=== PATIENT | male | born 1955 | race Hispanic/Latino ===

== ENCOUNTER 2017-04-04 06:49 | Inpatient (IN) | payer OTHER ==
[~2017-04-04] VITALS: Ht 175.3 cm; Wt 101.7 kg
--- NOTE | 2017-04-04 07:27 | ED GENERAL ADULT ---
History of Present Illness General Chief Complaint: Abdominal Pain/Flank Pain Stated Complaint: ABD PAIN, DIARRHEA SINCE LAST SATURDAY Source: patient Exam Limitations: no limitations Vital Signs & Intake/Output Vital Signs & Intake/Output Vital Signs Date Time Temp Pulse Resp B/P B/P Pulse O2 O2 Flow FiO2 Mean Ox Delivery Rate 04/04 1848 92 104/58 04/04 1600 98.1 92 18 104/58 97 Room Air 04/04 1555 98.0 82 20 108/51 99 Room Air 04/04 1440 98.4 88 20 98/50 99 Room Air 04/04 1253 100 108/60 04/04 1253 88 18 96/58 04/04 1210 84 20 82/50 04/04 1044 94/42 04/04 0915 94 18 96/56 04/04 0852 96/50 04/04 0847 66/38 04/04 0825 76/46 04/04 0813 102 18 68/46 04/04 0728 100 18 82/45 99 Room Air 04/04 0707 97.0 107 20 62/41 Allergies Coded Allergies: cimetidine (From TAGAMET) (UNKNOWN 04/04/17) Reconcile Medications Fenofibric Acid (Choline) (Fenofibric Acid) 135 MG CAPSULE.DR 1 CAP PO DAILY CHOLESTEROL (Reported) Lisinopril 20 MG TABLET 1 TAB PO DAILY HEART (Reported) Omeprazole 40 MG CAPSULE.DR 1 CAP PO DAILY GI (Reported) Simvastatin (Simvastatin*) 40 MG TABLET 1 TAB PO QPM CHOLESTEROL (Reported) Tamsulosin HCl 0.4 MG CAP.ER.24H 1 CAP PO DAILY PROSTATE (Reported) Triage Note: PT C/O ABDOMINAL PAIN, DIARRHEA AND SHAKINESS SINCE SATURDAY. WENT TO WALK IN ON SATURDAY AND TOLD HE HAD GASTROENTERITIS, TOLD NPO X 24 HRS. YESTERDAY ATE [employer] BROTH AND THINGS HAVE GOTTEN WORSE. PT STATES HIS NIPPLES ARE SORE.PT DENIES CP PT C/O DIZZINESS. HYPOTENSIVE IN TRIAGE Triage Nurses Notes Reviewed? yes Onset: Abrupt Duration: day(s): Timing: recent history HPI: 04/04/17 7:51 am 61-year-old male presents to the emergency department complaining of multiple episodes of diarrhea and nausea. He was seen in urgent care center several days ago and diagnosed with viral syndrome. He has a past medical history of hypertension and hyperlipidemia. He is complaining of severe weakness. He also has right lower quadrant abdominal pain. He denies any blood in the stool. He had a blood pressure of 80 in the waiting room, and so he was brought immediately into the ED. Past History Travel History Traveled to [place] past 21 day No Medical History Any Pertinent Medical History? see below for history Cardiovascular: hypertension, hyperlipidemia Gastrointestinal: GERD Surgical History Surgical History: none Psychosocial History What is your primary language Ch[place] Tobacco Use: Quit >30 days ago ETOH Use: occasional use Illicit Drug Use: denies illicit drug use Family History Hx Contributory? No Review of Systems Review of Systems Constitutional: Reports: fever. EENTM: Denies: visual changes. Respiratory: Denies: short of breath. Cardiovascular: Denies: chest pain. GI: Reports: abdominal pain, diarrhea, nausea. Genitourinary: Reports: no symptoms. Musculoskeletal: Reports: no symptoms. Skin: Reports: no symptoms. Neurological/Psychological: Reports: no symptoms. Hematologic/Endocrine: Reports: no symptoms. Immunologic/Allergic: Reports: no symptoms. Physical Exam Physical Exam General Appearance: well developed/nourished, alert, awake, anxious, mild distress Head: atraumatic, normal appearance Eyes: Bilateral: normal appearance, PERRL, EOMI. Ears, Nose, Throat: normal pharynx, normal ENT inspection Neck: normal inspection, supple, full range of motion Respiratory: normal breath sounds, chest non-tender, no respiratory distress Cardiovascular: regular rate/rhythm Peripheral Pulses: 4+ radial (R), 4+ radial (L) Gastrointestinal: tenderness Rectal: heme positive stool Extremities: normal inspection, normal range of motion Neurologic/Psych: no motor/sensory deficits, awake, alert, oriented x 3 Skin: intact, normal color, warm/dry Core Measures ACS in differential dx? No CVA/TIA Diagnosis: No Sepsis Present: No Sepsis Focused Exam Completed? No Progress Differential Diagnoses I considered the following diagnoses in my evaluation of the patient: [GI bleed, diverticulosis, diverticulitis, viral syndrome, influenza, appendicitis, dehydration and renal failure] Plan of Care: Orders Procedure Date/time Status CBC WITHOUT DIFFERENTIAL 04/05 599 Active BASIC ELECTROLYTES PLUS BUN&CR 04/05 599 Active Heart Healthy Diet 04/04 D Active Code Status 04/04 2058 Active Vital Signs 04/04 1615 Active Teach/Educate 02/15 1616 Active Pain Treatment and Response 04/04 1616 Active Nutritional Intake, Monitor 04/04 1616 Active Isolation 04/04 1616 Active Intake & Output 04/04 1616 Active Patient Care Conference 04/04 1616 Active Activity/Ambulation 04/04 1616 Active Pathway - chart 04/04 1432 Active House Staff 04/04 1432 Active US-RENAL/KIDNEY 04/04 1429 Active URINE DRUGS OF ABUSE 04/04 1429 Active URINE OSMOLALITY 04/04 1429 Active URINE LYTES, SPOT 04/04 1429 Active URINALYSIS 04/04 1429 Complete ACETOMINOPHEN 04/04 1429 Complete SERUM OSMOLALITY 04/04 1429 Complete ETHANOL 04/04 1429 Complete BASIC ELECTROLYTES PLUS BUN&CR 04/04 1429 Complete Patient Data 04/04 1402 Active ED Holding Orders 04/04 1359 Active Admit to inpatient 04/04 1359 Active Vital Signs 04/04 1359 Active CULTURE,STOOL 04/04 1246 Active C.DIFFICILE 04/04 1246 Active LACTIC ACID 04/04 1224 Active LACTIC ACID 04/04 1057 Complete TROPONIN LEVEL 04/04 0757 Complete LACTIC ACID 04/04 0757 Complete COMPREHENSIVE METABOLIC PANEL 04/04 0757 Complete CBC WITHOUT DIFFERENTIAL 04/04 0757 Complete EKG 04/04 0757 Active TYPE & SCREEN (NOT X-MATCH) 04/04 0757 Complete Intake & Output 04/04 0729 Active TRC EVALUATION (GEN) 04/04 UNK Active VTE Mechanical Prophylaxis 04/04 UNK Active Intake & Output 04/04 UNK Complete Osorio, Insertion/Removal/Asses 04/04 UNK Active Current Medications Sig/Stevie Start time Last Medication Dose Stop Time Status Admin Fenofibrate 145 MG DAILY 04/05 1000 AC (Tricor) Heparin Sodium 5,000 UNIT Q8 04/04 2200 AC 04/04 (Porcine) 2047 Atorvastatin Calcium 40 MG 1700 04/04 1700 AC (Lipitor) Tamsulosin HCl 0.4 MG DAILY 04/04 1607 AC (Flomax) Sodium Chloride 1,000 ML Q10H 04/04 1545 AC 04/04 (Normal Saline 0.9%) 04/05 1144 1715 Acetaminophen 650 MG Q6P PRN 04/04 1445 AC 04/04 (Tylenol) 1849 Acetaminophen 1,000 MG Q6P PRN 04/04 1445 AC (Ofirmev) Laboratory Tests 04/04/17 1830: Anion Gap 24 H, Estimated GFR 3 L, BUN/Creatinine Ratio 6.3 L, Serum Osmolality 317 H, Acetaminophen < 10.0 L, Serum Alcohol < 10.0 04/04/17 1745: Urinalysis HEAVY H, Urine Color BROWN H, Urine Clarity HAZY H, Urine pH 5.5, Ur Specific [place] >= 1.030, Urine Protein >=300 H, Urine Ketones NEG, Urine Nitrite NEG, Urine Bilirubin SMALL H, Urine Urobilinogen 0.2, Ur Leukocyte Esterase NEG, Ur Microscopic SEDIMENT EXAMINED, Urine RBC 5-10 H, Urine WBC 5- 10 H, Ur Epithelial Cells FEW, Urine Bacteria FEW H, Urine Hemoglobin MOD H, Urine Glucose NEG 04/04/17 1745: Methadone Screen Pending, Barbiturate Screen Pending, Ur Phencyclidine Scrn Pending, Amphetamines Screen Pending, U Benzodiazepines Scrn Pending, Urine Cocaine Screen Pending, Urine Cannabis Screen Pending, Urine Osmolality 321, Ur Random Creatinine Pending, Ur Random Sodium Pending, Ur Random Potassium Pending , Fraction Sodium Excret Pending 04/04/17 1524: Lactic Acid Cancelled 04/04/17 1230: Lactic Acid 1.1 04/04/17 1037: Anion Gap 31 H, Estimated GFR 3 L, BUN/Creatinine Ratio 6.2 L, Glucose 100 H , Lactic Acid 2.8 H, Calcium 8.8, Total Bilirubin 0.4, AST 18, ALT 31, Alkaline Phosphatase 41, Troponin I 0.02, Total Protein 6.9, Albumin 4.0, Globulin 2.9, Albumin/Globulin Ratio 1.4, CBC w Diff NO MAN DIFF REQ, RBC 4.74, MCV 81.9, MCH 28.2, MCHC 34.4, RDW 13.6, MPV 8.6, Gran % 64.2, Lymphocytes % 22.8, Monocytes % 12.5 H, Eosinophils % 0.2, Basophils % 0.3, Absolute Granulocytes 4.2, Absolute Lymphocytes 1.5, Absolute Monocytes 0.8 H, Absolute Eosinophils 0, Absolute Basophils 0 Microbiology 04/04 1246 STOOL: Clostridium difficile Toxin A & B - ORD 04/04 1246 STOOL: Stool Culture - ORD The patient was treated with IV fluids. Labs were sent Initial ED EKG: pending Departure Departure Disposition: STILL A PATIENT Condition: Stable Clinical Impression Primary Impression: Abdominal pain Secondary Impressions: Enteritis, GI bleed, Renal failure Referrals: Ivan TORRES,Roberto Luna (PCP/Family) Departure Forms: Customer Survey General Discharge Information Comments 04/04/17 7:30 am 61-year-old man presents to the emergency department complaining of nausea and multiple episodes of diarrhea. He was seen in urgent care center and diagnosed with a viral syndrome. He has past medical history of hypertension and hyperlipidemia. No recent travel outside the country. Now he presents with ongoing severe diarrhea, he denies any blood in the diarrhea. He also complains of weakness. He had a blood pressure of 80 in the waiting room. The patient was treated with IV fluids 5 L, the case was discussed with nephrology, the patient was admitted to the hospital for further care. Admission Note Spoke With: Katelynn Herbert MD Documentation of Exam: Documentation of any treatments & extenuating circumstances including Concerns Regarding Discharge (functional status, medication knowledge or non-compliance, living conditions, etc.) that warrant an admission rather than observation: [The patient needs admission for IV fluids, monitoring of hemodynamic status, renal consultation. I did speak briefly with Dr. Daniel who is on vacation. He agrees with the plan of care] Critical Care Note Critical Care Note Critical Care Time: 30-74 min
[2017-04-04] MEDS ORDERED: SIMVASTATIN40 M1 PO (09:01)
[2017-04-04] MEDS ORDERED: FENOFIBRIC ACI135 M1 PO (09:01)
[2017-04-04] MEDS ORDERED: TAMSULOSIN HCL0.4 M1 PO (09:01)
[2017-04-04] MEDS ORDERED: LISINOPRIL20 M1 PO (09:02)
[2017-04-04] MEDS ORDERED: OMEPRAZOLE40 M1 PO (09:02)
[2017-04-04 10:47] LABS: ABSOLUTE BASOPHIL COUNT 0 /CUMM (0.0-0.2); ABSOLUTE EOSINOPHIL COUNT 0 /CUMM (0.0-0.7); ABSOLUTE GRANULOCYTE CT 4.2 /CUMM (1.4-6.5); ABSOLUTE LYMPH COUNT 1.5 /CUMM (1.2-3.4); ABSOLUTE MONOCYTE COUNT 0.8 /CUMM (0.10-0.60); BASOPHIL % 0.3 % (0.0-2.0); EOSINOPHIL % 0.2 % (0-5); GRANULOCYTE % 64.2 % (42.2-75.2); HEMATOCRIT 38.8 % (42-52); MEAN CORPUSCULAR HGB 28.2 PG (27.0-31.0); MEAN CORPUSCULAR HGB CONC 34.4 G/DL (33.0-37.0); MEAN CORPUSCULAR VOLUME 81.9 FL (80.0-94.0); MEAN PLATELET VOLUME 8.6 FL (7.4-10.4); PLATELET COUNT 222 /CUMM (130-400); RBC DISTRIBUTION WIDTH 13.6 % (11.5-14.5); RED BLOOD CELL CT 4.74 /CUMM (4.70-6.10); WHITE BLOOD CELL COUNT 6.5 /CUMM (4.8-10.8)
--- NOTE | 2017-04-04 12:57 | RADIOLOGY REPORT ---
EXAMINATION: XR PORTABLE CHEST CLINICAL INFORMATION: CHF COMPARISON: None TECHNIQUE: Portable frontal view of the chest was obtained. FINDINGS: Minimal bibasilar opacities likely atelectasis. Lungs otherwise clear. Cardiac silhouette mediastinum pulmonary vascularity normal IMPRESSION: Minimal bibasilar opacities likely atelectasis No x-ray evidence for CHF
--- NOTE | 2017-04-04 13:37 | CT SCAN REPORT ---
EXAMINATION: CT ABDOMEN AND PELVIS WITHOUT CONTRAST CLINICAL INFORMATION: Left lower quadrant pain COMPARISON: To 3 to TECHNIQUE: Multidetector volumetric imaging was performed from the lung bases through the pubic symphysis. Sagittal and coronal reformatted images were obtained on the technologist workstation. Total exam dose-length product 843 mGy-cm FINDINGS: The lack of intravenous contrast limits evaluation of the solid visceral organs including the liver, spleen, pancreas, and kidneys. LUNG BASES: The visualized lung bases are unremarkable. LIVER, GALLBLADDER, AND BILIARY TREE: Liver is diffusely hypoattenuating consistent with diffuse hepatic steatosis. There is focal fatty sparing adjacent the fundus of the gallbladder. The gallbladder is unremarkable with no evidence of radiopaque gallstones, gallbladder wall thickening, or obvious pericholecystic inflammatory changes. PANCREAS: Limited non-contrast evaluation is normal. No zoran-pancreatic fluid. SPLEEN: Limited non-contrast evaluation is normal. ADRENAL GLANDS: Normal; no adrenal mass. KIDNEYS AND URETERS: Limited non-contrast evaluation is normal. No hydronephrosis, hydroureter, or calculi seen. No perinephric stranding. GASTROINTESTINAL TRACT: Small bowel and colon are non-dilated. No bowel wall thickening. No pericolonic inflammatory changes to suggest colitis or diverticulitis. Normal appendix. ABDOMINAL WALL: There is a fat-containing left umbilical hernia. LYMPH NODES: No pathologically enlarged lymph nodes in the abdomen or pelvis. VASCULAR: Normal caliber abdominal aorta. BLADDER: Unremarkable. PELVIC VISCERA: Normal noncontrast appearance of the prostate and seminal vesicles. OSSEOUS STRUCTURES: No acute or suspicious osseous abnormalities. IMPRESSION: No CT findings to explain left lower quadrant pain. No evidence of colitis or diverticulitis. No obstructive uropathy. Diffuse hepatic steatosis.
--- NOTE | 2017-04-04 14:45 | History & Physical ---
FlemingRamila 04/04/17 1445: General Information and HPI MD Statement: I have seen and personally examined TONNY MORALES SR and documented this H&P. The patient is a 61 year old M who presented with a patient stated chief complaint of [Diarrhea]. Source of Information: patient Exam Limitations: no limitations History of Present Illness: Mr. Morales is a 61-year-old male w/ PMH of HTN, HLD, GERD, presented to the emergency department with CC of multiple episodes of diarrhea and abdominal pain starting Thursday 03/30 after a eating out with family members. Patient started to have watery diarrhea the night after dinner on 03/30, and had been ongoing since then. Patient went to walkin clinic and was told to maintain hydration with Gatorade as he was diagnosed with viral syndrome. However, he felt the symptoms did not improve at all. He tried to eat a toast and scrambled egg on and could only finish part of the meal, and have to go to restroom repeatedly with watery diarrhea. Patient felt lightheaded and exertional dyspnea and presented to ER. In the ER, patient was complaining of severe weakness, and right lower quadrant abdominal pain. Patient denied any blood in the stool ever. Patient had a blood pressure of 80s in the waiting room, and so he was brought immediately into the ED to start IV fluid hydration, and had 5L of NS infused by the time we saw him. Patient felt improved after IV fluid however still have 2 more episodes of diarrhea in the ER.. Allergies/Medications Allergies: Coded Allergies: cimetidine (From TAGAMET) (UNKNOWN 04/04/17) Home Med list Fenofibric Acid (Choline) (Fenofibric Acid) 135 MG CAPSULE.DR 1 CAP PO DAILY CHOLESTEROL (Reported) Lisinopril 20 MG TABLET 1 TAB PO DAILY HEART (Reported) Omeprazole 40 MG CAPSULE.DR 1 CAP PO DAILY GI (Reported) Simvastatin (Simvastatin*) 40 MG TABLET 1 TAB PO QPM CHOLESTEROL (Reported) Tamsulosin HCl 0.4 MG CAP.ER.24H 1 CAP PO DAILY PROSTATE (Reported) Past History Travel History Traveled to [place] past 21 day No Medical History Cardiovascular: hypertension, hyperlipidemia Respiratory: SLLEP APNEA Gastrointestinal: GERD Renal: ? CYST ON KIDNEY Surgical History Surgical History: none Past Family/Social History Psychosocial History Smoking Status: Former Smoker ETOH Use: occasional use Illicit Drug Use: marijuana, Last use of Marijuana 1 month ago Review of Systems Review of Systems Constitutional: Reports: see HPI. Exam & Diagnostic Data Last 24 Hrs of Vital Signs/I&O Vital Signs Date Time Temp Pulse Resp B/P B/P Pulse O2 O2 Flow FiO2 Mean Ox Delivery Rate 04/04 1555 98.0 82 20 108/51 99 Room Air 04/04 1440 98.4 88 20 98/50 99 Room Air 04/04 1253 100 108/60 04/04 1253 88 18 96/58 04/04 1210 84 20 82/50 04/04 1044 94/42 04/04 0915 94 18 96/56 04/04 0852 96/50 04/04 0847 66/38 04/04 0825 76/46 04/04 0813 102 18 68/46 04/04 0728 100 18 82/45 99 Room Air 04/04 0707 97.0 107 20 62/41 Intake & Output 04/04 1600 04/04 0800 04/04 0000 Intake Total 5000 Output Total Balance 5000 Intake, IV 5000 Patient 106.594 kg Weight Weight Reported by Patient Measurement Method Physical Exam General Appearance Alert, Oriented X3, Cooperative, No Acute Distress Skin No Significant Lesion Skin Temp/Moisture Exam: Cool/Dry Sepsis Skin Exam (color): Normal for Ethnicity HEENT Atraumatic, PERRLA Neck Supple, No JVD Cardiovascular Regular Rate, Normal S1, Normal S2 Lungs Clear to Auscultation, Normal Air Movement Abdomen Normal Bowel Sounds, Soft, diffuse pain /10 Neurological Normal Speech, Strength at 5/5 X4 Ext Extremities No Edema, Normal Pulses, No Tenderness/Swelling Diagnostic Data EKG Results NSR w/o significant ST-T abnormalities Assessment/Plan Assessment: Mr. Morales is a 61-year-old male w/ PMH of HTN, HLD, GERD, BPH, Osteoarthritis, presented to the emergency department with CC of multiple episodes of diarrhea and abdominal pain starting Thursday 03/30 after a eating out with family members. Patient started to have watery diarrhea the night after dinner on 03/30, and had been ongoing since then. Patient went to walkin clinic and was told to maintain hydration with Gatorade as he was diagnosed with viral syndrome. However, he felt the symptoms did not improve at all. He tried to eat a toast and scrambled egg on 04/03 and could only finish part of the meal, and have to go to restroom repeatedly with watery diarrhea. Patient felt lightheaded and exertional dyspnea and presented to ER. In the ER, patient was complaining of severe weakness, and right lower quadrant abdominal pain. Patient denied any blood in the stool ever. Patient had a blood pressure of 80s in the waiting room , and so he was brought immediately into the ED to start IV fluid hydration, and had 5L of NS infused by the time we saw him. Patient felt improved after IV fluid however still have 2 more episodes of diarrhea in the ER. Of note, none of the family member had similar symptoms after dinner from Saturday. On admission Vitals:Tmax 98.4, HR 80s-100s, RR 18-20, BP 62/41 - 108/51 Physical exam as above -CBC: Unremarkable -BMP: Na 141, K 5.5, Cl 103, CO2 7, Anion Gap 31, BUN 93, Cr 14.9, Glucose 100, Lactic Acid 2.8 -> 1.1 -CXR: Minimal bibasilar opacities likely atelectasis, No evidence of CHF -AB CT: No CT findings to explain left lower quadrant pain. No evidence of colitis or diverticulitis. No obstructive uropathy. Diffuse hepatic Steatosis. -EKG: Normal sinus rhythm without significant ST-T abnormalities. -Interventions in ER: IV NS x 5 bags Assessment: Mr. Morales is a 61-year-old male w/ PMH of HTN, HLD, GERD, presented to the emergency department with CC of multiple episodes of diarrhea and abdominal pain starting Thursday 03/30 after a eating out with family members. Patient started to have watery diarrhea the night after dinner on 03/30, and had been ongoing since then. Patient went to walkin clinic and was told to maintain hydration with Gatorade as he was diagnosed with viral syndrome. However, he felt the symptoms did not improve at all. He tried to eat a toast and scrambled egg on and could only finish part of the meal, and have to go to restroom repeatedly with watery diarrhea. Patient felt lightheaded and exertional dyspnea and presented to ER. Patient's lab on admission represented High AG Metabolic Acidosis with calculated serum OSM 285. Patient's persistent diarrhea would mostly cause a Non -AG metabolic acidosis, however patient's lactic acidosis/Starvational ketoacidosis (no [place] lab yet), likely from dehydration, may still contribute to a clinical picture of HAGMA. Patient had no hx of using ASA, Tylenol for osteoarthritis, diabetes, and denied heavy use of alcohol as a social drinker. Patient would need further evaluation to confirm rule out above cause, and stablization of volume status. Patient denied much urine output after 5L of fluid and had no sensation of urgency on pressing of suprapubic area. Patient's Cr elevation to 14 could be a combined picture of CÉSAR from dehydration and ATN from hypotensive episodes. Problem list #HAGMA #Diarrhea #Acute renal failure/ATN #Chronic hx of HTN, HLD, BPH, osteoarthritis, GERD Plan - Admit to Gen Med - Continue IVF NS @ 100cc/hr - Continued home meds including Fenofibrate, Lipitor, Flomax - Hold PPI, lisinopril 2/2 patient's CÉSAR/ATN - Recheck BEP tonight and in the AM. - Pending final stool/blood culture. - Pending Renal U/S to rule out any acute issues. DVT prophylaxis Heparin + ALPS Heart Healthy Diet Full Code As Ranked By This Provider Problem List: 1. Enteritis 2. Abdominal pain 3. Renal failure Core Measures/Misc (11/04) Acute Coronary Syndrome ACS Diagnosis: No Congestive Heart Failure Congestive Heart Failure Diagnosis No Cerebrovascular Accident CVA/TIA Diagnosis: No VTE (View Protocol) VTE Risk Factors Age>40 No Mechanical VTE Prophylaxis d/t N/A MechProphylax Ordered No VTE Pharm Prophylaxis d/t NA PharmProphylax ordered Sepsis (View protocol) Sepsis Present: No Arian Henao 04/04/17 1456: Attending MD Review Statement Attending Statement Attending MD Statement: examined this patient, discuss w/resident/PA/STUDENT FINANCIAL SERVICES COUNSELOR, agreed w/resident/PA/STUDENT FINANCIAL SERVICES COUNSELOR, discussed with family, reviewed EMR data (avail), discussed with nursing, discussed with case mgmt, reviewed images, amended to note Attending Assessment/Plan: 61 o/m with unknown pmh comes with vomiting and diarrhea. Patient found to have acute renal failure with high anion gap metabolic acidosis. Patient received 5l of NS fluids in ER. Patient was hypotensive on arrival to ER but responded to fluid challenge. Patient is being admitted to inpatient medical services for ARF possible IVVD possible ATN. Patient continue fluids, frequent bmp and nephrology consult. Send for urine lytes, serum osmolality, urine osmolality, Renal USG, salicylate level, blood alcohol level. gi/dvt prophylaxis full code. Milind Cartwright MD 04/04/17 1539: Resident Review Statement Resident Statement: examined this patient, discussed with administrative intern, agreed with administrative intern, reviewed EMR data (avail), discussed with nursing, discussed with case mgmt, reviewed images, amended to note Other Findings: 61 yo M with pmh of hypertension, hyperlipidemia, GERD, BPH, presented to the emergency department with complaints of diarrhea and abdominal cramps, that started after eating out with family members since past 4 days. Rest of his family members did not have any similar symptoms. He started having profuse watery diarrhea for which he visited a walk in clinic and was suggested to maintain hydration with Gatorade with possible viral diarrhea. His symptoms did not improve, and had very poor oral intake, felt lightheaded with exertional dyspnea which made him present to the emergency department. He also had mild right lower quadrant abdominal pain. He described his bowel movement as profuse and watery, nonbloody, [id number] and denied any antibiotic use in the past week. Vitals, physical examination, and labs as mentioned above, remarkable for anion gap 31, lactic acidosis, and high creatinine. Of note, we do not have his baseline lab values including his renal function. Of note, in the emergency department his systolic blood pressure was initially in the 80s, he received IV fluids a total of 5 L of normal saline during which time his systolic blood pressure at 1. had dropped to 60s. Patient however felt significant improvement after the 5 L of normal saline, and had 2 more episodes of bowel movement while in the ED. Patient is being admitted in the general medical floor for the management of following issues: #Acute and severe dehydration, secondary to diarrhea, hypovolemic shock Patient received 5 L of fluid in the emergency department, and is still having loose bowel movement thus we will continue to hydrate him with normal saline at 100 mL per hour and check lactic acid, and repeat his BEP to make sure that he is adequately hydrated. We are sending stool examination for C. difficile, and also for ova and parasite for common causes of diarrhea. We are also sending stool culture. We plan to start antibiotics if he spikes fever or has leukocytosis. CT abd did not show any acute colitis. #High anion gap metabolic acidosis Patient has high anion gap metabolic acidosis, and diarrhea alone might not be the only explanation for his condition thus we are sending, and lab tests to check alcohol level, acetaminophen level, etc. #Acute renal failure, likely due to hypovolemic shock/ATN Patient's clinical picture correlates with acute renal failure, baseline unknown , likely due to hypovolemic shock that he presented with an given his low blood pressure, he might have acute tubular necrosis as well. Emergency department contacted nephrology and proceeded with fluid resuscitation, and we'll continue to monitor his BEP and in case it is worrisome, we will contact nephrology stat. We will have a low threshold to transfer for the patient to ICU if his condition deteriorates. Night team signed out accordingly. We are also holding his lisinopril, and PPI. UA, U tox, Urine lytes, serum and urine osmolarity sent to further evaluate acute renal failure sent. Osorio cath placed for strict I/O monitoring as he did NOT have urine output in the ED. CAT scan of abdomen did not reveal any obstructive or renal features but scan of kidneys and ureter was limited. No obstruction or calculi or perinephric stranding noted. #Will continue rest of his home medications. Heart healthy diet, encouraging fluids orally DVT prophylaxis with subcutaneous heparin and ALPS Full code.
--- NOTE | 2017-04-04 15:53 | PN- Student ---
Subjective Subjective: Chief Complaint: Diarrhea and weakness HPI:Mr.Louis Morales is a 61 year old, male with a past medical history hypertension, hyperlipidemia,GERD who presented to the ED complaining of multiple episodes of diarrhea and nausea starting on Saturday.Patient reported on Saturday that he had symptoms of a viral infection ?,shakes and diarrhea which was watery and loose .These episodes occured every hour.Patient reported that he did eat out and his meal consisted of creamy carrot soup +rice+cooked octopus+expresso.The diarrhea was persitent and he began feeling fatigued ,so he decided to go to [facility] walk in clinic on Saturday where he was advised to not eat solids and continue on a diet of water and gatorade and that he may have a possible parasite ? infection.Yesterday the patient attempted to eat solids at breakfast (eggs +toast) but as soon as he ate ,diarrhea ensued.Patient decided to come in today because the of diarrhea persisting for 6 days,dizziness and light headedness when getting up from bed and shortness of breath on exertion.Patient reports lower abdominal pain, 2/10 on pain scale. Patient had 2 bowel movements since coming into the ED. Past History Medical History Cardiovascular: hypertension, hyperlipidemia Respiratory: obstructive sleep apnea Gastrointestinal: GERD Renal: NONE (kidney cyst) Surgical History Surgical History: non-contributory Psychosocial History Where Do You Live? Home Who Do You Live With? spouse Smoking Status: Former Smoker (quit in 1994) ETOH Use: occasional use Illicit Drug Use: marijuana (last use was 1 month ago) Functional Ability ADLs Independent: dressing, eating, toileting, bathing. 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 EENTM: Denies: blurred vision, double vision, visual changes. Cardiovascular: Denies: chest pain, palpitations. Respiratory: Reports: orthopnea, short of breath. GI: Reports: abdominal pain, bloating, diarrhea, distention, nausea. Genitourinary: Reports: no symptoms. Musculoskeletal: Reports: no symptoms. Neurological/Psychological: Reports: headache. Denies: numbness, paresthesia, tingling. Objective Objective: Vital Signs Date Time Temp Pulse Resp B/P B/P Pulse O2 O2 Flow FiO2 Mean Ox Delivery Rate 02/15 1440 98.4 88 20 98/50 99 Room Air 04/04 1253 100 108/60 04/04 1253 88 18 96/58 04/04 1210 84 20 82/50 04/04 1044 94/42 04/04 0915 94 18 96/56 04/04 0852 96/50 04/04 0847 66/38 04/04 0825 76/46 04/04 0813 102 18 68/46 04/04 0728 100 18 82/45 99 Room Air 04/04 0707 97.0 107 20 62/41 Intake & Output 04/04 1600 04/04 0800 04/04 0000 Intake Total 5000 Output Total Balance 5000 Intake, IV 5000 Patient 235 lb Weight Weight Reported by Patient Measurement Method Results Results: Laboratory Tests 04/04/17 1524: Lactic Acid Cancelled 04/04/17 1230: Lactic Acid 1.1 04/04/17 1037: Anion Gap 31 H, Estimated GFR 3 L, BUN/Creatinine Ratio 6.2 L, Glucose 100 H , Lactic Acid 2.8 H, Calcium 8.8, Total Bilirubin 0.4, AST 18, ALT 31, Alkaline Phosphatase 41, Troponin I 0.02, Total Protein 6.9, Albumin 4.0, Globulin 2.9, Albumin/Globulin Ratio 1.4, CBC w Diff NO MAN DIFF REQ, RBC 4.74, MCV 81.9, MCH 28.2, MCHC 34.4, RDW 13.6, MPV 8.6, Gran % 64.2, Lymphocytes % 22.8, Monocytes % 12.5 H, Eosinophils % 0.2, Basophils % 0.3, Absolute Granulocytes 4.2, Absolute Lymphocytes 1.5, Absolute Monocytes 0.8 H, Absolute Eosinophils 0, Absolute Basophils 0 Microbiology 04/04 1246 STOOL: Clostridium difficile Toxin A & B - ORD 04/04 1246 STOOL: Stool Culture - ORD Physical Exam Physical Exam General Appearance: no apparent distress, alert, awake, comfortable, obese Head: atraumatic, normal appearance Eyes: Bilateral: PERRL. Respiratory: normal breath sounds, lungs clear Cardiovascular: regular rate/rhythm Core Measures ACS in differential dx? No CVA/TIA Diagnosis: No Sepsis Present: No Sepsis Focused Exam Completed? No Assessment/Plan Assessment: Mr. Morales is a 61-year-old male w/ PMH of HTN, HLD, GERD, presented to the emergency department with a CC of multiple episodes of watery diarrhea and abdominal pain starting Thursday 03/30 after a eating out and it has been ongoing since then.Patient went to [facility] clinic on 04[facility]02 and was told to drink water and Gatorade and avoid solid foods.They thought his presentation was most likely viral in etiology.On 04/03 patient attempted to eat toast and eggs for breakfast but could not complete his meal due to diarrhea. He described his bowel movement as profuse and watery, nonbloody, [id number] and denied any antibiotic use in the past week.His diarrhea did not improve and patient felt lightheaded and had exertional dyspnea therefore decided to present to ER. On Admission patient presented with a high anion gap metabolic acidosis with calculated serum OSM 285.This is most likey due to dehydration / starvation ( possible ketoacidosis) other possible cause have not been ruled out and samples have been sent to the lab to test for salicylic acid (ASA)level,acetaminophen levels,ethanol,uric acid.Patient recieved 5L of fluid in the ED with mimal urine output therefore stabalization of volume status is needed.Creatinine was found to be 14 which can be attributable to CÉSAR and ATN due to the patients severre dehydrated state and hypotention (BP on admission was 62/41) Problem List: Acute severe dehydration secondary to diarrhea Hypovolemic shock due to diarrhea and dehydration High anion gap metabolic acidosis Acute renal failure due to hypotention + dehydration Plan: * Acute severe dehydration secondary to diarrhea,hypovolemic cuauhtemoc Patient recieved 5L of fluid in the ED and is still having loose bowel movements.Will continue to rehydrate with Normal Saline at 100cc/hr -Repeat BMP,lactic acid -culture stool * High anion gap metabolic acidosis Patient was found to have High anion gap metabolic acidosis on admission.Dehydration maybe be the cause but to rule out any other causes send for urine electrolytes, serum osmolality, urine osmolality, Renal USG, salicylate level, blood alcohol level,Utox. * Acute renal failure due to hypotention + dehydration Patients clinical picture and current labs point towards acute renal failure likely dut to persistent diarrhea,dehydration and hypotention.Given the patients Low BP acute tubular necrosis can also be a likely cause.CT scan of abdomen did not reveal any obstructive or renal features but scan of kidneys and ureter was limited. No obstruction or calculi or perinephric stranding noted. -monitor BEP -hold nephrotoxic drugs -continue fluids -solano cath to monitor I/O's -nephrology consult DVT prophylaxis:Subcutaneous heparin + ALPS CODE:FULL Diet:Heart healthy
[2017-04-04 16:00] VITALS: BP 104/58
[2017-04-04 22:05] VITALS: BP 108/62; BP 118/80
[2017-04-05 07:18] VITALS: BP 116/58
[2017-04-05 07:54] LABS: ABSOLUTE BASOPHIL COUNT 0 /CUMM (0.0-0.2); ABSOLUTE EOSINOPHIL COUNT 0.1 /CUMM (0.0-0.7); ABSOLUTE LYMPH COUNT 1.7 /CUMM (1.2-3.4); ABSOLUTE MONOCYTE COUNT 0.7 /CUMM (0.10-0.60); BASOPHIL % 0.5 % (0.0-2.0); EOSINOPHIL % 1.1 % (0-5); HEMATOCRIT 35.3 % (42-52); MEAN CORPUSCULAR HGB 28.4 PG (27.0-31.0); MEAN CORPUSCULAR HGB CONC 34.2 G/DL (33.0-37.0); MEAN CORPUSCULAR VOLUME 82.8 FL (80.0-94.0); MEAN PLATELET VOLUME 8.3 FL (7.4-10.4); PLATELET COUNT 209 /CUMM (130-400); RBC DISTRIBUTION WIDTH 14.1 % (11.5-14.5); RED BLOOD CELL CT 4.26 /CUMM (4.70-6.10); WHITE BLOOD CELL COUNT 5.6 /CUMM (4.8-10.8)
--- NOTE | 2017-04-05 07:55 | Cons- Nephrology ---
General Information and HPI Consulting Request Date of Consult: 04/05/17 Requested By: Eralene TORRES,Arian Reason for Consult: Renal failure Source of Information: patient, family, old records Exam Limitations: no limitations History of Present Illness: 61 yr old WM w mult med problems including SUSI, HTN, hyperlipidemia, & CKD admit yesterday w several days of severe watery diarrhea. Found hypotensive to 60s systolic requiring volume resuscitation w IV NS. Known mild-mod, stage 2-3, CKD w last available baseline from 2007 Cr 1.3 in setting of dip proteinuria, hematuria, & R sided duplicated collecting system by imaging. BUN/Cr found elevated 93/14.9 w associated metabolic acidosis on admit. Outpt meds included ACEI & admits taking ~ 400 mg ibuprofen bid prior to hospitalizatin but no record IV contrast. No gross uremic or denies SOB & making urine over night. No hx stones or UTIs. No collagen vasc/vasculitis sx. Allergies/Medications Allergies: Coded Allergies: cimetidine (From TAGAMET) (UNKNOWN 04/04/17) Home Med List: Fenofibric Acid (Choline) (Fenofibric Acid) 135 MG CAPSULE.DR 1 CAP PO DAILY CHOLESTEROL (Reported) Lisinopril 20 MG TABLET 1 TAB PO DAILY HEART (Reported) Omeprazole 40 MG CAPSULE.DR 1 CAP PO DAILY GI (Reported) Simvastatin (Simvastatin*) 40 MG TABLET 1 TAB PO QPM CHOLESTEROL (Reported) Tamsulosin HCl 0.4 MG CAP.ER.24H 1 CAP PO DAILY PROSTATE (Reported) Current Medications: Current Medications Sig/Stevie Start time Last Medication Dose Route Stop Time Status Admin Acetaminophen 650 MG Q6P PRN 04/04 1445 AC 04/04 PO 1849 Acetaminophen 1,000 MG Q6P PRN 04/04 1445 AC IV Atorvastatin Calcium 40 MG 1700 04/04 1700 AC PO Fenofibrate 145 MG DAILY 04/05 1000 AC PO Heparin Sodium 5,000 UNIT Q8 04/04 2200 AC 04/05 (Porcine) SC 0543 Oxycodone/ 2 TAB ONCE ONE 04/04 2030 DC 04/04 Acetaminophen PO 04/04 2030 2047 Sodium Chloride 1,000 ML Q10H 04/04 1545 AC 04/05 IV 04/05 1144 0327 Sodium Chloride 1,000 ML BOLUS ONE 04/04 1245 DC IV 04/04 1344 Sodium Chloride 1,000 ML BOLUS ONE 04/04 1245 DC 02/15 IV / 1344 1507 Sodium Chloride 1,000 ML BOLUS ONE 04/04 1245 DC /15 IV / 1344 1100 Sodium Chloride 1,000 ML BOLUS ONE 04/04 1245 DC 02/15 IV / 1344 1250 Sodium Chloride 1,000 ML BOLUS ONE 04/04 1245 DC / IV 04/04 1344 0915 Sodium Chloride 1,000 ML BOLUS ONE 04/04 0800 DC / IV 04/04 0859 0816 Sodium Chloride 1,000 ML BOLUS ONE 04/04 0800 DC / IV 04/04 0859 0816 Tamsulosin HCl 0.4 MG DAILY 04/04 1607 AC PO Review of Systems Review of Systems Constitutional: Reports: no symptoms. EENTM: Reports: no symptoms. Cardiovascular: Reports: no symptoms. Respiratory: Reports: no symptoms. GI: Reports: see HPI, abdominal pain, diarrhea. Genitourinary: Reports: no symptoms. Musculoskeletal: Reports: no symptoms. Skin: Reports: no symptoms. Neurological/Psychological: Reports: other (dizziness & lightheadedness). Hematologic/Endocrine: Reports: no symptoms. Immunologic/Allergic: Reports: no symptoms. 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 Home Who Do You Live With? spouse Smoking Status: Former Smoker ETOH Use: occasional use Illicit Drug Use: marijuana, Last use of Marijuana 1 month ago Functional Ability ADLs Independent: dressing, eating, toileting, bathing. Employment History Employment: Employed Profession/Employer: [employer] Exam & Diagnostic Data Vital Signs and I&O Vital Signs Date Time Temp Pulse Resp B/P B/P Pulse O2 O2 Flow FiO2 Mean Ox Delivery Rate 04/05 0718 97.3 82 20 116/58 96 04/04 2205 98.7 92 22 108/62 97 Room Air 04/04 1848 92 104/58 04/04 1600 98.1 92 18 104/58 97 Room Air 04/04 1555 98.0 82 20 108/51 99 Room Air 04/04 1440 98.4 88 20 98/50 99 Room Air 04/04 1253 100 108/60 04/04 1253 88 18 96/58 04/04 1210 84 20 82/50 04/04 1044 94/42 04/04 0915 94 18 96/56 04/04 0852 96/50 04/04 0847 66/38 Intake & Output 04/05 1600 04/05 0400 04/04 1600 04/04 0400 04/03 1600 04/03 0400 Intake Total 3624 311 4247 Output Total 200 Balance 898 725 9573 Intake, IV 553 375 3417 Intake, Oral 240 240 Number 1 1 Bowel Movements Output, Urine 200 Patient 244 lb 235 lb Weight Weight Bed scale Reported by Patient Measurement Method Physical Exam General Appearance: well developed/nourished, no apparent distress, alert Head: atraumatic, normal appearance Eyes: Bilateral: normal appearance. 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, no asterixis Skin: intact, normal color, warm/dry Lymphatic: no anterior cervical poncho, no axillary adenopathy Results Pertinent Lab Results: Laboratory Tests 04/05 04/05 04/04 0643 0105 1830 Chemistry Sodium (137 - 145 mmol/L) Pending 140 137 Potassium (3.5 - 5.1 mmol/L) Pending 4.5 4.6 Chloride (98 - 107 mmol/L) Pending 107 103 Carbon Dioxide (22 - 30 mmol/L) Pending 10 L 10 L Anion Gap (5 - 16) Pending 23 H 24 H BUN (9 - 20 mg/dL) Pending 97 H 97 H Creatinine (0.7 - 1.2 mg/dL) Pending 15.6 *H 15.3 *H Estimated GFR (>60 ml/min) 3 L 3 L BUN/Creatinine Ratio (7 - 25 %) Pending 6.2 L 6.3 L Hemoglobin A1c Pending Serum Osmolality (285 - 295 MOSM/KG) 317 H Hematology CBC w Diff NO MAN DIFF REQ WBC (4.8 - 10.8 /CUMM) 5.6 RBC (4.70 - 6.10 /CUMM) 4.26 L Hgb (14.0 - 18.0 G/DL) 12.1 L Hct (42 - 52 %) 35.3 L MCV (80.0 - 94.0 FL) 82.8 MCH (27.0 - 31.0 PG) 28.4 MCHC (33.0 - 37.0 G/DL) 34.2 RDW (11.5 - 14.5 %) 14.1 Plt Count (130 - 400 /CUMM) 209 MPV (7.4 - 10.4 FL) 8.3 Gran % (42.2 - 75.2 %) 54.0 Lymphocytes % (20.5 - 51.1 %) 31.2 Monocytes % (1.7 - 9.3 %) 13.2 H Eosinophils % (0 - 5 %) 1.1 Basophils % (0.0 - 2.0 %) 0.5 Absolute Granulocytes (1.4 - 6.5 /CUMM) 3.0 Absolute Lymphocytes (1.2 - 3.4 /CUMM) 1.7 Absolute Monocytes (0.10 - 0.60 /CUMM) 0.7 H Absolute Eosinophils (0.0 - 0.7 /CUMM) 0.1 Absolute Basophils (0.0 - 0.2 /CUMM) 0 Toxicology Acetaminophen (10.0 - 30.0 ug/mL) < 10.0 L Serum Alcohol (<10 MG/DL) < 10.0 04/04 04/04 04/04 1745 1745 1524 Chemistry Lactic Acid Cancelled Toxicology Urine Opiates Screen (>2000 NG/ML) < 100.00 Methadone Screen (>300 NG/ML) < 40 Barbiturate Screen (>200 NG/ML) < 60 Ur Phencyclidine Scrn (>25 NG/ML) < 6.00 Amphetamines Screen (>1000 NG/ML) < 100 U Benzodiazepines Scrn (>200 NG/ML) < 85 Urine Cocaine Screen (>300 NG/ML) < 50 Urine Cannabis Screen (>50 NG/ML) < 5.00 Urines Urinalysis HEAVY H Urine Color (YEL,AMB,STR) BROWN H Urine Clarity (CLEAR) HAZY H Urine pH (5.0 - 8.0) 5.5 Ur Specific [place] (1.001 - 1.035) >= 1.030 Urine Protein (NEG,<30 MG/DL) >=300 H Urine Ketones (NEG) NEG Urine Nitrite (NEG) NEG Urine Bilirubin (NEG) SMALL H Urine Urobilinogen (0.1 - 1.0 EU/dl) 0.2 Ur Leukocyte Esterase (NEG) NEG Ur Microscopic SEDIMENT EXAMINED Urine RBC (0 - 5 /HPF) 5-10 H Urine WBC (0 - 2 /HPF) 5-10 H Ur Epithelial Cells (NONE,FEW) FEW Urine Bacteria (NEG/NONE) FEW H Urine Hemoglobin (NEG) MOD H Urine Osmolality (300 - 1000 MOSM/KG) 321 Ur Random Creatinine (mg/dL) 333.2 U Random Total Protein (0 - 12 mg/dL) Pending Ur Random Sodium (30 - 90 mmol/L) 56 Ur Random Potassium (mmol/L) 25.7 Fraction Sodium Excret (<1% %) 1.8 H Urine Glucose (N MG/DL) NEG 04/04 04/04 04/04 1230 1224 1037 Chemistry Sodium (137 - 145 mmol/L) 141 Potassium (3.5 - 5.1 mmol/L) 5.5 H Chloride (98 - 107 mmol/L) 103 Carbon Dioxide (22 - 30 mmol/L) 7 *L Anion Gap (5 - 16) 31 H BUN (9 - 20 mg/dL) 93 H Creatinine (0.7 - 1.2 mg/dL) 14.9 *H Estimated GFR (>60 ml/min) 3 L BUN/Creatinine Ratio (7 - 25 %) 6.2 L Glucose (65 - 99 mg/dL) 100 H Lactic Acid (0.7 - 2.1 mmol/L) 1.1 Cancelled 2.8 H Calcium (8.4 - 10.2 mg/dL) 8.8 Total Bilirubin (0.2 - 1.3 mg/dL) 0.4 AST (17 - 59 U/L) 18 ALT (21 - 72 U/L) 31 Alkaline Phosphatase (< 127 U/L) 41 Troponin I (<0.11 ng/ml) 0.02 Total Protein (6.3 - 8.2 g/dL) 6.9 Albumin (3.5 - 5.0 g/dL) 4.0 Globulin (1.9 - 4.2 gm/dL) 2.9 Albumin/Globulin Ratio (1.1 - 2.2 %) 1.4 Hematology CBC w Diff NO MAN DIFF REQ WBC (4.8 - 10.8 /CUMM) 6.5 RBC (4.70 - 6.10 /CUMM) 4.74 Hgb (14.0 - 18.0 G/DL) 13.3 L Hct (42 - 52 %) 38.8 L MCV (80.0 - 94.0 FL) 81.9 MCH (27.0 - 31.0 PG) 28.2 MCHC (33.0 - 37.0 G/DL) 34.4 RDW (11.5 - 14.5 %) 13.6 Plt Count (130 - 400 /CUMM) 222 MPV (7.4 - 10.4 FL) 8.6 Gran % (42.2 - 75.2 %) 64.2 Lymphocytes % (20.5 - 51.1 %) 22.8 Monocytes % (1.7 - 9.3 %) 12.5 H Eosinophils % (0 - 5 %) 0.2 Basophils % (0.0 - 2.0 %) 0.3 Absolute Granulocytes (1.4 - 6.5 /CUMM) 4.2 Absolute Lymphocytes (1.2 - 3.4 /CUMM) 1.5 Absolute Monocytes (0.10 - 0.60 /CUMM) 0.8 H Absolute Eosinophils (0.0 - 0.7 /CUMM) 0 Absolute Basophils (0.0 - 0.2 /CUMM) 0 Imaging/Other Studies: BLE CHES EXAM TYPE: RAD - XRY-PORTABLE CHEST XRAY EXAMINATION: XR PORTABLE CHEST TECHNIQUE: Portable frontal view of the chest was obtained. FINDINGS: Minimal bibasilar opacities likely atelectasis. Lungs otherwise clear. Cardiac silhouette mediastinum pulmonary vascularity normal IMPRESSION: Minimal bibasilar opacities likely atelectasis CT: KIDNEYS AND URETERS: Limited non-contrast evaluation is normal. No hydronephrosis, hydroureter, or calculi seen. No perinephric stranding. Assessment/Plan Assessment/Recommendations Assessment: 1. CÉSAR: recent baseline renal unknown; major differential between prerenal due to volume contraction due to severe diarrhea in face of ACEI & NSAIDs vs ATN due to same as well as hypotension. Can't exclude acute GN w abnormal u/a but abnl u /a appears chronic. No obstruction by CT but will screen for paraprotein. Needs rhabdo excluded as on combination statin & fibrate as outpt. No hematologic findings to suggest TTP/HUS. Clinically not overloaded & no immediate HD imperative this morning. 2. Met Acid: due to combination stool loss & CÉSAR; need bicarb supplement 3. CKD: mild-mod, stage 2-3, w baseline Cr 1.3 in 2007. Etiology: ? HTN ? chronic GN w dip blood & protein in past. Recommendations: 1. change IV isotonic Na bicarb 125 ml/hr 2. Na bicarb 1300 mg bid po 3. check CK 4. d/c fenofibrate & statin 5. Uprot/Cr ratio 6. SIEP 7. ANCA, ELIANE, C3, C4, Hep B & C seroligies 8. check Mg & phos 9. serial renal function 10. obtain old labs from PCP IMPRESSION: Minimal bibasilar opacities likely atele COMPARISON: None TECHNIQUE: Portable frontal view of the chest was obtained. FINDINGS: Minimal bibasilar opacities likely atelectasis. Lungs otherwise clear. Cardiac silhouette mediastinum pulmonary vascularity normal IMPRESSION: COMPARISON: None TECHNIQUE: Portable frontal view of the chest was obtained. FINDINGS: Minimal bibasilar opacities likely atelectasis. Lungs otherwise clear. Cardiac silhouette mediastinum pulmonary vascularity normal IMPRESSION: Assessment/Plan Assessment/Recommendations Assessment: 1. CÉSAR: recent baseline renal unknown; major differential between prerenal due to volume contraction due to severe diarrhea in face of ACEI & NSAIDs vs ATN due to same as well as hypotension. Can't exclude acute GN w abnormal u/a but abnl u /a appears chronic. No obstruction by CT but will screen for paraprotein. Needs rhabdo excluded as on combination statin & fibrate as outpt. No hematologic findings to suggest TTP/HUS. Clinically not overloaded & no immediate HD imperative this morning. 2. Met Acid: due to combination stool loss & CÉSAR; need bicarb supplement 3. CKD: mild-mod, stage 2-3, w baseline Cr 1.3 in 2008. Etiology: ? HTN ? chronic GN w dip blood & protein in past. Recommendations: 1. change IV isotonic Na bicarb 125 ml/hr 2. Na bicarb 1300 mg bid po 3. check CK 4. d/c fenofibrate & statin 5. Uprot/Cr ratio 6. SIEP 7. ANCA, ELIANE, C3, C4, Hep B & C seroligies 8. check Mg & phos 9. serial renal function
--- NOTE | 2017-04-05 09:20 | PN- Housestaff ---
FlemingRamila 04/05/17 0909: Subjective Follow-up For: #HAGMA #Diarrhea #Acute renal failure/ATN #Chronic hx of HTN, HLD, BPH, osteoarthritis, GERD Subjective: No overnight event. PAtient was eating breakfast when I entered. No specific complaint besides mildly decreased appetite. Had no more diarrhea since admitted upstairs. Urine output bag appeared to be more clear from last night. Review of Systems Constitutional: Reports: see HPI. Objective Last 24 Hrs of Vital Signs/I&O Vital Signs Date Time Temp Pulse Resp B/P B/P Pulse O2 O2 Flow FiO2 Mean Ox Delivery Rate 04/05 0718 97.3 82 20 116/58 96 04/04 2205 98.7 92 22 108/62 97 Room Air 04/04 1848 92 104/58 04/04 1600 98.1 92 18 104/58 97 Room Air 04/04 1555 98.0 82 20 108/51 99 Room Air 04/04 1440 98.4 88 20 98/50 99 Room Air 04/04 1253 100 108/60 04/04 1253 88 18 96/58 04/04 1210 84 20 82/50 15 1044 94/42 04/04 0915 94 18 96/56 Intake & Output 04/05 1600 04/05 0800 04/05 0000 Intake Total 1040 440 Output Total 200 Balance 840 440 Intake, IV 800 200 Intake, Oral 240 240 Number 1 1 Bowel Movements Output, Urine 200 Patient 110.677 kg Weight Weight Bed scale Measurement Method Physical Exam General Appearance: Alert, Oriented X3, Cooperative, No Acute Distress Cardiovascular: Regular Rate Lungs: Clear to Auscultation, Normal Air Movement Abdomen: Normal Bowel Sounds, Soft, No Tenderness Neurological: Normal Speech Extremities: No Edema, Normal Pulses Other Physical Findings: In [place], urine bag dark yellow without signs of hematuria Current Medications: Current Medications Sig/Stevie Start time Last Medication Dose Route Stop Time Status Admin Acetaminophen 650 MG Q6P PRN 04/04 1445 AC 04/04 PO 1849 Acetaminophen 1,000 MG Q6P PRN 04/04 1445 AC IV Atorvastatin Calcium 40 MG 1700 04/04 1700 DC PO Dextrose/Water 1,000 ML Q10H 04/05 0845 AC IV Fenofibrate 145 MG DAILY 04/05 1000 CAN PO Heparin Sodium 5,000 UNIT Q8 04/04 2200 AC 04/05 (Porcine) SC 0543 Oxycodone/ 2 TAB ONCE ONE 04/04 2030 DC 04/04 Acetaminophen PO 04/047 Sodium Chloride 1,000 ML Q10H 04/04 1545 DC 04/05 IV 04/05 1144 0327 Sodium Chloride 1,000 ML BOLUS ONE 04/04 1245 DC IV 04/04 1344 Sodium Chloride 1,000 ML BOLUS ONE 04/04 1245 DC 04/04 IV 04/04 1344 1507 Sodium Chloride 1,000 ML BOLUS ONE 04/04 1245 DC 04/04 IV 04/04 1344 1100 Sodium Chloride 1,000 ML BOLUS ONE 04/04 1245 DC 04/04 IV 04/04 1344 1250 Sodium Chloride 1,000 ML BOLUS ONE 04/04 1245 DC 04/04 IV 04/04 1344 0915 Tamsulosin HCl 0.4 MG DAILY 04/04 1607 AC PO Last 24 Hrs of Lab/Jian Results Last 24 Hrs of Labs/Mics: Laboratory Tests 04/05/17 0643: Anion Gap 23 H, Estimated GFR 3 L, BUN/Creatinine Ratio 6.5 L, Hemoglobin A1c Pending, CBC w Diff NO MAN DIFF REQ, RBC 4.26 L, MCV 82.8, MCH 28.4, MCHC 34.2, RDW 14.1, MPV 8.3, Gran % 54.0, Lymphocytes % 31.2, Monocytes % 13.2 H, Eosinophils % 1.1, Basophils % 0.5, Absolute Granulocytes 3.0, Absolute Lymphocytes 1.7, Absolute Monocytes 0.7 H, Absolute Eosinophils 0.1, Absolute Basophils 0 04/05/17 0105: Anion Gap 23 H, Estimated GFR 3 L, BUN/Creatinine Ratio 6.2 L, Phosphorus 8.2 H, Magnesium 2.1, Creatine Kinase 215 H 04/04/17 1830: Anion Gap 24 H, Estimated GFR 3 L, BUN/Creatinine Ratio 6.3 L, Serum Osmolality 317 H, Acetaminophen < 10.0 L, Serum Alcohol < 10.0 04/04/17 1745: Urinalysis HEAVY H, Urine Color BROWN H, Urine Clarity HAZY H, Urine pH 5.5, Ur Specific [place] >= 1.030, Urine Protein >=300 H, Urine Ketones NEG, Urine Nitrite NEG, Urine Bilirubin SMALL H, Urine Urobilinogen 0.2, Ur Leukocyte Esterase NEG, Ur Microscopic SEDIMENT EXAMINED, Urine RBC 5-10 H, Urine WBC 5- 10 H, Ur Epithelial Cells FEW, Urine Bacteria FEW H, Urine Hemoglobin MOD H, Urine Glucose NEG 04/04/17 1745: Urine Opiates Screen < 100.00, Methadone Screen < 40, Barbiturate Screen < 60, Ur Phencyclidine Scrn < 6.00, Amphetamines Screen < 100, U Benzodiazepines Scrn < 85, Urine Cocaine Screen < 50, Urine Cannabis Screen < 5.00, Urine Osmolality 321, Ur Random Creatinine 333.2, U Random Total Protein 419 H, Ur Random Sodium 56, Ur Random Potassium 25.7, Protein/Creatinin Ratio 1.2 H, Fraction Sodium Excret 1.8 H 04/04/17 1524: Lactic Acid Cancelled 04/04/17 1230: Lactic Acid 1.1 04/04/17 1224: Lactic Acid Cancelled 04/04/17 1037: Anion Gap 31 H, Estimated GFR 3 L, BUN/Creatinine Ratio 6.2 L, Glucose 100 H , Lactic Acid 2.8 H, Calcium 8.8, Total Bilirubin 0.4, AST 18, ALT 31, Alkaline Phosphatase 41, Troponin I 0.02, Total Protein 6.9, Albumin 4.0, Globulin 2.9, Albumin/Globulin Ratio 1.4, CBC w Diff NO MAN DIFF REQ, RBC 4.74, MCV 81.9, MCH 28.2, MCHC 34.4, RDW 13.6, MPV 8.6, Gran % 64.2, Lymphocytes % 22.8, Monocytes % 12.5 H, Eosinophils % 0.2, Basophils % 0.3, Absolute Granulocytes 4.2, Absolute Lymphocytes 1.5, Absolute Monocytes 0.8 H, Absolute Eosinophils 0, Absolute Basophils 0 Microbiology 04/05 347 STOOL: Cryptosporidium Antigen - RECD 04/05 347 STOOL: Giardia Antigen (JIAN) - RECD 04/05 347 STOOL: Clostridium difficile Toxin A & B - RECD 04/05 347 STOOL: Stool Culture - RECD Assessment/Plan Assessment: Mr. Morales is a 61-year-old male w/ PMH of HTN, HLD, GERD, presented to the emergency department with CC of multiple episodes of diarrhea and abdominal pain starting Thursday 03/30 after a eating out with family members. Patient started to have watery diarrhea the night after dinner on 03/30, and had been ongoing since then. Patient went to walkin clinic and was told to maintain hydration with Gatorade as he was diagnosed with viral syndrome. However, he felt the symptoms did not improve at all. He tried to eat a toast and scrambled egg on and could only finish part of the meal, and have to go to restroom repeatedly with watery diarrhea. Patient felt lightheaded and exertional dyspnea and presented to ER. Patient's lab on admission represented High AG Metabolic Acidosis with calculated serum OSM 285. Patient's persistent diarrhea would mostly cause a Non -AG metabolic acidosis, however patient's lactic acidosis/Starvational ketoacidosis (no keton lab yet), likely from dehydration, may still contribute to a clinical picture of HAGMA. Patient had no hx of using ASA, Tylenol for osteoarthritis, diabetes, and denied heavy use of alcohol as a social drinker. Patient would need further evaluation to confirm rule out above cause, and stablization of volume status. Patient denied much urine output after 5L of fluid and had no sensation of urgency on pressing of suprapubic area. Patient's Cr elevation to 14 could be a combined picture of CÉSAR from dehydration and ATN from hypotensive episodes. Problem list #HAGMA: due to combination of volume loss & CÉSAR - Will change to IV Isotonic Na/HCO3 125cc/hr per nephro - NaHCO3 1300mg BID - AG on admission 31 -> closed down to 23 on latest lab. - Continue BEP monitoring #Diarrhea - Patient denied more episodes of diarrhea since admission - Continue monitor. - Replete electrolytes as needed. #Acute renal failure/ATN - Cr on admission 14.9 -> 15.5 on latest lab. - Urine output improved to 200cc overnight with dark yellow - Ab CT showed no evidence of colitis/diverticulitis/obstructive uropathy. #Chronic hx of HTN, HLD, BPH, osteoarthritis, GERD - Hold PPI, lisinopril 2/2 patient's CÉSAR/ATN, will hold Fenofibrate & lipitor as well per Nephro 2/2 possible Rhabdomyolysis. - Continue Flomax DVT prophylaxis Heparin + ALPS Heart Healthy Diet Full Code Problem List: 1. Enteritis 2. Renal failure Pain Ratin Pain Location: NA Pain Goal: Remain pain free Pain Plan: see AP Tomorrow's Labs & Rationales: CBC/BEP Arian Henao 04/05/17 1244: Attending MD Review Statement Attending Statement Attending MD Statement: examined this patient, discuss w/resident/PA/ELECTRONICS MAINTENANCE TECHNICIAN, agreed w/resident/PA/ELECTRONICS MAINTENANCE TECHNICIAN, discussed with family, reviewed EMR data (avail), discussed with nursing, discussed with case mgmt, reviewed images, amended to note Attending Assessment/Plan: 61 o/m with pmh of htn comes with vomiting and profuse diarrhea. Patient found to have acute renal failure with high anion gap metabolic acidosis. Patient received 5l of NS fluids in ER. Patient was hypotensive on arrival to ER but responded to fluid challenge. labs and imaging results noted. Patient seen/examined bedside. C/o diarrhea x 3 overnight. Abd distended. Cr 15. Patient is being admitted to inpatient medical services for ARF possible IVVD possible ATN. Patient continue fluids, frequent bmp and Nephrology consulted. Add bicarb as per nephro. Avoid nephrotoxic agents. F/u labs as requested by nephrology. Check for c diff. Consider GI consult if no improvement with diarrhea. gi/dvt prophylaxis full code.
--- NOTE | 2017-04-05 10:14 | ULTRASOUND REPORT ---
EXAMINATION: US RETROPERITONEAL COMPLETE (RENAL) CLINICAL INFORMATION: Low urine output. Acute kidney injury. COMPARISON: None TECHNIQUE: Real-time imaging of the kidneys and bladder. FINDINGS: RIGHT KIDNEY: 12.2 x 5.6 cm (SAG x AP x TRV). The kidney is normal in size, contour, and echogenicity. Renal cortical thickness is normal. There is a 3.5 cm upper pole simple cyst. No calculi or solid parenchymal lesions. No hydronephrosis. LEFT KIDNEY: 8.7 x 4.9 x 5.3 cm (SAG x AP x TRV). The kidney is normal in size, contour, and echogenicity. Renal cortical thickness is normal. No calculi or focal parenchymal lesions. No hydronephrosis. BLADDER: Urinary bladder is empty. Neither ureteral jet demonstrated. Prevoid bladder volume is 11 mL. Postvoid the bladder is empty. The prostate is mildly enlarged, 4 cm in diameter. IMPRESSION: No hydronephrosis. No calculi seen. Mild prostatomegaly.
--- NOTE | 2017-04-05 13:54 | Discharge Summary ---
Visit Information Visit Dates Admission Date: 04/04/17 Hospital Course Course Attending Physician: Arian Henao MD Primary Care Physician: Ivan TORRES,Roberto Luna Hospital Course: Mr. Morales is a 61-year-old male w/ PMH of HTN, HLD, GERD, presented to the emergency department with CC of multiple episodes of diarrhea and abdominal pain starting Thursday 03/30 after a eating out with family members. Patient started to have watery diarrhea the night after dinner on 03/30, and had been ongoing since then. Patient went to walkin clinic and was told to maintain hydration with Gatorade as he was diagnosed with viral syndrome. However, he felt the symptoms did not improve at all. He tried to eat a toast and scrambled egg on and could only finish part of the meal, and have to go to restroom repeatedly with watery diarrhea. Patient felt lightheaded and exertional dyspnea and presented to ER. Patient's lab on admission represented High AG Metabolic Acidosis with calculated serum OSM 285. Patient's persistent diarrhea would mostly cause a Non -AG metabolic acidosis, however patient's lactic acidosis/Starvational ketoacidosis (no keton lab yet), likely from dehydration, may still contribute to a clinical picture of Hign Anion-gap metabolic acidosis (HAGMA). Patient had no hx of using ASA, Tylenol for osteoarthritis, diabetes, and denied heavy use of alcohol as a social drinker. Patient would need further evaluation to confirm rule out above cause, and stablization of volume status. Patient denied much urine output after 5L of fluid and had no sensation of urgency on pressing of suprapubic area. Patient's Cr elevation to 14 could be a combined picture of CÉSAR from dehydration and ATN from hypotensive episodes. Patient was admitted to the general medicine floor for the management of the following. #Hign Anion-gap metabolic acidosis: this was likely due to combination of volume loss & Acute kidney injuery. Patient was started on IV fluid hydration to replenish the volume status as well NaHCO3 tablets to compensate the acidosis. Patient's Anion gap on admission was 31, closed to 16 on 04/07 and had clinical improved in overall symptoms and lab as below #Gastroenteritis by Campylobacter. Patient had >5 bowel movements daily ever since admission however each time with less watery and more formed. Patient's stool grew Campylobacter, however as patient's hemodynamically stable, no bloody stool, and continuous clincial improvement, he was discharged once his creatinie leve returned to hari. Patient's diet was advanced to normal diet later #Acute renal failure/ATN - Cr on admission 14.9 -> 9.3 on latest lab. - repeat UA reviewed, on considerable cast - Ab CT showed no evidence of colitis/diverticulitis/obstructive uropathy. #Chronic hx of HTN, HLD, BPH, osteoarthritis, GERD - Hold PPI, lisinopril 2/2 patient's CÉSAR/ATN, will hold Fenofibrate & lipitor as well per Nephro 2/2 possible Rhabdomyolysis. - Continue Flomax DVT prophylaxis Heparin + ALPS Heart Healthy Diet Full Code Allergies: Coded Allergies: cimetidine (From [employer]) (UNKNOWN 04/04/17) Pertinent Lab Results: SERVICE DATE: 04/04/17-1218 EXAM TYPE: RAD - XRY-PORTABLE CHEST XRAY IMPRESSION: Minimal bibasilar opacities likely atelectasis No x-ray evidence for CHF SERVICE DATE: 04/04/17-1245 EXAM TYPE: CAT - CT ABD & PELVIS W/O IV CONTRAS IMPRESSION: No CT findings to explain left lower quadrant pain. No evidence of colitis or diverticulitis. No obstructive uropathy. Diffuse hepatic steatosis. SERVICE DATE: 04/04/17 EXAM TYPE: US - US-RENAL/KIDNEY IMPRESSION: No hydronephrosis. No calculi seen. Mild prostatomegaly. Disposition Summary Disposition Principal Diagnosis: #Acute renal failure/ATN #Gastroenteritis by Campylobacter #Chronic hx of HTN, HLD, BPH, osteoarthritis, GERD Additional Diagnosis: As above Discharge Disposition: home or self care Discharge Instructions General Discharge Information Code Status: Full Code Patient's Diet: Heart Healthy Patient's Activity: As tolerated Medications at Discharge Discharge Medications: Continue taking these medications: Tamsulosin HCl (Tamsulosin HCl) 0.4 MG CAP.ER.24H 1 Capsule ORAL DAILY Simvastatin (Simvastatin*) 40 MG TABLET 1 Tablet ORAL Every night Fenofibric Acid (Choline) (Fenofibric Acid) 135 MG CAPSULE.DR 1 Capsule ORAL DAILY Lisinopril (Lisinopril) 20 MG TABLET 1 Tablet ORAL DAILY Omeprazole (Omeprazole) 40 MG CAPSULE.DR 1 Capsule ORAL DAILY Copies To: Ivan TORRES,Roberto Luna
[2017-04-05 13:58] VITALS: BP 160/78
[2017-04-05 14:50] VITALS: BP 168/76
[2017-04-05 17:30] VITALS: BP 144/48
[2017-04-05 17:46] VITALS: BP 180/88
[2017-04-05 21:42] VITALS: BP 144/70
[2017-04-06 06:23] VITALS: BP 168/78
--- NOTE | 2017-04-06 09:19 | PN- Housestaff ---
Sammy Crow MD,[facility] 04/06/17 0919: Subjective Follow-up For: #HAGMA #Diarrhea #Acute renal failure/ATN #Chronic hx of HTN, HLD, BPH, osteoarthritis, GERD Subjective: Patient visited today, was lying in bed comfortably in no acute distress, was alert and oriented. Had one BM this morning, not loose. Complained of minimal abdominal discomfort. No fever or chills, no shortness of breathing, no chest pain, no other events. Will follow with nephrology regarding plan of care. Review of Systems Constitutional: Reports: see HPI. Objective Last 24 Hrs of Vital Signs/I&O Vital Signs Date Time Temp Pulse Resp B/P B/P Pulse O2 O2 Flow FiO2 Mean Ox Delivery Rate 04/06 1508 98.2 85 20 170/68 97 Room Air 04/06 0623 97.6 85 20 168/78 97 04/05 2142 98.4 88 20 144/70 99 Room Air 04/05 1823 88 180/88 04/05 1746 88 180/88 Intake & Output 04/06 1600 04/06 0800 04/06 0000 Intake Total 1325 1000 620 Output Total 1100 1500 1400 Balance 225 -500 -780 Intake, IV 1000 1000 500 Intake, Oral 325 120 Number 2 2 2 Bowel Movements Output, Urine 1100 1500 1400 Physical Exam General Appearance: Alert, Oriented X3, Cooperative, No Acute Distress Skin Temp/Moisture Exam: Warm/Dry HEENT: Atraumatic, EOMI, Mucous Membr. moist/pink Cardiovascular: Normal S1, Normal S2 Lungs: Clear to Auscultation Abdomen: No Tenderness Current Medications: Current Medications Sig/Stevie Start time Last Medication Dose Route Stop Time Status Admin Acetaminophen 650 MG .STK-MED ONE 04/05 214 DC PO 04/05 214 Acetaminophen 650 MG Q6P PRN 04/04 1445 AC 04/05 PO 2142 Acetaminophen 1,000 MG Q6P PRN 04/04 1445 AC IV Amlodipine Besylate 2.5 MG ONCE ONE 04/05 1815 DC 04/05 PO 04/05 181 1823 Calcium 600 MG ONCE ONE 04/05 2230 DC PO 04/05 2231 Calcium Carbonate 500 MG .STK-MED ONE 04/06 0542 DC PO 04/06 0543 Calcium/Vitamin D 1 TAB ONCE ONE 04/06 1000 DC 04/06 PO 04/06 1001 1143 Heparin Sodium 5,000 UNIT Q8 04/04 2200 AC 04/06 (Porcine) SC 1455 Sodium Bicarbonate 150 MEQ Q8H 04/06 0530 AC 04/06 Dextrose/Water 850 ML IV 1456 Sodium Bicarbonate 150 MEQ Q8H 04/05 0915 DC 04/05 Dextrose/Water 850 ML IV 2134 Tamsulosin HCl 0.4 MG DAILY 04/04 1607 AC 04/06 PO 1143 Last 24 Hrs of Lab/Jian Results Last 24 Hrs of Labs/Mics: Laboratory Tests 04/06/17 1500: Ur Random Creatinine 118.1, U Random Total Protein 52 H, Protein/Creatinin Ratio 0.4 H 04/06/17 1500: Urine Color YEL, Urine Clarity CLEAR, Urine pH 6.0, Ur Specific [place] 1.015, Urine Protein 30 H, Urine Ketones NEG, Urine Nitrite NEG, Urine Bilirubin NEG, Urine Urobilinogen 0.2, Ur Leukocyte Esterase TRACE H, Ur Microscopic SEDIMENT EXAMINED, Urine RBC 25-50 H, Urine WBC 1-3 H, Ur Epithelial Cells FEW, Urine Bacteria RARE H, Hyaline Casts RARE H, Urine Hemoglobin LARGE H, Urine Glucose NEG 04/06/17 0633: ELIANE Titer Pending, Anti-Nuclear Antibody Pending 04/06/17 0633: Anion Gap 21 H, Estimated GFR 4 L, BUN/Creatinine Ratio 7.9, ANCA Pending, Complement C3 Pending, Complement C4 Pending, Hep Bs Antigen NONREACTIVE, Hepatitis C Antibody NONREACTIVE 04/06/17 0500: Complement C3 Cancelled 04/06/17 0500: ELIANE Titer Cancelled, Anti-Nuclear Antibody Cancelled, Hepatitis C Antibody Cancelled Assessment/Plan Assessment: Mr. Morales is a 61-year-old male w/ PMH of HTN, HLD, GERD, presented to the emergency department with CC of multiple episodes of diarrhea and abdominal pain starting Thursday 03/30 after a eating out with family members. Patient started to have watery diarrhea the night after dinner on 03/30, and had been ongoing since then. Patient went to walkin clinic and was told to maintain hydration with Gatorade as he was diagnosed with viral syndrome. However, he felt the symptoms did not improve at all. He tried to eat a toast and scrambled egg on and could only finish part of the meal, and have to go to restroom repeatedly with watery diarrhea. Patient felt lightheaded and exertional dyspnea and presented to ER. Patient's lab on admission represented High AG Metabolic Acidosis with calculated serum OSM 285. Patient's persistent diarrhea would mostly cause a Non -AG metabolic acidosis, however patient's lactic acidosis/Starvational ketoacidosis (no keton lab yet), likely from dehydration, may still contribute to a clinical picture of HAGMA. Patient had no hx of using ASA, Tylenol for osteoarthritis, diabetes, and denied heavy use of alcohol as a social drinker. Patient would need further evaluation to confirm rule out above cause, and stablization of volume status. Patient denied much urine output after 5L of fluid and had no sensation of urgency on pressing of suprapubic area. Patient's Cr elevation to 14 could be a combined picture of CÉSAR from dehydration and ATN from hypotensive episodes. Problem list #HAGMA: due to combination of volume loss & CÉSAR RPGN also in DD. - Will change to IV Isotonic Na/HCO3 125cc/hr per nephro - NaHCO3 1300mg BID - AG on admission 31 -> closed down to 23 on latest lab. - Continue BEP monitoring #Diarrhea - Patient denied more episodes of diarrhea since admission - Continue monitor. - Replete electrolytes as needed. #Acute renal failure/ATN - Cr on admission 14.9 -> 13.3 on latest lab. - Urine output improved to 200cc overnight with dark yellow - repeat UA was sent - Ab CT showed no evidence of colitis/diverticulitis/obstructive uropathy. #Chronic hx of HTN, HLD, BPH, osteoarthritis, GERD - Hold PPI, lisinopril 2/2 patient's CÉSAR/ATN, will hold Fenofibrate & lipitor as well per Nephro 2/2 possible Rhabdomyolysis. - Continue Flomax DVT prophylaxis Heparin + ALPS Heart Healthy Diet Full Code Problem List: 1. Renal failure Pain Ratin Pain Location: None, minor abdominal discomfort Pain Goal: Pain 4 or less Pain Plan: NA Tomorrow's Labs & Rationales: CBC BEP EarleneArian matute 04/06/17 1118: Attending Review Statement Attending Statement Attending MD Statement: examined this patient, discuss w/resident/PA/ANIMAL HERDER, agreed w/resident/PA/ANIMAL HERDER, discussed with family, reviewed EMR data (avail), discussed with nursing, discussed with case mgmt, reviewed images, amended to note Attending Assessment/Plan: 61 o/m with pmh of htn comes with vomiting and profuse diarrhea. Patient found to have acute renal failure with high anion gap metabolic acidosis. Patient received 5l of NS fluids in ER. Patient was hypotensive on arrival to ER but responded to fluid challenge. labs and imaging results noted. Patient seen/examined bedside. C/o diarrhea x 2 overnight. Abd distended. Cr 13. Patient is being admitted to inpatient medical services for ARF possible IVVD possible ATN. Patient continue fluids, frequent bmp and Nephrology consulted. Added bicarb as per nephro. Avoid nephrotoxic agents. F/u labs as requested by nephrology. Check for c diff negative. Diarrhea with improvement. gi/dvt prophylaxis full code.
--- NOTE | 2017-04-06 14:25 | PN- Nephrology ---
Assessment/Plan Nephrology Assessment: CÉSAR - Almost certainly 2/2 ATN in the setting of volume depletion, hypotension while on RAAS inhibition + NSAID use. No gross uremic symptoms to warrant initiation of dialysis. Serologic work-up sent to be complete although suspicion low - all is still pending. Normal Hg on presentation suggests against progression of CKD. 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 Met acidosis - Lactate and ketones neg - likely 2/2 renal failure. Improving with bicarb supplementation. Suggestion: -Cont supportive treatment with sodium biarb containing IVF as you are -Switch to LR if bicarb >22 -Daily BMP -No indication for HD at this time -f/u serologies -Pt now knows to avoid NSAID's and to hold SHALOM-I if volume depleted Please call [phone] with ?'s Subjective Subjective: Pt reports eating/drinking OK No nausea, dysgeusia Energy level OK Still with some diarrhea Continues on IVF Cr in 13's Serologies pending US with L kidney 8.7cm and R kidney 12.2cm Objective Vital Signs and I&Os Vital Signs Date Time Temp Pulse Resp B/P B/P Pulse O2 O2 Flow FiO2 Mean Ox Delivery Rate 04/06 0623 97.6 85 20 168/78 97 04/05 2142 98.4 88 20 144/70 99 Room Air 04/05 1823 88 180/88 04/05 1746 88 180/88 04/05 1730 94 144/48 04/05 1450 88 168/76 Intake & Output 04/06 1600 04/06 0400 04/05 1600 04/05 0400 04/04 1600 04/04 0400 Intake Total 2325 620 2765 440 5000 Output Total 2600 1400 450 Balance -275 -780 2315 440 5000 Intake, IV 2000 500 5871 352 4575 Intake, Oral 425 871 2577 240 Number 3 3 4 1 Bowel Movements Output, Urine 2600 1400 450 Patient 244 lb 235 lb Weight Weight Bed scale Reported by Patient Measurement Method Physical Exam: Gen - Ok appearing HEENT - supple CV - RRR, no m/r/g Chest - clear, no w/r/r Abd - soft, NTND Ext - warm, no edema Neuro - AOX3, grossly nonfocal Current Medications: Current Medications Sig/Stevie Start time Last Medication Dose Route Stop Time Status Admin Acetaminophen 650 MG .STK-MED ONE 04/05 2141 DC PO 04/05 2142 Acetaminophen 650 MG Q6P PRN 04/04 1445 AC 04/05 PO 2142 Acetaminophen 1,000 MG Q6P PRN 04/04 1445 AC IV Amlodipine Besylate 2.5 MG ONCE ONE 04/05 1815 DC 04/05 PO 04/05 1816 1823 Calcium 600 MG ONCE ONE 04/05 2230 DC PO 04/05 2231 Calcium Carbonate 500 MG .STK-MED ONE 04/06 0542 DC PO 04/06 0543 Calcium/Vitamin D 1 TAB ONCE ONE 04/06 1000 DC 04/06 PO 04/06 1001 1143 Heparin Sodium 5,000 UNIT Q8 04/04 2200 AC 04/06 (Porcine) SC 0552 Sodium Bicarbonate 150 MEQ Q8H 04/06 0530 AC 04/06 Dextrose/Water 850 ML IV 0552 Sodium Bicarbonate 150 MEQ Q8H 04/05 0915 DC 04/05 Dextrose/Water 850 ML IV 2134 Tamsulosin HCl 0.4 MG DAILY 04/04 1607 AC 04/06 PO 1143 Results Pertinent Lab Results: Laboratory Tests 04/06 04/06 04/06 04/06 0633 0633 0500 0500 Chemistry Sodium (137 - 145 mmol/L) 140 Potassium (3.5 - 5.1 mmol/L) 3.9 Chloride (98 - 107 mmol/L) 102 Carbon Dioxide (22 - 30 mmol/L) 17 L Anion Gap (5 - 16) 21 H BUN (9 - 20 mg/dL) 105 *H Creatinine (0.7 - 1.2 mg/dL) 13.3 *H Estimated GFR (>60 ml/min) 4 L BUN/Creatinine Ratio (7 - 25 %) 7.9 Immunology ELIANE Titer Pending Cancelled Anti-Nuclear Antibody Pending Cancelled ANCA Pending Complement C3 Pending Cancelled Complement C4 Pending Serology Hep Bs Antigen (NONREACTIVE) NONREACTIVE Hepatitis C Antibody (NONREACTIVE) NONREACTIVE Cancelled 04/05 04/05 04/04 0643 0105 1830 Chemistry Sodium (137 - 145 mmol/L) 139 140 137 Potassium (3.5 - 5.1 mmol/L) 4.5 4.5 4.6 Chloride (98 - 107 mmol/L) 107 107 103 Carbon Dioxide (22 - 30 mmol/L) 9 *L 10 L 10 L Anion Gap (5 - 16) 23 H 23 H 24 H BUN (9 - 20 mg/dL) 100 H 97 H 97 H Creatinine (0.7 - 1.2 mg/dL) 15.5 *H 15.6 *H 15.3 *H Estimated GFR (>60 ml/min) 3 L 3 L 3 L BUN/Creatinine Ratio (7 - 25 %) 6.5 L 6.2 L 6.3 L Hemoglobin A1c (4.2 - 5.8 %) 6.3 H Serum Osmolality (285 - 295 MOSM/KG) 317 H Phosphorus (2.5 - 4.5 mg/dL) 8.2 H Magnesium (1.6 - 2.3 mg/dL) 2.1 Creatine Kinase (55 - 170 U/L) 215 H Hematology CBC w Diff NO MAN DIFF REQ WBC (4.8 - 10.8 /CUMM) 5.6 RBC (4.70 - 6.10 /CUMM) 4.26 L Hgb (14.0 - 18.0 G/DL) 12.1 L Hct (42 - 52 %) 35.3 L MCV (80.0 - 94.0 FL) 82.8 MCH (27.0 - 31.0 PG) 28.4 MCHC (33.0 - 37.0 G/DL) 34.2 RDW (11.5 - 14.5 %) 14.1 Plt Count (130 - 400 /CUMM) 209 MPV (7.4 - 10.4 FL) 8.3 Gran % (42.2 - 75.2 %) 54.0 Lymphocytes % (20.5 - 51.1 %) 31.2 Monocytes % (1.7 - 9.3 %) 13.2 H Eosinophils % (0 - 5 %) 1.1 Basophils % (0.0 - 2.0 %) 0.5 Absolute Granulocytes (1.4 - 6.5 /CUMM) 3.0 Absolute Lymphocytes (1.2 - 3.4 /CUMM) 1.7 Absolute Monocytes (0.10 - 0.60 /CUMM) 0.7 H Absolute Eosinophils (0.0 - 0.7 /CUMM) 0.1 Absolute Basophils (0.0 - 0.2 /CUMM) 0 Toxicology Acetaminophen (10.0 - 30.0 ug/mL) < 10.0 L Serum Alcohol (<10 MG/DL) < 10.0 04/04 04/04 04/04 1745 1745 1524 Chemistry Lactic Acid Cancelled Toxicology Urine Opiates Screen (>2000 NG/ML) < 100.00 Methadone Screen (>300 NG/ML) < 40 Barbiturate Screen (>200 NG/ML) < 60 Ur Phencyclidine Scrn (>25 NG/ML) < 6.00 Amphetamines Screen (>1000 NG/ML) < 100 U Benzodiazepines Scrn (>200 NG/ML) < 85 Urine Cocaine Screen (>300 NG/ML) < 50 Urine Cannabis Screen (>50 NG/ML) < 5.00 Urines Urinalysis HEAVY H Urine Color (YEL,AMB,STR) BROWN H Urine Clarity (CLEAR) HAZY H Urine pH (5.0 - 8.0) 5.5 Ur Specific [place] (1.001 - 1.035) >= 1.030 Urine Protein (NEG,<30 MG/DL) >=300 H Urine Ketones (NEG) NEG Urine Nitrite (NEG) NEG Urine Bilirubin (NEG) SMALL H Urine Urobilinogen (0.1 - 1.0 EU/dl) 0.2 Ur Leukocyte Esterase (NEG) NEG Ur Microscopic SEDIMENT EXAMINED Urine RBC (0 - 5 /HPF) 5-10 H Urine WBC (0 - 2 /HPF) 5-10 H Ur Epithelial Cells (NONE,FEW) FEW Urine Bacteria (NEG/NONE) FEW H Urine Hemoglobin (NEG) MOD H Urine Osmolality (300 - 1000 MOSM/KG) 321 Ur Random Creatinine (mg/dL) 333.2 U Random Total Protein (0 - 12 mg/dL) 419 H Ur Random Sodium (30 - 90 mmol/L) 56 Ur Random Potassium (mmol/L) 25.7 Protein/Creatinin Ratio (< 0.2) 1.2 H Fraction Sodium Excret (<1% %) 1.8 H Urine Glucose (N MG/DL) NEG 04/04 04/04 04/04 1230 1224 1037 Chemistry Sodium (137 - 145 mmol/L) 141 Potassium (3.5 - 5.1 mmol/L) 5.5 H Chloride (98 - 107 mmol/L) 103 Carbon Dioxide (22 - 30 mmol/L) 7 *L Anion Gap (5 - 16) 31 H BUN (9 - 20 mg/dL) 93 H Creatinine (0.7 - 1.2 mg/dL) 14.9 *H Estimated GFR (>60 ml/min) 3 L BUN/Creatinine Ratio (7 - 25 %) 6.2 L Glucose (65 - 99 mg/dL) 100 H Lactic Acid (0.7 - 2.1 mmol/L) 1.1 Cancelled 2.8 H Calcium (8.4 - 10.2 mg/dL) 8.8 Total Bilirubin (0.2 - 1.3 mg/dL) 0.4 AST (17 - 59 U/L) 18 ALT (21 - 72 U/L) 31 Alkaline Phosphatase (< 127 U/L) 41 Troponin I (<0.11 ng/ml) 0.02 Total Protein (6.3 - 8.2 g/dL) 6.9 Albumin (3.5 - 5.0 g/dL) 4.0 Globulin (1.9 - 4.2 gm/dL) 2.9 Albumin/Globulin Ratio (1.1 - 2.2 %) 1.4 Hematology CBC w Diff NO MAN DIFF REQ WBC (4.8 - 10.8 /CUMM) 6.5 RBC (4.70 - 6.10 /CUMM) 4.74 Hgb (14.0 - 18.0 G/DL) 13.3 L Hct (42 - 52 %) 38.8 L MCV (80.0 - 94.0 FL) 81.9 MCH (27.0 - 31.0 PG) 28.2 MCHC (33.0 - 37.0 G/DL) 34.4 RDW (11.5 - 14.5 %) 13.6 Plt Count (130 - 400 /CUMM) 222 MPV (7.4 - 10.4 FL) 8.6 Gran % (42.2 - 75.2 %) 64.2 Lymphocytes % (20.5 - 51.1 %) 22.8 Monocytes % (1.7 - 9.3 %) 12.5 H Eosinophils % (0 - 5 %) 0.2 Basophils % (0.0 - 2.0 %) 0.3 Absolute Granulocytes (1.4 - 6.5 /CUMM) 4.2 Absolute Lymphocytes (1.2 - 3.4 /CUMM) 1.5 Absolute Monocytes (0.10 - 0.60 /CUMM) 0.8 H Absolute Eosinophils (0.0 - 0.7 /CUMM) 0 Absolute Basophils (0.0 - 0.2 /CUMM) 0 Imaging/Other Studies: EXAM TYPE: US - US-RENAL/KIDNEY EXAMINATION: US RETROPERITONEAL COMPLETE (RENAL) CLINICAL INFORMATION: Low urine output. Acute kidney injury. COMPARISON: None TECHNIQUE: Real-time imaging of the kidneys and bladder. FINDINGS: RIGHT KIDNEY: 12.2 x 5.6 cm (SAG x AP x TRV). The kidney is normal in size, contour, and echogenicity. Renal cortical thickness is normal. There is a 3.5 cm upper pole simple cyst. No calculi or solid parenchymal lesions. No hydronephrosis. LEFT KIDNEY: 8.7 x 4.9 x 5.3 cm (SAG x AP x TRV). The kidney is normal in size, contour, and echogenicity. Renal cortical thickness is normal. No calculi or focal parenchymal lesions. No hydronephrosis. BLADDER: Urinary bladder is empty. Neither ureteral jet demonstrated. Prevoid bladder volume is 11 mL. Postvoid the bladder is empty. The prostate is mildly enlarged, 4 cm in diameter. IMPRESSION: No hydronephrosis. No calculi seen. Mild prostatomegaly.
[2017-04-06 15:08] VITALS: BP 170/68
[2017-04-06 21:44] VITALS: BP 158/60
[2017-04-07 06:59] VITALS: BP 146/62
[2017-04-07 08:01] LABS: ABSOLUTE BASOPHIL COUNT 0 /CUMM (0.0-0.2); ABSOLUTE EOSINOPHIL COUNT 0.2 /CUMM (0.0-0.7); ABSOLUTE GRANULOCYTE CT 3.6 /CUMM (1.4-6.5); ABSOLUTE LYMPH COUNT 1.4 /CUMM (1.2-3.4); ABSOLUTE MONOCYTE COUNT 0.6 /CUMM (0.10-0.60); BASOPHIL % 0.5 % (0.0-2.0); GRANULOCYTE % 61.5 % (42.2-75.2); HEMATOCRIT 33.1 % (42-52); MEAN CORPUSCULAR HGB CONC 34.2 G/DL (33.0-37.0); MEAN PLATELET VOLUME 8.1 FL (7.4-10.4); PLATELET COUNT 241 /CUMM (130-400); RBC DISTRIBUTION WIDTH 14.1 % (11.5-14.5); RED BLOOD CELL CT 4.04 /CUMM (4.70-6.10); WHITE BLOOD CELL COUNT 5.8 /CUMM (4.8-10.8)
--- NOTE | 2017-04-07 09:27 | PN- Housestaff ---
Sammy Crow MD,[facility] 04/07/17 0927: Subjective Follow-up For: #HAGMA #Diarrhea #Acute renal failure/ATN #Chronic hx of HTN, HLD, BPH, osteoarthritis, GERD Subjective: Patient visited today, was lying in bed comfortably in no acute distress, was alert and oriented. Comaplined of miminal abdominal discomfort. No fever or chills, no shortness of breathing, no chest pain, no other events. Fluids were changed according to nephro recommendation. Review of Systems Constitutional: Reports: see HPI. Objective Last 24 Hrs of Vital Signs/I&O Vital Signs Date Time Temp Pulse Resp B/P B/P Pulse O2 O2 Flow FiO2 Mean Ox Delivery Rate 04/07 0659 98.3 78 20 146/62 94 04/06 2144 98.2 93 20 158/60 97 04/06 1508 98.2 85 20 170/68 97 Room Air Intake & Output 04/07 1600 04/07 0800 04/07 0000 Intake Total 1120 620 Output Total 300 700 600 Balance -300 420 20 Intake, IV 1000 500 Intake, Oral 120 120 Number 3 3 Bowel Movements Output, Urine 300 700 600 Physical Exam General Appearance: Alert, Oriented X3, Cooperative, No Acute Distress Skin: No Significant Lesion Skin Temp/Moisture Exam: Warm/Dry Sepsis Skin Exam (color): Normal for Ethnicity HEENT: Atraumatic, EOMI, Mucous Membr. moist/pink Cardiovascular: Normal S1, Normal S2 Lungs: Clear to Auscultation, Normal Air Movement Abdomen: No Tenderness, relatively distanded Neurological: grossly normal, no change compared to yesterday Extremities: No Edema Current Medications: Current Medications Sig/Stevie Start time Last Medication Dose Route Stop Time Status Admin Acetaminophen 650 MG .STK-MED ONE 04/06 1924 DC PO 04/06 192 Acetaminophen 650 MG Q6P PRN 04/04 1445 AC 04/06 PO 192 Acetaminophen 1,000 MG Q6P PRN 04/04 1445 AC IV Heparin Sodium 5,000 UNIT Q8 04/04 2200 AC 04/07 (Porcine) SC 0425 Lactated Ringer's 1,000 ML Q8H 04/07 1130 AC IV Sodium Bicarbonate 150 MEQ Q8H 04/06 0530 DC 04/07 Dextrose/Water 850 ML IV 0421 Tamsulosin HCl 0.4 MG DAILY 04/04 1607 AC 04/07 PO 1006 Last 24 Hrs of Lab/Jian Results Last 24 Hrs of Labs/Mics: Laboratory Tests 04/07/17 0656: Anion Gap 16, Estimated GFR 6 L, BUN/Creatinine Ratio 10.4, CBC w Diff NO MAN DIFF REQ, RBC 4.04 L, MCV 82.0, MCH 28.0, MCHC 34.2, RDW 14.1, MPV 8.1, Gran % 61.5, Lymphocytes % 24.7, Monocytes % 10.3 H, Eosinophils % 3.0, Basophils % 0.5, Absolute Granulocytes 3.6, Absolute Lymphocytes 1.4, Absolute Monocytes 0.6 , Absolute Eosinophils 0.2, Absolute Basophils 0 04/06/17 1500: Ur Random Creatinine 118.1, U Random Total Protein 52 H, Protein/Creatinin Ratio 0.4 H 04/06/17 1500: Urine Color YEL, Urine Clarity CLEAR, Urine pH 6.0, Ur Specific [place] 1.015, Urine Protein 30 H, Urine Ketones NEG, Urine Nitrite NEG, Urine Bilirubin NEG, Urine Urobilinogen 0.2, Ur Leukocyte Esterase TRACE H, Ur Microscopic SEDIMENT EXAMINED, Urine RBC 25-50 H, Urine WBC 1-3 H, Ur Epithelial Cells FEW, Urine Bacteria RARE H, Hyaline Casts RARE H, Urine Hemoglobin LARGE H, Urine Glucose NEG Assessment/Plan Assessment: Mr. Morales is a 61-year-old male w/ PMH of HTN, HLD, GERD, presented to the emergency department with CC of multiple episodes of diarrhea and abdominal pain starting Thursday 03/30 after a eating out with family members. Patient started to have watery diarrhea the night after dinner on 03/30, and had been ongoing since then. Patient went to walkin clinic and was told to maintain hydration with Gatorade as he was diagnosed with viral syndrome. However, he felt the symptoms did not improve at all. He tried to eat a toast and scrambled egg on and could only finish part of the meal, and have to go to restroom repeatedly with watery diarrhea. Patient felt lightheaded and exertional dyspnea and presented to ER. Patient's lab on admission represented High AG Metabolic Acidosis with calculated serum OSM 285. Patient's persistent diarrhea would mostly cause a Non -AG metabolic acidosis, however patient's lactic acidosis/Starvational ketoacidosis (no [place] lab yet), likely from dehydration, may still contribute to a clinical picture of HAGMA. Patient had no hx of using ASA, Tylenol for osteoarthritis, diabetes, and denied heavy use of alcohol as a social drinker. Patient would need further evaluation to confirm rule out above cause, and stablization of volume status. Patient denied much urine output after 5L of fluid and had no sensation of urgency on pressing of suprapubic area. Patient's Cr elevation to 14 could be a combined picture of CÉSAR from dehydration and ATN from hypotensive episodes. Problem list #HAGMA: due to combination of volume loss & CÉSAR RPGN also in DD. - Changed fluid to RL considering bicarb level - AG on admission 31 -> resolved - Continue BEP monitoring #Diarrhea - Patient denied more episodes of diarrhea since admission - Continue monitor. - Replete electrolytes as needed. #Acute renal failure/ATN - Cr on admission 14.9 -> 9.3 on latest lab. - repeat UA reviewed, on considerable cast - Ab CT showed no evidence of colitis/diverticulitis/obstructive uropathy. #Chronic hx of HTN, HLD, BPH, osteoarthritis, GERD - Hold PPI, lisinopril 2/2 patient's CÉSAR/ATN, will hold Fenofibrate & lipitor as well per Nephro 2/2 possible Rhabdomyolysis. - Continue Flomax DVT prophylaxis Heparin + ALPS Heart Healthy Diet Full Code Problem List: 1. 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 Patient found to have acute renal failure with high anion gap metabolic acidosis. Patient received 5l of NS fluids in ER. Patient was hypotensive on arrival to ER but responded to fluid challenge. labs and imaging results noted. Patient seen/examined bedside. C/o diarrhea x 2 epsiodes. Cr 9.5 Patient is being admitted to inpatient medical services for ARF possible IVVD possible ATN. Patient continue fluids, frequent bmp and Nephrology f/u. Avoid nephrotoxic agents. F/u labs as requested by nephrology. c diff negative. Diarrhea with improvement. gi/dvt prophylaxis full code.
[2017-04-07 14:16] VITALS: BP 164/70
[2017-04-07 22:01] VITALS: BP 140/76
[2017-04-08 06:55] VITALS: BP 148/68
--- NOTE | 2017-04-08 07:46 | PN- Housestaff ---
See Addendum Subjective Follow-up For: #Acute renal failure/ATN #Diarrhea #Chronic hx of HTN, HLD, BPH, osteoarthritis, GERD Subjective: No overnight event. Patient offered no complaint except gasy and would like better foods. Patient stated that his stool became more solid now and not watery any more. Review of Systems Constitutional: Reports: see HPI. Objective Last 24 Hrs of Vital Signs/I&O Vital Signs Date Time Temp Pulse Resp B/P B/P Pulse O2 O2 Flow FiO2 Mean Ox Delivery Rate 04/08 0655 97.7 77 20 148/68 91 04/07 2201 98.8 76 20 140/76 92 Room Air 04/07 1416 98.2 82 20 164/70 96 Room Air Intake & Output 04/08 0800 04/08 0000 04/07 1600 Intake Total 5556 330 5391 Output Total 550 750 301 Balance 650 -30 1299 Intake, IV 1000 1000 Intake, Oral 200 720 600 Number 2 2 3 Bowel Movements Output, Stool 1 Output, Urine 550 750 300 Physical Exam General Appearance: Alert, Oriented X3, Cooperative, No Acute Distress Cardiovascular: Regular Rate Lungs: Clear to Auscultation, Normal Air Movement Abdomen: Normal Bowel Sounds, Soft, No Tenderness Neurological: Normal Speech Extremities: No Edema, Normal Pulses Current Medications: Current Medications Sig/Stevie Start time Last Medication Dose Route Stop Time Status Admin Acetaminophen 650 MG .STK-MED ONE 04/07 2143 DC PO 04/07 2144 Acetaminophen 650 MG Q6P PRN 04/04 1445 AC 04/07 PO 2145 Acetaminophen 1,000 MG Q6P PRN 04/04 1445 AC IV Heparin Sodium 5,000 UNIT Q8 04/04 2200 AC 04/08 (Porcine) SC 0553 Lactated Ringer's 1,000 ML Q8H 04/07 1130 AC 04/08 IV 0554 Sodium Bicarbonate 150 MEQ Q8H 04/06 0530 DC 04/07 Dextrose/Water 850 ML IV 0421 Tamsulosin HCl 0.4 MG DAILY 04/04 1607 AC 04/07 PO 1006 Last 24 Hrs of Lab/Jian Results Last 24 Hrs of Labs/Mics: Laboratory Tests 04/08/17 0653: Sodium Pending, Potassium Pending, Chloride Pending, Carbon Dioxide Pending, Anion Gap Pending, BUN Pending, Creatinine Pending, BUN/Creatinine Ratio Pending , CBC w Diff Pending, WBC Pending, RBC Pending, Hgb Pending, Hct Pending, MCV Pending, MCH Pending, MCHC Pending, RDW Pending, Plt Count Pending, MPV Pending Assessment/Plan Assessment: Mr. Morales is a 61-year-old male w/ PMH of HTN, HLD, GERD, presented to the emergency department with CC of multiple episodes of diarrhea and abdominal pain starting Thursday 03/30 after a eating out with family members. Patient started to have watery diarrhea the night after dinner on 03/30, and had been ongoing since then. Patient went to walkin clinic and was told to maintain hydration with Gatorade as he was diagnosed with viral syndrome. However, he felt the symptoms did not improve at all. He tried to eat a toast and scrambled egg on and could only finish part of the meal, and have to go to restroom repeatedly with watery diarrhea. Patient felt lightheaded and exertional dyspnea and presented to ER. Patient's lab on admission represented High AG Metabolic Acidosis with calculated serum OSM 285. Patient's persistent diarrhea would mostly cause a Non -AG metabolic acidosis, however patient's lactic acidosis/Starvational ketoacidosis (no [place] lab yet), likely from dehydration, may still contribute to a clinical picture of HAGMA. Patient had no hx of using ASA, Tylenol for osteoarthritis, diabetes, and denied heavy use of alcohol as a social drinker. Patient would need further evaluation to confirm rule out above cause, and stablization of volume status. Patient denied much urine output after 5L of fluid and had no sensation of urgency on pressing of suprapubic area. Patient's Cr elevation to 14 could be a combined picture of CÉSAR from dehydration and ATN from hypotensive episodes. Problem list #HAGMA: due to combination of volume loss & CÉSAR, resolving - Changed fluid to Lactated Ringer 1L q8 - AG on admission 31 -> resolved - Continue BEP monitoring #Diarrhea - Patient still had >5 BMs daily over the weekend. However, he claimed that his stool became solid now. - Continue monitor. - Replete electrolytes as needed. - Advance diet as needed. #Acute renal failure/ATN - Cr on admission 14.9 -> 9.3 on latest lab. - repeat UA reviewed, on considerable cast - Ab CT showed no evidence of colitis/diverticulitis/obstructive uropathy. #Chronic hx of HTN, HLD, BPH, osteoarthritis, GERD - Hold PPI, lisinopril 2/2 patient's CÉSAR/ATN, will hold Fenofibrate & lipitor as well per Nephro 2/2 possible Rhabdomyolysis. - Continue Flomax DVT prophylaxis Heparin + ALPS Heart Healthy Diet Full Code Problem List: 1. Enteritis 2. Renal failure Pain Ratin Pain Location: NA Pain Goal: Remain pain free Pain Plan: see AP Tomorrow's Labs & Rationales: BEP
[2017-04-08 08:32] LABS: ABSOLUTE BASOPHIL COUNT 0 /CUMM (0.0-0.2); ABSOLUTE EOSINOPHIL COUNT 0.3 /CUMM (0.0-0.7); ABSOLUTE GRANULOCYTE CT 3.7 /CUMM (1.4-6.5); ABSOLUTE LYMPH COUNT 1.7 /CUMM (1.2-3.4); ABSOLUTE MONOCYTE COUNT 0.6 /CUMM (0.10-0.60); BASOPHIL % 0.3 % (0.0-2.0); EOSINOPHIL % 4.2 % (0-5); GRANULOCYTE % 58.8 % (42.2-75.2); HEMATOCRIT 31.5 % (42-52); MEAN CORPUSCULAR HGB 28.4 PG (27.0-31.0); MEAN CORPUSCULAR HGB CONC 34.3 G/DL (33.0-37.0); MEAN CORPUSCULAR VOLUME 82.7 FL (80.0-94.0); MEAN PLATELET VOLUME 8.5 FL (7.4-10.4); PLATELET COUNT 242 /CUMM (130-400); RBC DISTRIBUTION WIDTH 14.2 % (11.5-14.5); RED BLOOD CELL CT 3.82 /CUMM (4.70-6.10); WHITE BLOOD CELL COUNT 6.2 /CUMM (4.8-10.8)
--- NOTE | 2017-04-08 09:50 | PN- Nephrology ---
Assessment/Plan Nephrology Assessment: 1. CÉSAR: improving prob ATN post hypotenson in face of NSAIDs & RAAS interrution; no renal replacement need 2. 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 due to HTN ? due to chronic GN; serolgic w/u pending but doubt will be revealing 3. Met Acid: resolved Suggestion: 1. change IV D5 / NS 125 ml hr 2. rcheck Ca, phs, Mg 3. recheck renal function in AM Subjective Subjective: N uremic sx Diarrhea impoved No SOB Nonoligurric Objective Vital Signs and I&Os Vital Signs Date Time Temp Pulse Resp B/P B/P Pulse O2 O2 Flow FiO2 Mean Ox Delivery Rate 04/08 0655 97.7 77 20 148/68 91 04/07 220 98.8 76 20 140/76 92 Room Air 04/07 1416 98.2 82 20 164/70 96 Room Air Intake & Output 04/08 1600 04/08 0400 04/07 1600 04/07 0400 04/06 1600 04/06 0400 Intake Total 8198 088 0847 620 2325 620 Output Total 842 407 2103 600 2600 1400 Balance 650 -30 1719 20 -275 -780 Intake, IV 1000 2000 500 2000 500 Intake, Oral 200 720 720 120 325 120 Number 2 2 6 3 3 3 Bowel Movements Output, Stool 1 Output, Urine 828 966 0738 600 2600 1400 Physical Exam General Appearance: no apparent distress, alert, awake Head: atraumatic, normal appearance Neck: normal inspection Respiratory: normal breath sounds, no respiratory distress, quiet respiration, lungs clear Cardiovascular: regular rate/rhythm, friction rub (none) Abdomen: soft, non-tender, no organomegaly Extremities: no edema Neurologic/Psychiatric: no motor/sensory deficits, awake, alert, oriented x 3 Skin: intact, normal color, warm/dry Current Medications: Current Medications Sig/Stevie Start time Last Medication Dose Route Stop Time Status Admin Acetaminophen 650 MG .STK-MED ONE 04/07 2142 DC PO 04/07 2143 Acetaminophen 650 MG Q6P PRN 04/04 1445 AC 04/07 PO 2145 Acetaminophen 1,000 MG Q6P PRN 04/04 1445 AC IV Heparin Sodium 5,000 UNIT Q8 04/04 2200 AC 04/08 (Porcine) SC 0553 Lactated Ringer's 1,000 ML Q8H 04/07 1130 AC 04/08 IV 0554 Sodium Bicarbonate 150 MEQ Q8H 04/06 0530 DC 04/07 Dextrose/Water 850 ML IV 0421 Tamsulosin HCl 0.4 MG DAILY 04/04 1607 AC 04/07 PO 1006 Results Pertinent Lab Results: Laboratory Tests 04/08 04/07 0653 0656 Chemistry Sodium (137 - 145 mmol/L) 144 142 Potassium (3.5 - 5.1 mmol/L) 3.9 3.5 Chloride (98 - 107 mmol/L) 101 97 L Carbon Dioxide (22 - 30 mmol/L) 30 29 Anion Gap (5 - 16) 13 16 BUN (9 - 20 mg/dL) 79 H 97 H Creatinine (0.7 - 1.2 mg/dL) 6.3 *H 9.3 *H Estimated GFR (>60 ml/min) 9 L 6 L BUN/Creatinine Ratio (7 - 25 %) 12.5 10.4 Hematology CBC w Diff NO MAN DIFF REQ NO MAN DIFF REQ WBC (4.8 - 10.8 /CUMM) 6.2 5.8 RBC (4.70 - 6.10 /CUMM) 3.82 L 4.04 L Hgb (14.0 - 18.0 G/DL) 10.8 L 11.3 L Hct (42 - 52 %) 31.5 L 33.1 L MCV (80.0 - 94.0 FL) 82.7 82.0 MCH (27.0 - 31.0 PG) 28.4 28.0 MCHC (33.0 - 37.0 G/DL) 34.3 34.2 RDW (11.5 - 14.5 %) 14.2 14.1 Plt Count (130 - 400 /CUMM) 242 241 MPV (7.4 - 10.4 FL) 8.5 8.1 Gran % (42.2 - 75.2 %) 58.8 61.5 Lymphocytes % (20.5 - 51.1 %) 27.2 24.7 Monocytes % (1.7 - 9.3 %) 9.5 H 10.3 H Eosinophils % (0 - 5 %) 4.2 3.0 Basophils % (0.0 - 2.0 %) 0.3 0.5 Absolute Granulocytes (1.4 - 6.5 /CUMM) 3.7 3.6 Absolute Lymphocytes (1.2 - 3.4 /CUMM) 1.7 1.4 Absolute Monocytes (0.10 - 0.60 /CUMM) 0.6 0.6 Absolute Eosinophils (0.0 - 0.7 /CUMM) 0.3 0.2 Absolute Basophils (0.0 - 0.2 /CUMM) 0 0 04/06 04/06 04/06 1500 1500 0633 Immunology ELIANE Titer Pending Anti-Nuclear Antibody Pending Urines Urine Color (YEL,AMB,STR) YEL Urine Clarity (CLEAR) CLEAR Urine pH (5.0 - 8.0) 6.0 Ur Specific [place] (1.001 - 1.035) 1.015 Urine Protein (NEG,<30 MG/DL) 30 H Urine Ketones (NEG) NEG Urine Nitrite (NEG) NEG Urine Bilirubin (NEG) NEG Urine Urobilinogen (0.1 - 1.0 EU/dl) 0.2 Ur Leukocyte Esterase (NEG) TRACE H Ur Microscopic SEDIMENT EXAMINED Urine RBC (0 - 5 /HPF) 25-50 H Urine WBC (0 - 2 /HPF) 1-3 H Ur Epithelial Cells (NONE,FEW) FEW Urine Bacteria (NEG/NONE) RARE H Hyaline Casts (0/LPF) RARE H Urine Hemoglobin (NEG) LARGE H Ur Random Creatinine (mg/dL) 118.1 U Random Total Protein (0 - 12 mg/dL) 52 H Protein/Creatinin Ratio (< 0.2) 0.4 H Urine Glucose (N MG/DL) NEG 04/06 04/06 04/06 0633 0500 0500 Chemistry Sodium (137 - 145 mmol/L) 140 Potassium (3.5 - 5.1 mmol/L) 3.9 Chloride (98 - 107 mmol/L) 102 Carbon Dioxide (22 - 30 mmol/L) 17 L Anion Gap (5 - 16) 21 H BUN (9 - 20 mg/dL) 105 *H Creatinine (0.7 - 1.2 mg/dL) 13.3 *H Estimated GFR (>60 ml/min) 4 L BUN/Creatinine Ratio (7 - 25 %) 7.9 Immunology ELIANE Titer Cancelled Anti-Nuclear Antibody Cancelled ANCA Pending Complement C3 Pending Cancelled Complement C4 Pending Serology Hep Bs Antigen (NONREACTIVE) NONREACTIVE Hepatitis C Antibody (NONREACTIVE) NONREACTIVE Cancelled
--- NOTE | 2017-04-08 14:18 | Patient Discharge Instructions ---
Discharge Instructions General Discharge Information You were seen/treated for: Hypertension BPH Acute renal failure/ATN Diarrhea You had these procedures: Osorio placed Watch for these problems: Chest pain, shortness of breath, abdominal pain, pain or difficulty urinating, fever Special Instructions: 1. Please follow up with your primary care physician within 1-2 week of discharge. Inform your primary care physician of this admission to [facility]. 2. Please note the medication changes that have been made. 3. You will need to take an appointment with Dr. Tidwell for prostate surgery, as soon as possible. 4.We are giving you a prescription to check your kidney function within a week of discharge and talk to your PCP. Diet Continue normal diet: Yes Recommended Diet: Heart Healthy Activity Full Activity/No Limits: No Activity Self Limited: Yes Acute Coronary Syndrome Inclusion Criteria At DC or during hospital stay patient has or had the following: ACS DIAGNOSIS No Discharge Core Measures Meds if any: Prescribed or Continued at Discharge Meds if any: NOT Prescribed or Continued at Discharge Congestive Heart Failure Inclusion Criteria At DC or during hospital stay patient has or had the following: CHF DIAGNOSIS No Discharge Core Measures Meds if any: Prescribed or Continued at Discharge Meds if any: NOT Prescribed or Continued at Discharge Cerebrovascular accident Inclusion Criteria At DC or during hospital stay patient has or had the following: CVA/TIA Diagnosis No Discharge Core Measures Meds if any: Prescribed or Continued at Discharge Meds if any: NOT Prescribed or Continued at Discharge Venous thromboembolism Inclusion Criteria VTE Diagnosis No VTE Type NONE VTE Confirmed by (Test) NONE Discharge Core Measures - Per Current guidelines, there needs to be overlap - treatment for the first 5 days of Warfarin therapy. - If discharged on Warfarin prior to 5 days of - overlap therapy, the patient will need to be - assessed for post discharge needs including - *Post discharge parental anticoagulation - *Warfarin and/or parental anticoagulation education - *Follow up date to check INR post discharge At least 5 days overlap therapy as Inpatient No Meds if any: Prescribed or Continued at Discharge Note: Overlap Therapy is Warfarin and Anticoagulant Meds if any: NOT Prescribed or Continued at Discharge
[2017-04-08 15:09] VITALS: BP 130/66
[2017-04-08 17:17] VITALS: BP 198/88
--- NOTE | 2017-04-08 18:35 | RADIOLOGY REPORT ---
EXAMINATION: XR PORTABLE CHEST CLINICAL INFORMATION: 61-year-old male patient with sudden on the seventh of chest tightness and coughing. Possible fluid overload. COMPARISON: Portable chest x-ray done 04/04/2017. TECHNIQUE: Portable AP semierect view of the chest was obtained. FINDINGS: No significant abnormality is noted involving the heart, lungs, mediastinum, bony thorax or soft tissues. IMPRESSION: No evidence of fluid overload. No acute disease.
[2017-04-08 20:44] VITALS: BP 190/90
[2017-04-08 21:24] VITALS: BP 212/92
[2017-04-09] VITALS (11 sets, daily range): BP systolic 160–240; BP diastolic 64–104
--- NOTE | 2017-04-09 00:19 | Event Note ---
Event Note Event Note: I was paged by the nurse because the patient's blood pressure was 190/92 hours after he got 1 dose of amlodipine 5 mg, another dose of amlodipine 5 mg was ordered. After 2 hours blood pressure was still to 212/90, I examined the patient he reported feeling anxious and having mild headache, he denies any chest pain, shortness of breath localized weakness, or numbness, physical exam was normal. remeasure his blood pressure was 175/85, we'll avoid rapid and marked drop in his blood pressure to avoid worsening his kidney function We will follow up on blood pressure in 4 hours
--- NOTE | 2017-04-09 07:54 | PN- Housestaff ---
FlemingRamila 04/09/17 0749: Subjective Follow-up For: #Diarrhea #Acute renal failure/ATN #Chronic hx of HTN, HLD, BPH, osteoarthritis, GERD #Nocturnal CPAP Subjective: Patient was still being hypertensive in 170s overnight. This morning patient felt pressure in the head, and asked for CPAP use. Patient stated that he uses CPAP at home. Patient was eating breakfast when I entered. Patient tolerated the heart healthy diet. He stated he just had another episode of diarrhea before breakfast however had been tolerating all diet. Review of Systems Constitutional: Reports: see HPI. Objective Last 24 Hrs of Vital Signs/I&O Vital Signs Date Time Temp Pulse Resp B/P B/P Pulse O2 O2 Flow FiO2 Mean Ox Delivery Rate 04/09 0651 98.2 95 20 174/76 91 04/09 0028 98.7 90 20 175/85 92 04/08 2151 92 212/92 04/08 2124 97.8 90 24 212/92 92 Room Air 04/08 2044 190/90 04/08 1813 83 198/82 04/08 1717 85 198/88 95 Room Air 04/08 1509 98.4 82 18 130/66 98 Room Air 04/08 1333 164/62 Intake & Output 04/09 0800 04/09 0000 04/08 1600 Intake Total 1400 Output Total 750 1003 Balance -750 -1003 1400 Intake, IV 1000 Intake, Oral 400 Number 5 Bowel Movements Output, Stool 3 Output, Urine 750 1000 Physical Exam General Appearance: Alert, Oriented X3, Cooperative, Mild Distress Cardiovascular: Regular Rate Lungs: Clear to Auscultation, Normal Air Movement Abdomen: No Tenderness, distended Neurological: Normal Speech Extremities: No Edema, Normal Pulses Current Medications: Current Medications Sig/Stevie Start time Last Medication Dose Route Stop Time Status Admin Acetaminophen 650 MG Q6P PRN 04/04 1445 AC 04/07 PO 2145 Acetaminophen 1,000 MG Q6P PRN 04/04 1445 AC IV Amlodipine Besylate 10 MG DAILY 04/09 1000 AC PO Amlodipine Besylate 5 MG ONCE ONE 04/085 DC 04/08 PO 04/08 2145 215 Amlodipine Besylate 5 MG ONCE ONE 04/08 1745 DC 04/08 PO 04/08 174 1813 Dextrose/Sodium 1,000 ML Q8H 04/08 1000 AC 04/09 Chloride IV 0319 Heparin Sodium 5,000 UNIT Q8 04/04 2200 AC 04/09 (Porcine) SC 0600 Lactated Ringer's 1,000 ML Q8H 04/07 1130 DC 04/08 IV 0554 Lorazepam 0.5 MG ONE ONE 04/09 0015 DC 04/09 PO 04/09 0016 0026 Tamsulosin HCl 0.4 MG DAILY 04/04 1607 AC 04/08 PO 1333 Last 24 Hrs of Lab/Jian Results Last 24 Hrs of Labs/Mics: Laboratory Tests 04/09/17 0648: Sodium Pending, Potassium Pending, Chloride Pending, Carbon Dioxide Pending, Anion Gap Pending, BUN Pending, Creatinine Pending, BUN/Creatinine Ratio Pending , Phosphorus Pending, Magnesium Pending 04/08/17 1634: Calcium 9.0, Troponin I 0.03 04/08/17 1634: Calcium Cancelled Assessment/Plan Assessment: Mr. Morales is a 61-year-old male w/ PMH of HTN, HLD, GERD, presented to the emergency department with CC of multiple episodes of diarrhea and abdominal pain starting Thursday 03/30 after a eating out with family members. Patient started to have watery diarrhea the night after dinner on 03/30, and had been ongoing since then. Patient went to walkin clinic and was told to maintain hydration with Gatorade as he was diagnosed with viral syndrome. However, he felt the symptoms did not improve at all. He tried to eat a toast and scrambled egg on and could only finish part of the meal, and have to go to restroom repeatedly with watery diarrhea. Patient felt lightheaded and exertional dyspnea and presented to ER. Patient's lab on admission represented High AG Metabolic Acidosis with calculated serum OSM 285. Patient's persistent diarrhea would mostly cause a Non -AG metabolic acidosis, however patient's lactic acidosis/Starvational ketoacidosis (no keton lab yet), likely from dehydration, may still contribute to a clinical picture of HAGMA. Patient had no hx of using ASA, Tylenol for osteoarthritis, diabetes, and denied heavy use of alcohol as a social drinker. Patient would need further evaluation to confirm rule out above cause, and stablization of volume status. Patient denied much urine output after 5L of fluid and had no sensation of urgency on pressing of suprapubic area. Patient's Cr elevation to 14 could be a combined picture of CÉSAR from dehydration and ATN from hypotensive episodes. Problem list #HAGMA: due to combination of volume loss & CÉSAR, resolving - Changed fluid to Lactated Ringer 1L q8 - AG on admission 31 -> resolved - Continue BEP monitoring #Gastroenteritis 2/2 Campylobacter species - Start Ciprofloxacin 500mg q18 hrs per renal function. will titrate as Cr improved - Continue monitor. - Replete electrolytes as needed. #Acute renal failure/ATN - Cr on admission 14.9 -> 5.0 on latest lab. - repeat UA reviewed, on considerable cast - Ab CT showed no evidence of colitis/diverticulitis/obstructive uropathy. #Chronic hx of HTN, HLD, BPH, osteoarthritis, GERD - Hold PPI, lisinopril 2/2 patient's CÉSAR/ATN, will hold Fenofibrate & lipitor as well per Nephro 2/2 possible Rhabdomyolysis. - Continue Flomax - Patient's blood pressure was not adequately controlled as his lisinopril was on hold on admission. - Started Amlodipine 10mg daily - Hydralazine 25mg PO once and recheck BP to titrate dose as needed. #Use of CPAP - Patient this morning stated that he uses CPAP at home at night. [facility] was informed to start CPAP. DVT prophylaxis Heparin + ALPS Heart Healthy Diet Full Code Problem List: 1. Renal failure 2. Campylobacter gastroenteritis 3. Hypertension Pain Ratin Pain Location: NA Pain Goal: Remain pain free Pain Plan: see AP Tomorrow's Labs & Rationales: CBC/BEP EarleneSpikeadeola 04/09/17 1238: Attending MD Review Statement Attending Statement Attending MD Statement: examined this patient, discuss w/resident/PA/BOBBIN MARKER, agreed w/resident/PA/BOBBIN MARKER, discussed with family, reviewed EMR data (avail), discussed with nursing, discussed with case mgmt, reviewed images, amended to note Attending Assessment/Plan: 61 o/m with pmh of htn comes with vomiting and profuse diarrhea. Patient found to have acute renal failure with high anion gap metabolic acidosis. Patient was hypotensive on arrival to ER but responded to fluid challenge. Patient is admitted to inpatient medical services for ARF possible IVVD possible ATN. Patient seen/examined bedside. Patient c/o shortness of breath and found to have in pulmonary edema 2/2 fluid overload on chest xray. Denies chest pain, cardiac enzymes negative. Patient received lasix 40 iv one dose. Dc fluids for now. His creatinine is improving since admission with fluids. Check daily bmp and Nephrology f/u. Avoid nephrotoxic agents with cautios use of diuretics. Cardiology consult. Diarrhea: Campylobacter positive started on ciprofloxacin. Improvement in loose stools. c diff negative gi/dvt prophylaxis full code. Patient transfered to telemetry for bp control and iv meds.
--- NOTE | 2017-04-09 10:23 | PN- Nephrology ---
Assessment/Plan Nephrology Assessment: CÉSAR improving, although unclear what baseline renal funciton is. ELIANE/[place] pending. SOB today and could be volume overloaded from IVF. Suggestion: CXR pending. At this point could discontinue IV fluids and just observe response. If signficantly overloaded on CXR might need some diuresis. Subjective Subjective: Patient on CPAP but states he feels SOB. Has been in postive fluid balance with IV fluids. Objective Vital Signs and I&Os Vital Signs Date Time Temp Pulse Resp B/P B/P Pulse O2 O2 Flow FiO2 Mean Ox Delivery Rate 04/09 1002 220/90 04/09 0952 240/104 04/09 0911 Room Air Room Air 04/09 0905 99 220/90 93 CPAP 04/09 0816 98 04/09 0803 200/90 04/09 0800 CPAP 04/09 0651 98.2 95 20 174/76 91 04/09 0028 98.7 90 20 175/85 92 04/08 2151 92 212/92 04/08 2124 97.8 90 24 212/92 92 Room Air 04/08 2044 190/90 04/08 1813 83 198/82 04/08 1717 85 198/88 95 Room Air 04/08 1509 98.4 82 18 130/66 98 Room Air 04/08 1333 164/62 Intake & Output 04/09 1600 04/09 0400 04/08 1600 04/08 0400 04/07 1600 04/07 0400 Intake Total 1000 2600 720 2720 620 Output Total 750 1003 567 202 8111 600 Balance 250 -1003 0 -30 1719 20 Intake, IV 1000 2000 2000 500 Intake, Oral 600 720 720 120 Number 7 2 6 3 Bowel Movements Output, Stool 3 1 Output, Urine 750 1000 899 316 2617 600 Physical Exam: NAD VS as above Lungs: clear CV: no rub Abd: nontender Exts: no edema Neuro: A&O Current Medications: Current Medications Sig/Stevie Start time Last Medication Dose Route Stop Time Status Admin Acetaminophen 650 MG Q6P PRN 04/04 1445 AC 04/07 PO 2144 Acetaminophen 1,000 MG Q6P PRN 04/04 1445 AC IV Amlodipine Besylate 10 MG DAILY 04/09 1000 AC 04/09 PO 0803 Amlodipine Besylate 5 MG ONCE ONE 04/08 2144 DC 04/08 PO 02/19 2146 2151 Amlodipine Besylate 5 MG ONCE ONE 04/08 1745 DC 04/08 PO 04/08 1746 1813 Ciprofloxacin 500 MG Q18H 04/09 1000 AC PO 04/13 0959 Dextrose/Sodium 1,000 ML Q8H 04/08 1000 AC 04/09 Chloride IV 0319 Heparin Sodium 5,000 UNIT Q8 04/04 2200 AC 04/09 (Porcine) SC 0600 Hydralazine HCl 25 MG 30 04/09 0930 DC 04/09 PO 04/09 0931 1002 Lorazepam 0.5 MG ONE ONE 04/09 0015 DC 04/09 PO 04/09 0016 0026 Magnesium Chloride 64 MG 0945 04/09 0945 DC PO 04/09 0946 Tamsulosin HCl 0.4 MG DAILY 04/04 1607 AC 04/08 PO 1333 Results Pertinent Lab Results: Laboratory Tests 04/09 04/08 04/08 0648 1634 1634 Chemistry Sodium (137 - 145 mmol/L) 144 Potassium (3.5 - 5.1 mmol/L) 4.3 Chloride (98 - 107 mmol/L) 101 Carbon Dioxide (22 - 30 mmol/L) 30 Anion Gap (5 - 16) 13 BUN (9 - 20 mg/dL) 63 H Creatinine (0.7 - 1.2 mg/dL) 5.0 H Estimated GFR (>60 ml/min) 12 L BUN/Creatinine Ratio (7 - 25 %) 12.6 Calcium (8.4 - 10.2 mg/dL) 9.0 Cancelled Phosphorus (2.5 - 4.5 mg/dL) 4.4 Magnesium (1.6 - 2.3 mg/dL) 1.6 Troponin I (<0.11 ng/ml) Pending 0.03 04/08 04/07 0653 0656 Chemistry Sodium (137 - 145 mmol/L) 144 142 Potassium (3.5 - 5.1 mmol/L) 3.9 3.5 Chloride (98 - 107 mmol/L) 101 97 L Carbon Dioxide (22 - 30 mmol/L) 30 29 Anion Gap (5 - 16) 13 16 BUN (9 - 20 mg/dL) 79 H 97 H Creatinine (0.7 - 1.2 mg/dL) 6.3 *H 9.3 *H Estimated GFR (>60 ml/min) 9 L 6 L BUN/Creatinine Ratio (7 - 25 %) 12.5 10.4 Calcium (8.4 - 10.2 mg/dL) 8.9 Phosphorus (2.5 - 4.5 mg/dL) 5.4 H Magnesium (1.6 - 2.3 mg/dL) 1.6 Albumin (3.5 - 5.0 g/dL) 3.3 L Hematology CBC w Diff NO MAN DIFF REQ NO MAN DIFF REQ WBC (4.8 - 10.8 /CUMM) 6.2 5.8 RBC (4.70 - 6.10 /CUMM) 3.82 L 4.04 L Hgb (14.0 - 18.0 G/DL) 10.8 L 11.3 L Hct (42 - 52 %) 31.5 L 33.1 L MCV (80.0 - 94.0 FL) 82.7 82.0 MCH (27.0 - 31.0 PG) 28.4 28.0 MCHC (33.0 - 37.0 G/DL) 34.3 34.2 RDW (11.5 - 14.5 %) 14.2 14.1 Plt Count (130 - 400 /CUMM) 242 241 MPV (7.4 - 10.4 FL) 8.5 8.1 Gran % (42.2 - 75.2 %) 58.8 61.5 Lymphocytes % (20.5 - 51.1 %) 27.2 24.7 Monocytes % (1.7 - 9.3 %) 9.5 H 10.3 H Eosinophils % (0 - 5 %) 4.2 3.0 Basophils % (0.0 - 2.0 %) 0.3 0.5 Absolute Granulocytes (1.4 - 6.5 /CUMM) 3.7 3.6 Absolute Lymphocytes (1.2 - 3.4 /CUMM) 1.7 1.4 Absolute Monocytes (0.10 - 0.60 /CUMM) 0.6 0.6 Absolute Eosinophils (0.0 - 0.7 /CUMM) 0.3 0.2 Absolute Basophils (0.0 - 0.2 /CUMM) 0 0 04/06 04/06 1500 1500 Urines Urine Color (YEL,AMB,STR) YEL Urine Clarity (CLEAR) CLEAR Urine pH (5.0 - 8.0) 6.0 Ur Specific [place] (1.001 - 1.035) 1.015 Urine Protein (NEG,<30 MG/DL) 30 H Urine Ketones (NEG) NEG Urine Nitrite (NEG) NEG Urine Bilirubin (NEG) NEG Urine Urobilinogen (0.1 - 1.0 EU/dl) 0.2 Ur Leukocyte Esterase (NEG) TRACE H Ur Microscopic SEDIMENT EXAMINED Urine RBC (0 - 5 /HPF) 25-50 H Urine WBC (0 - 2 /HPF) 1-3 H Ur Epithelial Cells (NONE,FEW) FEW Urine Bacteria (NEG/NONE) RARE H Hyaline Casts (0/LPF) RARE H Urine Hemoglobin (NEG) LARGE H Ur Random Creatinine (mg/dL) 118.1 U Random Total Protein (0 - 12 mg/dL) 52 H Protein/Creatinin Ratio (< 0.2) 0.4 H Urine Glucose (N MG/DL) NEG
--- NOTE | 2017-04-09 10:36 | RADIOLOGY REPORT ---
EXAMINATION: XR PORTABLE CHEST CLINICAL INFORMATION: Hypertension with wheezing. Rule out fluid overload. COMPARISON: Portable chest x-ray dated 04/08/2017. TECHNIQUE: Portable frontal view of the chest was obtained. FINDINGS: There is increased density in the left retrocardiac region which could be due to imaging technique however an infiltrate is not excluded. There is interval development of increased prominence of the pulmonary interstitial markings, particularly left sided, consistent with pulmonary vascular congestion. No definite blunting the costophrenic angles is present, however small pleural effusions are not excluded. The cardiac silhouette is not enlarged. IMPRESSION: 1. Prominence of the pulmonary interstitial markings is increased compared to the prior study particularly in the left hemithorax. Findings are concerning for pulmonary vascular congestion. No definite pleural effusions are visualized. 2. Increased density left retrocardiac region may be due to imaging technique however clinical correlation is requested.
--- NOTE | 2017-04-09 10:57 | Event Note ---
Event Note Event Note: SITUATION: Pt complaining of shortness of breath. Tachypneic, high BP, no CP or pressure. Had been receiving IV fluids until last evening at 125 ml/hr, eating and drinking well. Just informed us this AM that he had CPAP at night at home. Appears in mod-severe resp distress. ASSESSMENT: BP 210/90, repeat 200/85. HTN Urgency, no focal neuro or cardio complication Acute Pul Edema clinically with b/l crackles over lung david. Pt in resp distress. PLAN: O2 to maintain SpO2>90% RT, TRC CXR STAT EKG, trop If fluid overloaded, will give IV Lasix, even though his creatinine is high. ( CÉSAR has been improving) HTN urgency management in telemetry. Discussed with attending. Cardiology consult to be placed. For now, PE is a differential but low probability given his clinical picture. Attending notified. Tx to tele. Resident, manager international and MOD notified. Attending will sign out to attending.
--- NOTE | 2017-04-09 11:58 | Cons- Cardiology ---
General Information and HPI Consulting Request Date of Consult: 04/09/17 Requested By: Arian Henao MD Reason for Consult: Acute shortness of breath and hypertension Source of Information: patient Exam Limitations: no limitations History of Present Illness: The patient is 61-year-old male with a history of hypertension, hyperlipidemia, gastroesophageal reflux disease, chronic kidney disease stage II to III who presented with multiple episodes of diarrhea abdominal pain beginning March 30. His symptoms are persistent and therefore he went to the walk-in clinic where he is diagnosed with a viral syndrome and recommended hydration. He continued to have watery diarrhea and therefore presented to the emergency room approximately 5 days ago. He was found to be hypotensive and dehydrated in acute renal failure and was given IV fluids. He states also due to his illness he was taking Advil. Today the patient developed acute shortness of breath with chest heaviness and significant hypertension to a systolic blood pressure of 220. He was administered Lasix due to probable fluid overload along with by mouth hydralazine. He was given his usual dose of amlodipine. Patient states that he urinated and does feel better. He denies any further chest pressure. His renal function has gradually improved He has noted that his abdomen has been distended more so than usual. Ex line he denies any prior cardiac history Allergies/Medications Allergies: Coded Allergies: cimetidine (From TAGAMET) (UNKNOWN 04/04/17) Home Med List: Fenofibric Acid (Choline) (Fenofibric Acid) 135 MG CAPSULE.DR 1 CAP PO DAILY CHOLESTEROL (Reported) Lisinopril 20 MG TABLET 1 TAB PO DAILY HEART (Reported) Omeprazole 40 MG CAPSULE.DR 1 CAP PO DAILY GI (Reported) Simvastatin (Simvastatin*) 40 MG TABLET 1 TAB PO QPM CHOLESTEROL (Reported) Tamsulosin HCl 0.4 MG CAP.ER.24H 1 CAP PO DAILY PROSTATE (Reported) Review of Systems Review of Systems: Eyes no blurred or double vision Ears no deafness or ringing Nose and throat no recurrent sinusitis Lungs per history of present illness Heart per history of present illness Abdomen diarrhea as noted above Musculoskeletal occasional muscle and joint pains Psych no anxiety or depression Neuro without recurrent headache or seizures Endocrine no heat or cold intolerance Past History Travel History Traveled to [place] past 21 day No Medical History Blood Transfusion Hx: No Neurological: migraine EENT: NONE Cardiovascular: hypertension, hyperlipidemia Respiratory: obstructive sleep apnea Gastrointestinal: GERD Hepatic: NONE Renal: NONE (kidney cyst) Musculoskeletal: osteoarthritis Psychiatric: NONE Endocrine: NONE Blood Disorders: NONE Cancer(s): NONE OFFICE CLEANER/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 Home Who Do You Live With? spouse Smoking Status: Former Smoker ETOH Use: occasional use Illicit Drug Use: marijuana, Last use of Marijuana 1 month ago Functional Ability ADLs Independent: dressing, eating, toileting, bathing. Employment History Employment: Employed Profession/Employer Permanent [employer] Exam & Diagnostic Data Vital Signs and I&O Vital Signs Date Time Temp Pulse Resp B/P B/P Pulse O2 O2 Flow FiO2 Mean Ox Delivery Rate 04/09 1142 198/80 04/09 1118 99.1 98 22 198/80 92 Room Air 04/09 1002 220/90 04/09 0952 240/104 04/09 0911 Room Air Room Air 04/09 0905 99 220/90 93 CPAP 04/09 0816 98 04/09 0803 200/90 04/09 0800 CPAP 04/09 0651 98.2 95 20 174/76 91 04/09 0028 98.7 90 20 175/85 92 04/08 2151 92 212/92 04/08 2124 97.8 90 24 212/92 92 Room Air 04/08 2044 190/90 04/08 1813 83 198/82 04/08 1717 85 198/88 95 Room Air 04/08 1509 98.4 82 18 130/66 98 Room Air 04/08 1333 164/62 Intake & Output 04/09 1600 04/09 0800 04/09 0000 04/08 1600 04/08 0800 04/08 0000 Intake Total 1000 1400 1200 720 Output Total 750 1003 550 750 Balance 250 -1003 1400 650 -30 Intake, IV 1000 1000 1000 Intake, Oral 400 200 720 Number 5 2 2 Bowel Movements Output, Stool 3 Output, Urine 750 1000 550 750 Physical Exam: Patient is a well-developed well-nourished male appearing in no acute distress HEENT is unremarkable Neck is supple there is no JVD Lungs bibasilar Rales Heart regular rhythm S1 and S2 are normal no murmurs gallops or rubs Abdomen distended bowel sounds positive Extremities without edema Labs/Jian Results: Laboratory Tests 04/09 04/09 04/08 04/08 1015 0648 1634 1634 Chemistry Sodium (137 - 145 mmol/L) 144 Potassium (3.5 - 5.1 mmol/L) 4.3 Chloride (98 - 107 mmol/L) 101 Carbon Dioxide (22 - 30 mmol/L) 30 Anion Gap (5 - 16) 13 BUN (9 - 20 mg/dL) 63 H Creatinine (0.7 - 1.2 mg/dL) 5.0 H Estimated GFR (>60 ml/min) 12 L BUN/Creatinine Ratio (7 - 25 %) 12.6 Calcium (8.4 - 10.2 mg/dL) 9.0 Cancelled Phosphorus (2.5 - 4.5 mg/dL) 4.4 Magnesium (1.6 - 2.3 mg/dL) 1.6 Troponin I (<0.11 ng/ml) 0.03 0.03 Coagulation D-Dimer High Sensitivty Cancelled 04/08 0653 Chemistry Sodium (137 - 145 mmol/L) 144 Potassium (3.5 - 5.1 mmol/L) 3.9 Chloride (98 - 107 mmol/L) 101 Carbon Dioxide (22 - 30 mmol/L) 30 Anion Gap (5 - 16) 13 BUN (9 - 20 mg/dL) 79 H Creatinine (0.7 - 1.2 mg/dL) 6.3 *H Estimated GFR (>60 ml/min) 9 L BUN/Creatinine Ratio (7 - 25 %) 12.5 Calcium (8.4 - 10.2 mg/dL) 8.9 Phosphorus (2.5 - 4.5 mg/dL) 5.4 H Magnesium (1.6 - 2.3 mg/dL) 1.6 Albumin (3.5 - 5.0 g/dL) 3.3 L Hematology CBC w Diff NO MAN DIFF REQ WBC (4.8 - 10.8 /CUMM) 6.2 RBC (4.70 - 6.10 /CUMM) 3.82 L Hgb (14.0 - 18.0 G/DL) 10.8 L Hct (42 - 52 %) 31.5 L MCV (80.0 - 94.0 FL) 82.7 MCH (27.0 - 31.0 PG) 28.4 MCHC (33.0 - 37.0 G/DL) 34.3 RDW (11.5 - 14.5 %) 14.2 Plt Count (130 - 400 /CUMM) 242 MPV (7.4 - 10.4 FL) 8.5 Gran % (42.2 - 75.2 %) 58.8 Lymphocytes % (20.5 - 51.1 %) 27.2 Monocytes % (1.7 - 9.3 %) 9.5 H Eosinophils % (0 - 5 %) 4.2 Basophils % (0.0 - 2.0 %) 0.3 Absolute Granulocytes (1.4 - 6.5 /CUMM) 3.7 Absolute Lymphocytes (1.2 - 3.4 /CUMM) 1.7 Absolute Monocytes (0.10 - 0.60 /CUMM) 0.6 Absolute Eosinophils (0.0 - 0.7 /CUMM) 0.3 Absolute Basophils (0.0 - 0.2 /CUMM) 0 Diagnostic Data EKG Results Sinus rhythm CXR Results IMPRESSION: 1. Prominence of the pulmonary interstitial markings is increased compared to the prior study particularly in the left hemithorax. Findings are concerning for pulmonary vascular congestion. No definite pleural effusions are visualized. 2. Increased density left retrocardiac region may be due to imaging technique however clinical correlation is requested. Assessment/Plan Assessment/Plan 1. Acute shortness of breath with pulmonary vascular congestion noted on chest x-ray most likely secondary to fluid overload and renal failure 2. Acute on chronic renal failure secondary to nonsteroidals and dehydration 3. Hypertensive urgency 4. Hyperlipidemia 5. Gastroenteritis secondary to Campylobacter 6. Obstructive sleep apnea on CPAP Recommendations 1. I agree with IV hydralazine 2. Lasix as per renal 3. Would obtain an echocardiogram to assess his LV function 4. Troponins 5. Would refrain from further hydration Thank you for allowing [facility] to participate in the care of your patient. Consult Acknowledgment - Thank you for your consult request.
--- NOTE | 2017-04-09 23:08 | RADIOLOGY REPORT ---
EXAMINATION: XR CHEST CLINICAL INFORMATION: Hypertensive urgency COMPARISON: 04/09/2017 TECHNIQUE: 2 views of the chest were obtained. FINDINGS: The lungs are well expanded. Increased left perihilar hazy opacity when compared to the prior from the same day. No pleural effusion or pneumothorax. Persistent minimal retrocardiac opacity. The cardiomediastinal silhouette is within normal limits. No acute osseous abnormality. IMPRESSION: Increasing hazy opacity in the left perihilar region which could represent asymmetric pulmonary edema. Developing infectious/inflammatory process also possible.
[2017-04-10 02:15] VITALS: BP 200/96
[2017-04-10 05:42] VITALS: BP 200/80
--- NOTE | 2017-04-10 07:39 | ECHOCARDIOGRAM REPORT ---
TONNY ALBRIGHT Age: 61 : 1955 Gender: M Exam Date: 04/09/2017 20:48 Exam Location: [address] Ht (in): 69 Wt (lb): 244 BSA: 2.36 BP: 198 / 80 Ordering Physician: Stefanie Dalal MD Referring Physician: Pranav Dinero MD Technologist: Eliazar Krause [facility] Room Number: 189-02 Indications: HYPERTENSION Rhythm: Sinus Technical Quality: fair FINDINGS Left Ventricle Normal size left ventricle. Left ventricular wall thickness mildly increased. Normal left ventricular ejection fraction estimated at 60-65%. Right Ventricle Normal right ventricular size and function. Right Atrium Normal right atrial size. Left Atrium Mild left atrial dilatation. Mitral Valve Mild mitral annular calcification. Trace to mild mitral regurgitation. Aortic Valve Aortic valve not well visualized, grossly normal. Tricuspid Valve Tricuspid valve not well visualized, grossly normal. Mild tricuspid regurgitation. Pulmonic Valve Pulmonic valve not well visualized, grossly normal. Pericardium No pericardial effusion. Great Vessels Normal size aortic root. CONCLUSIONS Normal left and right ventricular systolic function. Mild left ventricular hypertrophy. Mild left atrial enlargement. No significant valvular abnormalities noted. Pranav Dinero M.D. (Electronically Signed) Final Date: 10 April 2017 07:38 MEASUREMENTS (Male / Female) Normal Values 2D ECHO LV Diastolic Diameter PLAX 5.0 cm 4.2 - 5.9 / 3.9 - 5.3 cm LV Systolic Diameter PLAX 3.0 cm 2.1 - 4.0 cm LV Fractional Shortening PLAX 40.0 % 25 - 46 % LV Ejection Fraction 2D Teich 70.4 % IVS Diastolic Thickness 1.2 cm LVPW Diastolic Thickness 1.1 cm LV Relative Wall Thickness 0.5 RV Internal Dim ED PLAX 3.4 cm 1.9 - 3.8 cm LVOT Diameter 2.3 cm Aortic Root Diameter 3.4 cm LA Systolic Diameter LX 4.0 cm 3.0 - 4.0 / 2.7 - 3.8 cm LA Volume 65.0 cm 18 - 58 / 22 - 52 cm Ascending Aorta Diameter 3.2 cm DOPPLER AV Peak Velocity 162.0 cm/s AV Peak Gradient 10.5 mmHg AV Mean Velocity 110.0 cm/s AV Mean Gradient 6.0 mmHg AV Velocity Time Integral 30.4 cm LVOT Peak Velocity 154.0 cm/s LVOT Peak Gradient 9.5 mmHg LVOT Mean Velocity 95.7 cm/s LVOT Mean Gradient 4.0 mmHg LVOT Velocity Time Integral 28.2 cm LVOT Stroke Volume 117.2 cm AV Area Cont Eq vti 3.9 cm AV Area Cont Eq pk 3.9 cm MV Peak Velocity 105.0 cm/s MV Peak Gradient 4.4 mmHg MV Mean Velocity 70.7 cm/s MV Mean Gradient 2.0 mmHg Mitral E Point Velocity 88.2 cm/s Mitral A Point Velocity 96.7 cm/s Mitral E to A Ratio 0.9 MV Deceleration King 346.0 cm/s MV Deceleration Time 232.0 ms TV Peak Velocity 244.0 cm/s Right Atrial Pressure 5.0 mmHg PV Peak Velocity 134.5 cm/s PV Peak Gradient 7.2 mmHg PV Mean Velocity 97.3 cm/s PV Mean Gradient 4.0 mmHg PV Velocity Time Integral 23.9 cm LV E' Lateral Velocity 10.0 cm/s Mitral E to LV E' Lateral Ratio 8.8 LV E' Septal Velocity 7.4 cm/s Mitral E to LV E' Septal Ratio 11.9
[2017-04-10 08:07] VITALS: BP 174/74
--- NOTE | 2017-04-10 08:29 | PN- Housestaff ---
See Addendum Subjective Follow-up For: Hypertensive urgency and pulmonary edema Campylobacter gastroenteritis Possible pneumonia CÉSAR Obstructive Uropathy Tele-Events Since Last Visit: Normal sinus rhythm with heart rate between 84-117 Subjective: Patient was seen and examined today. Patient states that he did not sleep well overnight. States that he has had to use the restroom frequently. Patient notes that he initially has difficulty initiating stream. Patient notes lower abdominal discomfort. Denies any dysuria/hematuria. Patient also states that he has been having headaches. Patient denies any pain at this time. Patient denies any visual disturbances. Denies any lightheadedness, dizziness, chest pain, shortness of breath. Patient's blood pressure overnight was 200 over Review of Systems Constitutional: Reports: see HPI. Objective Last 24 Hrs of Vital Signs/I&O Vital Signs Date Time Temp Pulse Resp B/P B/P Pulse O2 O2 Flow FiO2 Mean Ox Delivery Rate 04/10 1452 98.6 97 20 150/74 97 Nasal 2.0L Cannula 04/10 1439 154/78 04/10 0858 174/74 04/10 0857 174/74 04/10 0857 174/74 04/10 0809 94 Nasal 2.0L Cannula 04/10 0807 174/74 04/10 0631 98 200/80 04/10 0542 98.6 98 20 200/80 96 Nasal 2.5L Cannula 04/10 0310 105 97 04/10 0308 93 200/96 04/10 0215 93 200/96 04/10 0004 92 200/90 04/09 2335 92 200/90 04/09 2231 92 180/90 04/09 2214 98.5 90 22 180/90 95 Nasal Cannula 04/09 2211 90 93 04/09 2108 Nasal 2.0L Cannula 04/09 2045 90 178/96 04/09 1810 160/74 Intake & Output 04/10 1600 04/10 0800 04/10 0000 Intake Total 420 240 Output Total 700 350 200 Balance -280 -110 -200 Intake, IV 20 Intake, Oral 400 240 Number 1 Bowel Movements Output, Urine 700 350 200 Patient 228 lb Weight Weight Bed scale Measurement Method Physical Exam General Appearance: Alert, Oriented X3, Cooperative, No Acute Distress HEENT: Atraumatic, Mucous Membr. moist/pink Cardiovascular: Regular Rate, Normal S1, Normal S2 Lungs: decreased breath sounds bilaterally at lung bases, scattered crackles greater on the left Abdomen: Normal Bowel Sounds, Soft, distended, mild tenderness in the suprapubic region Neurological: Normal Speech Extremities: No Clubbing, No Cyanosis, No Edema, Normal Pulses, No Tenderness/ Swelling Current Medications: Current Medications Sig/Stevie Start time Last Medication Dose Route Stop Time Status Admin Acetaminophen 650 MG .STK-MED ONE 04/10 0901 DC PO 04/10 0902 Acetaminophen 650 MG Q6P PRN 04/04 1445 AC 04/10 PO 1440 Acetaminophen 1,000 MG Q6P PRN 04/04 1445 AC IV Amlodipine Besylate 10 MG DAILY 04/09 1000 AC 04/10 PO 0857 Carvedilol 12.5 MG BID 04/10 1330 AC 04/10 PO 1439 Ciprofloxacin 500 MG Q18H 04/09 1000 DC 04/10 PO 04/13 0959 0308 Doxazosin Mesylate 4 MG DAILY 04/10 1715 AC PO Furosemide 20 MG ONCE ONE 04/10 1330 DC 04/10 IV 04/10 1331 1439 Furosemide 40 MG ONCE ONE 04/10 0130 DC 04/10 IV 04/10 0131 0223 Heparin Sodium 5,000 UNIT Q8 04/04 2200 AC 04/10 (Porcine) SC 1441 Hydralazine HCl 10 MG ONCE ONE 04/10 0545 DC 04/10 IV 04/10 0546 0631 Hydralazine HCl 5 MG ONCE ONE 04/10 0245 DC 04/10 IV 04/10 0246 0308 Hydralazine HCl 5 MG ONCE ONE 04/09 2345 DC 04/10 IV 04/09 2346 0004 Hydralazine HCl 25 MG ONCE ONE 04/09 2230 DC 04/09 PO 04/09 2231 2231 Hydralazine HCl 25 MG TID 04/09 2200 AC 04/10 PO 1636 Magnesium Oxide 400 MG ONE ONE 04/10 0130 DC 04/10 PO 04/10 0131 0223 Moxifloxacin HCl 400 MG DAILY 04/11 1000 CAN PO Patient Medication 1 ED ONE ONE 04/10 1200 DC Teaching ED 04/10 1201 Tamsulosin HCl 0.8 MG DAILY 04/11 1600 AC PO Tamsulosin HCl 0.4 MG ONCE ONE 04/10 1730 DC PO 04/10 1731 Tamsulosin HCl 0.4 MG DAILY 04/04 1607 DC 04/10 PO 0857 Last 24 Hrs of Lab/Jian Results Last 24 Hrs of Labs/Mics: Laboratory Tests 04/10/17 0900: Prot Electrophoresis Pending, Total Protein (PEP) Pending, Albumin % (PEP) Pending, Ibczu-6-Digofnizn Pending, Khedh-1-Tbvyfffjs Pending, Tomo-1-Xuwbqewh Pending, Cvpo-7-Ostrzcsu Pending, Gamma Globulins Pending, Abnorm Protein Band 1 Pending, Abnorm Protein Band 2 Pending, Abnorm Protein Band 3 Pending 04/10/17 0644: Anion Gap 17 H, Estimated GFR 13 L, BUN/Creatinine Ratio 12.0, Magnesium 1.5 L 04/09/17 1803: Anion Gap 16, Estimated GFR 13 L, BUN/Creatinine Ratio 12.3, Phosphorus 4.2, Magnesium 1.5 L 04/09/17 1730: Urine Color STRAW, Urine Clarity CLEAR, Urine pH 7.5, Ur Specific [place] 1.015, Urine Protein NEG, Urine Ketones NEG, Urine Nitrite NEG, Urine Bilirubin NEG, Urine Urobilinogen 0.2, Ur Leukocyte Esterase TRACE H, Ur Microscopic SEDIMENT EXAMINED, Urine RBC 1-3, Urine WBC 1-3 H, Ur Epithelial Cells RARE, Urine Bacteria RARE H, Urine Mucus RARE, Urine Hemoglobin TRACE-INTACT H, Urine Glucose NEG Assessment/Plan Assessment: Mr. Morales is a 61-year-old male w/ PMH of HTN, HLD, GERD, presented to the emergency department with CC of multiple episodes of diarrhea and abdominal pain starting Thursday 03/30 after a eating out with family members. Patient started to have watery diarrhea the night after dinner on 03/30, and had been ongoing since then. Patient went to walkin clinic and was told to maintain hydration with Gatorade as he was diagnosed with viral syndrome. However, he felt the symptoms did not improve at all. He tried to eat a toast and scrambled egg on and could only finish part of the meal, and have to go to restroom repeatedly with watery diarrhea. Patient felt lightheaded and exertional dyspnea and presented to ER. Assessment: Patient initially presented this admission with hypotension, CÉSAR with creatinine of 15, and acute diarrhea. Patient was subsequently given IV fluid hydration and seen by nephrology. Patient was found to have campylobacter in his stool culture and was started on ciprofloxacin (renally dosed). Patient the day prior, had elevated blood pressure with systolics in the 200s and diastolic in the 100s. Patient was subsequently transferred to telemetry for hypertensive urgency and pulmonary edema seen on CXR. Patient received multiple doses of IV lasix after clearing with nephrology and cardiology was consulted. Patient had an ECHO which was normal and serial ECG and trops were negative. Patient received multiple pushes of IV hydralazine and PO hydralazine while continue PO amlodipine. Patient's blood pressure downtrended yesterday afternoon however overnight continued to rise. Patient had a repeat CXR yesterday evening which showed an increased opacity on the left indicative of asymmetric pulmonary edema vs an infectious/inflammatory process. Patient is currently on ciprofloxacin. Patient was given more IV lasix today and started on carvedilol 12.5mg. Patient's blood pressure has decreased to the 150s systolic. Patient has been experiencing abdominal discomfort and had a bladder scan this afternoon showing a PVR of > 700cc. Patient is refusing solano catheter as he had a traumatic experience earlier in the admission and has had difficulty urinating since placement of previous solano. Urology was consulted. Spoke to Dr. Tidwell who will see the patient tonight. Patient's Tamsulosin was increased from 0.4mg daily to 0.4mg BID. Problems: 1. Hypertensive Urgency 2. Obstructive Uropathy 3. CÉSAR 4. Campylobacter gastroenteritis 5. Questionable Pneumonia Plan: Admitted to telemetry Continue to monitor on tele Continue antihypertensives: carvedilol, amlodipine, hydralazine Continue to diurese as necessary Continue to monitor BEP - for renal function Continue antibiotic therapy Cardiology and nephrology consulted. Appreciate recommendations. Urology consulted today. Will come in today to place a solano Continue tamsulosin at increased dose of 0.4mg BID DVT PPX: heparin SC Diet: Heart healthy diet Code: full code Problem List: 1. Hypertensive urgency 2. Obstructive uropathy 3. CÉSAR (acute kidney injury) 4. Campylobacter gastroenteritis Pain Ratin Pain Location: lower abdomen Pain Goal: Pain 4 or less Pain Plan: tylenol PRN Tomorrow's Labs & Rationales: cbc bep
--- NOTE | 2017-04-10 09:02 | PN- Nephrology ---
See Addendum Assessment/Plan Nephrology Assessment: Creatiine still improving although not clear what basesline is. BP still up. Off IVs now and seem euvolemic. Suggestion: As BP up may need to increase hydralazine or consider adding Carvedilol at low dose. Will try and contact PCP today and see if they have any recent labs. SPEP never sent so I reorderd it. Remaineder of serologic evaluation (ANCA, hepatitis screen, ELIANE, complements) all normal. Subjective Subjective: Patient resting comfortably in bed. Not SOB. Diuresed about 1500 cc yesterday. Probably had some fluid overload from IVs. Objective Vital Signs and I&Os Vital Signs Date Time Temp Pulse Resp B/P B/P Pulse O2 O2 Flow FiO2 Mean Ox Delivery Rate 04/10 0809 94 Nasal 2.0L Cannula 04/10 0807 174/74 04/10 0631 98 200/80 04/10 0542 98.6 98 20 200/80 96 Nasal 2.5L Cannula 04/10 0310 105 97 04/10 0308 93 200/96 04/10 0215 93 200/96 04/10 0004 92 200/90 04/09 2335 92 200/90 04/09 2231 92 180/90 04/09 2214 98.5 90 22 180/90 95 Nasal Cannula 04/09 2211 90 93 04/09 2108 Nasal 2.0L Cannula 04/09 2045 90 178/96 04/09 1810 160/74 04/09 1604 99 184/64 04/09 1600 Nasal 2.0L Cannula 04/09 1523 192/70 04/09 1435 99.7 120 22 200/74 96 Nasal 2.0L Cannula 04/09 1220 98.8 180/78 04/09 1142 198/80 04/09 1118 99.1 98 22 198/80 92 Room Air 04/09 1115 Room Air Room Air 04/09 1002 220/90 04/09 0952 240/104 04/09 0911 Room Air Room Air 04/09 0905 99 220/90 93 CPAP Intake & Output 04/10 1600 04/10 0400 04/09 1600 04/09 0400 04/08 1600 04/08 0400 Intake Total 240 1090 2600 720 Output Total 468 461 9056 1003 550 750 Balance -110 -200 -1385 -1003 2050 -30 Intake, IV 1000 2000 Intake, Oral 240 90 600 720 Number 1 3 7 2 Bowel Movements Output, Stool 3 Output, Urine 171 622 7224 1000 550 750 Patient 228 lb 244 lb Weight Weight Bed scale Measurement Method Physical Exam: NAD VS as above Lungs: clear CV: no rub Abd: nontender Exts: no edema Neuro: A&O Current Medications: Current Medications Sig/Stevie Start time Last Medication Dose Route Stop Time Status Admin Acetaminophen 650 MG Q6P PRN 04/04 1445 AC 04/07 PO 2145 Acetaminophen 1,000 MG Q6P PRN 04/04 1445 AC IV Amlodipine Besylate 10 MG DAILY 04/09 1000 AC 04/09 PO 0803 Ciprofloxacin 500 MG Q18H 04/09 1000 AC 04/10 PO 04/13 0959 0308 Dextrose/Sodium 1,000 ML Q8H 04/08 1000 DC 04/09 Chloride IV 0319 Furosemide 40 MG ONCE ONE 04/10 0130 DC 04/10 IV 04/10 0131 0223 Furosemide 40 MG ONCE ONE 04/09 1415 DC 04/09 IV 04/09 1416 1432 Furosemide 40 MG 1045 04/09 1045 CAN PO 04/09 1046 Furosemide 40 MG ONCE ONE 04/09 1045 DC 04/09 IV 04/09 1046 1047 Heparin Sodium 5,000 UNIT Q8 04/04 2200 AC 04/10 (Porcine) SC 0632 Hydralazine HCl 10 MG ONCE ONE 04/10 0545 DC 04/10 IV 04/10 0546 0631 Hydralazine HCl 5 MG ONCE ONE 04/10 0245 DC 04/10 IV 04/10 0246 0308 Hydralazine HCl 5 MG ONCE ONE 04/09 2345 DC 04/10 IV 04/09 2346 0004 Hydralazine HCl 25 MG ONCE ONE 04/09 2230 DC 04/09 PO 04/09 2231 2231 Hydralazine HCl 25 MG TID 04/09 2200 AC 04/09 PO 2045 Hydralazine HCl 10 MG ONCE ONE 04/09 1500 DC 04/09 IV 04/09 1501 1523 Hydralazine HCl 10 MG ONCE ONE 04/09 1130 DC 04/09 IV 04/09 1131 1142 Hydralazine HCl 25 MG 0930 04/09 0930 DC 04/09 PO 04/09 0931 1002 Magnesium Chloride 64 MG 0945 04/09 0945 DC 04/09 PO 04/09 0946 1432 Magnesium Oxide 400 MG ONE ONE 04/10 0130 DC 04/10 PO 04/10 0131 0223 Tamsulosin HCl 0.4 MG DAILY 04/04 1607 AC 04/09 PO 1047 Results Pertinent Lab Results: Laboratory Tests 04/10 04/09 04/09 04/09 0644 1803 1730 1430 Chemistry Sodium (137 - 145 mmol/L) 142 140 Potassium (3.5 - 5.1 mmol/L) 4.1 4.5 Chloride (98 - 107 mmol/L) 100 97 L Carbon Dioxide (22 - 30 mmol/L) 26 27 Anion Gap (5 - 16) 17 H 16 BUN (9 - 20 mg/dL) 55 H 58 H Creatinine (0.7 - 1.2 mg/dL) 4.6 H 4.7 H Estimated GFR (>60 ml/min) 13 L 13 L BUN/Creatinine Ratio (7 - 25 %) 12.0 12.3 Phosphorus (2.5 - 4.5 mg/dL) 4.2 Magnesium (1.6 - 2.3 mg/dL) 1.5 L 1.5 L Troponin I (<0.11 ng/ml) 0.04 Urines Urine Color (YEL,AMB,STR) STRAW Urine Clarity (CLEAR) CLEAR Urine pH (5.0 - 8.0) 7.5 Ur Specific [place] (1.001 - 1.035) 1.015 Urine Protein (NEG,<30 MG/DL) NEG Urine Ketones (NEG) NEG Urine Nitrite (NEG) NEG Urine Bilirubin (NEG) NEG Urine Urobilinogen (0.1 - 1.0 EU/dl) 0.2 Ur Leukocyte Esterase (NEG) TRACE H Ur Microscopic SEDIMENT EXAMINED Urine RBC (0 - 5 /HPF) 1-3 Urine WBC (0 - 2 /HPF) 1-3 H Ur Epithelial Cells (NONE,FEW) RARE Urine Bacteria (NEG/NONE) RARE H Urine Mucus (FEW,NONE) RARE Urine Hemoglobin (NEG) TRACE-INTACT H Urine Glucose (N MG/DL) NEG 04/09 04/09 04/08 04/08 1015 0648 1634 1634 Chemistry Sodium (137 - 145 mmol/L) 144 Potassium (3.5 - 5.1 mmol/L) 4.3 Chloride (98 - 107 mmol/L) 101 Carbon Dioxide (22 - 30 mmol/L) 30 Anion Gap (5 - 16) 13 BUN (9 - 20 mg/dL) 63 H Creatinine (0.7 - 1.2 mg/dL) 5.0 H Estimated GFR (>60 ml/min) 12 L BUN/Creatinine Ratio (7 - 25 %) 12.6 Calcium (8.4 - 10.2 mg/dL) 9.0 Cancelled Phosphorus (2.5 - 4.5 mg/dL) 4.4 Magnesium (1.6 - 2.3 mg/dL) 1.6 Troponin I (<0.11 ng/ml) 0.03 0.03 Coagulation D-Dimer High Sensitivty Cancelled 04/08 0653 Chemistry Sodium (137 - 145 mmol/L) 144 Potassium (3.5 - 5.1 mmol/L) 3.9 Chloride (98 - 107 mmol/L) 101 Carbon Dioxide (22 - 30 mmol/L) 30 Anion Gap (5 - 16) 13 BUN (9 - 20 mg/dL) 79 H Creatinine (0.7 - 1.2 mg/dL) 6.3 *H Estimated GFR (>60 ml/min) 9 L BUN/Creatinine Ratio (7 - 25 %) 12.5 Calcium (8.4 - 10.2 mg/dL) 8.9 Phosphorus (2.5 - 4.5 mg/dL) 5.4 H Magnesium (1.6 - 2.3 mg/dL) 1.6 Albumin (3.5 - 5.0 g/dL) 3.3 L Hematology CBC w Diff NO MAN DIFF REQ WBC (4.8 - 10.8 /CUMM) 6.2 RBC (4.70 - 6.10 /CUMM) 3.82 L Hgb (14.0 - 18.0 G/DL) 10.8 L Hct (42 - 52 %) 31.5 L MCV (80.0 - 94.0 FL) 82.7 MCH (27.0 - 31.0 PG) 28.4 MCHC (33.0 - 37.0 G/DL) 34.3 RDW (11.5 - 14.5 %) 14.2 Plt Count (130 - 400 /CUMM) 242 MPV (7.4 - 10.4 FL) 8.5 Gran % (42.2 - 75.2 %) 58.8 Lymphocytes % (20.5 - 51.1 %) 27.2 Monocytes % (1.7 - 9.3 %) 9.5 H Eosinophils % (0 - 5 %) 4.2 Basophils % (0.0 - 2.0 %) 0.3 Absolute Granulocytes (1.4 - 6.5 /CUMM) 3.7 Absolute Lymphocytes (1.2 - 3.4 /CUMM) 1.7 Absolute Monocytes (0.10 - 0.60 /CUMM) 0.6 Absolute Eosinophils (0.0 - 0.7 /CUMM) 0.3 Absolute Basophils (0.0 - 0.2 /CUMM) 0
[2017-04-10 14:52] VITALS: BP 150/74
--- NOTE | 2017-04-10 18:32 | Cons- Urology ---
General Information and HPI Consulting Request Date of Consult: 04/10/17 Requested By: Earlene TORRES,Arian Reason for Consult: urinary retention with renal failure Source of Information: patient, family, old records Exam Limitations: no limitations History of Present Illness: 61 year old with HTN, admitted post diarrhea/dehydration with hypotension. Given IVF and now on diuretics and in overflow retention. 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 Allergies/Medications Allergies: Coded Allergies: cimetidine (From TAGAMET) (UNKNOWN 04/04/17) Home Med List: Fenofibric Acid (Choline) (Fenofibric Acid) 135 MG CAPSULE.DR 1 CAP PO DAILY CHOLESTEROL (Reported) Lisinopril 20 MG TABLET 1 TAB PO DAILY HEART (Reported) Omeprazole 40 MG CAPSULE.DR 1 CAP PO DAILY GI (Reported) Simvastatin (Simvastatin*) 40 MG TABLET 1 TAB PO QPM CHOLESTEROL (Reported) Tamsulosin HCl 0.4 MG CAP.ER.24H 1 CAP PO DAILY PROSTATE (Reported) Current Medications: Current Medications Sig/Stevie Start time Last Medication Dose Route Stop Time Status Admin Acetaminophen 650 MG .STK-MED ONE 04/10 0901 DC PO 04/10 0902 Acetaminophen 650 MG Q6P PRN 04/04 1445 AC 04/10 PO 1440 Acetaminophen 1,000 MG Q6P PRN 04/04 1445 AC IV Amlodipine Besylate 10 MG DAILY 04/09 1000 AC 04/10 PO 0857 Carvedilol 12.5 MG BID 04/10 1330 AC 04/10 PO 1439 Ciprofloxacin 500 MG Q18H 04/09 1000 DC 04/10 PO 04/13 0959 0308 Doxazosin Mesylate 4 MG DAILY 04/10 1715 AC PO Furosemide 20 MG ONCE ONE 04/10 1330 DC 04/10 IV 04/10 1331 1439 Furosemide 40 MG ONCE ONE 04/10 0130 DC 04/10 IV 04/10 0131 0223 Heparin Sodium 5,000 UNIT Q8 04/04 2200 AC 04/10 (Porcine) SC 1441 Hydralazine HCl 10 MG ONCE ONE 04/10 0545 DC 04/10 IV 04/10 0546 0631 Hydralazine HCl 5 MG ONCE ONE 04/10 0245 DC 04/10 IV 04/10 0246 0308 Hydralazine HCl 5 MG ONCE ONE 04/09 2345 DC 04/10 IV 04/09 2346 0004 Hydralazine HCl 25 MG ONCE ONE 04/09 2230 DC 04/09 PO 04/09 2230 2231 Hydralazine HCl 25 MG TID 04/09 2200 AC 04/10 PO 1636 Magnesium Oxide 400 MG ONE ONE 04/10 0130 DC 04/10 PO 04/10 0131 0223 Moxifloxacin HCl 400 MG DAILY 04/11 1000 CAN PO Patient Medication 1 ED ONE ONE 04/10 1200 DC Teaching ED 04/10 1201 Tamsulosin HCl 0.8 MG DAILY 04/11 1600 AC PO Tamsulosin HCl 0.4 MG ONCE ONE 04/10 1730 DC PO 04/10 1731 Tamsulosin HCl 0.4 MG DAILY 04/04 1607 DC 04/10 PO 0857 Past History Medical History Blood Transfusion Hx: No Neurological: migraine EENT: NONE Cardiovascular: hypertension, hyperlipidemia Respiratory: obstructive sleep apnea Gastrointestinal: GERD Hepatic: NONE Renal: NONE (kidney cyst) Musculoskeletal: osteoarthritis Psychiatric: NONE Endocrine: NONE Blood Disorders: NONE Cancer(s): NONE 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 Home Who Do You Live With? spouse Smoking Status: Former Smoker ETOH Use: occasional use Illicit Drug Use: marijuana, Last use of Marijuana 1 month ago Functional Ability ADLs Independent: dressing, eating, toileting, bathing. 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 EENTM: Denies: no symptoms. Cardiovascular: Denies: no symptoms. Respiratory: Reports: short of breath. GI: Reports: bloating, diarrhea. Genitourinary: Reports: frequency, hesitation. Musculoskeletal: Denies: no symptoms. Skin: Denies: no symptoms. Exam & Diagnostic Data Vital Signs and I&O Vital Signs Date Time Temp Pulse Resp B/P B/P Pulse O2 O2 Flow FiO2 Mean Ox Delivery Rate 04/10 1732 94 Nasal 2.0L Cannula 04/10 1636 150/76 04/10 1452 98.6 97 20 150/74 97 Nasal 2.0L Cannula 04/10 1439 154/78 04/10 0858 174/74 04/10 0857 174/74 04/10 0857 174/74 04/10 0809 94 Nasal 2.0L Cannula 04/10 0807 174/74 04/10 0631 98 200/80 04/10 0542 98.6 98 20 200/80 96 Nasal 2.5L Cannula 04/10 0310 105 97 04/10 0308 93 200/96 04/10 0215 93 200/96 04/10 0004 92 200/90 04/09 2335 92 200/90 04/09 2231 92 180/90 04/09 2214 98.5 90 22 180/90 95 Nasal Cannula 04/09 2211 90 93 04/09 2108 Nasal 2.0L Cannula 04/09 2045 90 178/96 Intake & Output 04/10 1600 04/10 0800 04/10 0000 04/09 1600 04/09 0800 04/09 0000 Intake Total 420 332 99 3158 Output Total 700 885 714 1647 750 1003 Balance -280 -110 -200 -1635 250 -1003 Intake, IV 20 1000 Intake, Oral 400 240 90 Number 1 3 Bowel Movements Output, Stool 3 Output, Urine 700 731 880 0012 750 1000 Patient 228 lb 244 lb Weight Weight Bed scale Measurement Method Physical Exam General Appearance: well developed/nourished, mild distress Head: atraumatic Eyes: Bilateral: normal appearance. Ears, Nose, Throat: normal pharynx Respiratory: normal breath sounds Cardiovascular: regular rate/rhythm Gastrointestinal: normal bowel sounds, soft, distention, bladder percussible 6cm above SP. Rectal: normal exam Back: no vertebral tenderness Extremities: normal inspection Skin: intact Reproductive: Normal male genitalia Last 24 Hours of Labs: Laboratory Tests 04/10 04/10 0900 0644 Chemistry Sodium (137 - 145 mmol/L) 142 Potassium (3.5 - 5.1 mmol/L) 4.1 Chloride (98 - 107 mmol/L) 100 Carbon Dioxide (22 - 30 mmol/L) 26 Anion Gap (5 - 16) 17 H BUN (9 - 20 mg/dL) 55 H Creatinine (0.7 - 1.2 mg/dL) 4.6 H Estimated GFR (>60 ml/min) 13 L BUN/Creatinine Ratio (7 - 25 %) 12.0 Magnesium (1.6 - 2.3 mg/dL) 1.5 L Prot Electrophoresis Pending Total Protein (PEP) Pending Albumin % (PEP) Pending Wapax-3-Fkyzpzhae Pending Jmofl-9-Eolgixzyg Pending Qzgf-4-Wlprlhei Pending Mpvs-4-Liwyvhlh Pending Gamma Globulins Pending Abnorm Protein Band 1 Pending Abnorm Protein Band 2 Pending Abnorm Protein Band 3 Pending Imaging Results: PATIENT: TONNY ALBRIGHT SR PRESENT AGE: 61 PATIENT ACCOUNT NO: [id number] : 53 LOCATION: [facility] ORDERING PHYSICIAN: Milind Cartwright MD SERVICE DATE: 04/04/17 EXAM TYPE: US - US-RENAL/KIDNEY EXAMINATION: US RETROPERITONEAL COMPLETE (RENAL) CLINICAL INFORMATION: Low urine output. Acute kidney injury. COMPARISON: None TECHNIQUE: Real-time imaging of the kidneys and bladder. FINDINGS: RIGHT KIDNEY: 12.2 x 5.6 cm (SAG x AP x TRV). The kidney is normal in size, contour, and echogenicity. Renal cortical thickness is normal. There is a 3.5 cm upper pole simple cyst. No calculi or solid parenchymal lesions. No hydronephrosis. LEFT KIDNEY: 8.7 x 4.9 x 5.3 cm (SAG x AP x TRV). The kidney is normal in size, contour, and echogenicity. Renal cortical thickness is normal. No calculi or focal parenchymal lesions. No hydronephrosis. BLADDER: Urinary bladder is empty. Neither ureteral jet demonstrated. Prevoid bladder volume is 11 mL. Postvoid the bladder is empty. The prostate is mildly enlarged, 4 cm in diameter. IMPRESSION: No hydronephrosis. No calculi seen. Mild prostatomegaly. Assessment/Plan Assessment/Plan pt with dehydration exacerbating ARF with pre-renal causes on top of HTN. Additionally, pt with urnary retention/overflow incontinence with bladder scan of 1liter. /complicated solano placement with 18fr coude-drained 1100cc immediately. increase flomax to BID or 2/hs (total flomax 0.8mg/day) as long as SBP >or = 100. monitor I and O closely for 48 hours for POST OBSTRUCTIVE diuresis (match total output/shift with 1/2 volume replacement of IVF for next shift). allow free access to water PO. Monitor BEP daily until baseline. Copies To: Lucian Tidwell MD Consult Acknowledgment - Thank you for your consult request. Attending MD Review Statement Attending Statement Attending MD Statement: examined this patient, discuss w/resident/PA/FILER FINISH Attending Assessment/Plan: see assess/plan: voiding trial prior to dc home. F/U in my office 2-4 weeks after discharge.
[2017-04-10 20:01] VITALS: BP 156/90
[2017-04-10 22:40] VITALS: BP 142/86
[2017-04-11 06:00] VITALS: BP 132/64
--- NOTE | 2017-04-11 07:53 | PN- Housestaff ---
See Addendum Subjective Follow-up For: Hypertensive urgency and pulmonary edema Campylobacter gastroenteritis Possible pneumonia CÉSAR Obstructive Uropathy Tele-Events Since Last Visit: Normal sinus rhythm heart rate 79-93 Subjective: Patient was seen and examined today. Patient reports some mild suprapubic discomfort. Patient denies fever, chills, hematuria, nausea/vomitting, chest pain, sob. Patient notes a mild nonproductive cough. Patient states he had one small bowel movement with hard stool. Denies diarrhea, melena or bright red blood per rectum. Patient had a solano placed yesterday by Dr. Tidwell without any issues. Review of Systems Constitutional: Reports: no symptoms. Cardiovascular: Reports: no symptoms. Respiratory: Reports: see HPI. Gastrointestinal: Reports: no symptoms. Genitourinary: Reports: see HPI. Musculoskeletal: Reports: no symptoms. Neurological/Psychological: Reports: no symptoms. Hematologic/Endocrine: Reports: no symptoms. Objective Last 24 Hrs of Vital Signs/I&O Vital Signs Date Time Temp Pulse Resp B/P B/P Pulse O2 O2 Flow FiO2 Mean Ox Delivery Rate 04/11 08 91 146/54 04/11 0822 91 146/54 04/11 0821 91 146/54 04/11 0821 91 146/54 04/11 0800 Nasal 2.0L Cannula 04/11 0600 98.5 91 18 132/64 96 04/10 2240 98.9 98 20 142/86 93 04/10 2238 94 148/96 04/10 2238 94 148/86 04/10 2145 94 92 04/10 2105 Room Air 04/10 2015 95 156/90 04/10 2000 97.5 95 19 156/90 92 04/10 1732 94 Nasal 2.0L Cannula 04/10 1636 150/76 04/10 1452 98.6 97 20 150/74 97 Nasal 2.0L Cannula 04/10 1439 154/78 Intake & Output 04/11 1600 04/11 0800 04/11 0000 Intake Total 475 Output Total 850 2600 Balance -375 -2600 Intake, Oral 475 Output, Urine 850 2600 Physical Exam General Appearance: Alert, Oriented X3, Cooperative, No Acute Distress HEENT: Atraumatic, PERRLA, EOMI, Mucous Membr. moist/pink Cardiovascular: Regular Rate, Normal S1, Normal S2, No Murmurs Lungs: Clear to Auscultation, Normal Air Movement Abdomen: Normal Bowel Sounds, Soft, No Tenderness, distended Neurological: Normal Gait, Normal Speech Extremities: No Clubbing, No Cyanosis, No Edema, Normal Pulses, No Tenderness/ Swelling Current Medications: Current Medications Sig/Stevie Start time Last Medication Dose Route Stop Time Status Admin Acetaminophen 650 MG .STK-MED ONE 04/10 2014 DC PO 04/10 2015 Acetaminophen 650 MG .STK-MED ONE 04/10 1440 DC PO 04/10 1441 Acetaminophen 650 MG Q6P PRN 04/04 1445 AC 04/10 PO 2016 Acetaminophen 1,000 MG Q6P PRN 04/04 1445 AC IV Amlodipine Besylate 10 MG DAILY 04/09 1000 AC 04/11 PO 0822 Carvedilol 12.5 MG BID 04/10 1330 AC 04/11 PO 0822 Ciprofloxacin 500 MG Q18H 04/09 1000 DC 04/10 PO 04/13 0959 0308 Doxazosin Mesylate 4 MG DAILY 04/10 1715 04/11 PO 0821 Furosemide 20 MG ONCE ONE 04/10 1330 DC 04/10 IV 04/10 1331 1439 Heparin Sodium 5,000 UNIT Q8 04/04 2200 AC 04/11 (Porcine) SC 0746 Hydralazine HCl 25 MG TID 04/09 2200 AC 04/11 PO 0821 Moxifloxacin HCl 400 MG DAILY 04/11 1000 CAN PO Patient Medication 1 ED ONE ONE 04/10 1200 LA Teaching ED 04/10 1201 Tamsulosin HCl 0.8 MG DAILY 04/11 1600 CAN PO Tamsulosin HCl 0.4 MG BID 04/11 1000 AC 04/11 PO 0821 Tamsulosin HCl 0.4 MG ONCE ONE 04/10 1730 DC 04/10 PO 04/10 1732015 Tamsulosin HCl 0.4 MG DAILY 04/04 1607 DC 04/10 PO 0857 Last 24 Hrs of Lab/Jian Results Last 24 Hrs of Labs/Mics: Laboratory Tests 04/11/17 0620: Anion Gap 16, Estimated GFR 14 L, BUN/Creatinine Ratio 13.0, CBC w Diff NO MAN DIFF REQ, RBC 3.94 L, MCV 83.8, MCH 27.6, MCHC 33.0, RDW 14.1, MPV 8.3, Gran % 83.9 H, Lymphocytes % 7.9 L, Monocytes % 6.6, Eosinophils % 1.4, Basophils % 0.2, Absolute Granulocytes 12.0 H, Absolute Lymphocytes 1.1 L, Absolute Monocytes 1.0 H, Absolute Eosinophils 0.2, Absolute Basophils 0 Microbiology 04/11 1036 URINE ROUT: Urine Culture - COLB Lines/Diet/Fluids Catheters/Tubes: solano Solano Still Needed? Yes Assessment/Plan Assessment: Mr. Morales is a 61-year-old male w/ PMH of HTN, HLD, GERD, presented to the emergency department with CC of multiple episodes of diarrhea and abdominal pain starting Thursday 03/30 after a eating out with family members. Patient started to have watery diarrhea the night after dinner on 03/30, and had been ongoing since then. Patient went to walkin clinic and was told to maintain hydration with Gatorade as he was diagnosed with viral syndrome. However, he felt the symptoms did not improve at all. He tried to eat a toast and scrambled egg on and could only finish part of the meal, and have to go to restroom repeatedly with watery diarrhea. Patient felt lightheaded and exertional dyspnea and presented to ER. Assessment: Patient initially presented this admission with hypotension, CÉSAR with creatinine of 15, and acute diarrhea. Patient was subsequently given IV fluid hydration and seen by nephrology. Patient was found to have campylobacter in his stool culture and was started on ciprofloxacin (renally dosed). Patient two days prior, had elevated blood pressure with systolics in the 200s and diastolic in the 100s. Patient was subsequently transferred to telemetry for hypertensive urgency and pulmonary edema seen on CXR. Patient received multiple doses of IV lasix after clearing with nephrology and cardiology was consulted. Patient had an ECHO which was normal and serial ECG and trops were negative. Patient received multiple pushes of IV hydralazine and PO hydralazine while continue PO amlodipine. Patient had a repeat CXR on 04/09 evening which showed an increased opacity on the left indicative of asymmetric pulmonary edema vs an infectious/inflammatory process. Patient was given more IV lasix on 04/10 and started on carvedilol 12.5mg. Patient's blood pressure has decreased to the 130s. Patient has been experiencing abdominal discomfort and had a bladder scan on 04/10 showing a PVR of >700cc. Patient was seen by Dr. Tidwell in the evening on 04/10 and had a solano placed. Patient has a large volume of urine. Patient's WBC is elevated today with no fever and nonproductive cough. Patient had some suprapubic tenderness and may have a urinary tract infection secondary to urinary retention. Will check for UTI today. Patient is being seen by nephrology. His baseline creatinine is 1.3. Patient's creatinine today has decreased slightly to 4.4. Problems: 1. Hypertensive Urgency 2. Obstructive Uropathy 3. CÉSAR 4. Campylobacter gastroenteritis 5. Questionable Pneumonia Plan: Admitted to telemetry Continue to monitor on tele Continue antihypertensives: carvedilol, amlodipine, hydralazine Continue to diurese as necessary Continue to monitor BEP - for renal function Continue to monitor CBC Follow up urinalysis and urine culture Cardiology and nephrology consulted. Appreciate recommendations. Urology consulted. Patient currently has a solano in place Patient will require a voiding trial tomorrow morning. Continue tamsulosin at increased dose of 0.4mg BID DVT PPX: heparin SC Diet: Heart healthy diet Code: full code Problem List: 1. Hypertensive urgency 2. Obstructive uropathy 3. CÉSAR (acute kidney injury) Pain Ratin Pain Location: abdomen Pain Goal: Pain 4 or less Pain Plan: tylenol PRN Tomorrow's Labs & Rationales: cbc bep
[2017-04-11 08:37] LABS: ABSOLUTE BASOPHIL COUNT 0 /CUMM (0.0-0.2); ABSOLUTE EOSINOPHIL COUNT 0.2 /CUMM (0.0-0.7); ABSOLUTE LYMPH COUNT 1.1 /CUMM (1.2-3.4); BASOPHIL % 0.2 % (0.0-2.0); EOSINOPHIL % 1.4 % (0-5); GRANULOCYTE % 83.9 % (42.2-75.2); MEAN CORPUSCULAR HGB 27.6 PG (27.0-31.0); MEAN CORPUSCULAR VOLUME 83.8 FL (80.0-94.0); MEAN PLATELET VOLUME 8.3 FL (7.4-10.4); PLATELET COUNT 290 /CUMM (130-400); RBC DISTRIBUTION WIDTH 14.1 % (11.5-14.5); RED BLOOD CELL CT 3.94 /CUMM (4.70-6.10)
[2017-04-11 09:00] LABS: WHITE BLOOD CELL COUNT 14.3 /CUMM (4.8-10.8)
--- NOTE | 2017-04-11 09:21 | PN- Nephrology ---
Assessment/Plan Nephrology Assessment: Only slight improvment in creatinine but may have been obstructed for most of day. As noted baseline creatinine of 1.3 in December so would still expect much better recovery. IEP was canceled by lab so SPEP reordered yesterday. Suggestion: Continue off IVs but no diuretics. Follow numbers with [facility]. Subjective Subjective: Had urinary retention with 700 cc in bladder according to scan, now with O[facility]. Feels better today. Objective Vital Signs and I&Os Vital Signs Date Time Temp Pulse Resp B/P B/P Pulse O2 O2 Flow FiO2 Mean Ox Delivery Rate 04/11 821 91 146/54 04/11 08 91 146/54 04/11 08 91 146/54 04/11 08 91 146/54 04/11 0600 98.5 91 18 132/64 96 04/10 2240 98.9 98 20 142/86 93 04/10 2238 94 148/96 04/10 2238 94 148/86 04/10 2145 94 92 04/10 2105 Room Air 04/10 2015 95 156/90 04/10 2001 97.5 95 19 156/90 92 04/10 1732 94 Nasal 2.0L Cannula 04/10 1636 150/76 04/10 1452 98.6 97 20 150/74 97 Nasal 2.0L Cannula 04/10 1439 154/78 Intake & Output 04/11 1600 04/11 0400 04/10 1600 04/10 0400 04/09 1600 04/09 0400 Intake Total 793 756 5678 Output Total 850 2600 5187 631 2246 1003 Balance -375 -2600 -390 -200 -1385 -1003 Intake, IV 20 1000 Intake, Oral 475 640 90 Number 1 3 Bowel Movements Output, Stool 3 Output, Urine 850 2600 8651 687 2698 1000 Patient 228 lb 244 lb Weight Weight Bed scale Measurement Method Physical Exam: NAD VS as above Lungs: clear CV:no rub Abd: nontender Exts: no edema Neuro: A&O Current Medications: Current Medications Sig/Stevie Start time Last Medication Dose Route Stop Time Status Admin Acetaminophen 650 MG .STK-MED ONE 04/10 2013 DC PO 04/10 2014 Acetaminophen 650 MG .STK-MED ONE 04/10 1440 DC PO 04/10 1441 Acetaminophen 650 MG Q6P PRN 02/15 1445 AC 04/10 PO 2016 Acetaminophen 1,000 MG Q6P PRN 04/04 1445 AC IV Amlodipine Besylate 10 MG DAILY 04/09 1000 AC 04/11 PO 08 Carvedilol 12.5 MG BID 04/10 1330 AC 04/11 PO 0822 Ciprofloxacin 500 MG Q18H 04/09 1000 DC 04/10 PO 04/13 0959 0308 Doxazosin Mesylate 4 MG DAILY 04/10 1715 AC 04/11 PO 0821 Furosemide 20 MG ONCE ONE 04/10 1330 DC 04/10 IV 04/10 1331 1439 Heparin Sodium 5,000 UNIT Q8 04/04 2200 AC 04/11 (Porcine) SC 0746 Hydralazine HCl 25 MG TID 04/09 2200 AC 04/11 PO 08 Moxifloxacin HCl 400 MG DAILY 04/11 1000 CAN PO Patient Medication 1 ED ONE ONE 04/10 1200 DC Teaching ED 04/10 1201 Tamsulosin HCl 0.8 MG DAILY 04/11 1600 CAN PO Tamsulosin HCl 0.4 MG BID 04/11 1000 AC 04/11 PO 0821 Tamsulosin HCl 0.4 MG ONCE ONE 04/10 1730 DC 04/10 PO 04/10 1732015 Tamsulosin HCl 0.4 MG DAILY 04/04 1607 DC 04/10 PO 0857 Results Pertinent Lab Results: Laboratory Tests 04/11 04/10 04/10 0620 0900 0644 Chemistry Sodium (137 - 145 mmol/L) 141 142 Potassium (3.5 - 5.1 mmol/L) 4.6 4.1 Chloride (98 - 107 mmol/L) 101 100 Carbon Dioxide (22 - 30 mmol/L) 25 26 Anion Gap (5 - 16) 16 17 H BUN (9 - 20 mg/dL) 57 H 55 H Creatinine (0.7 - 1.2 mg/dL) 4.4 H 4.6 H Estimated GFR (>60 ml/min) 14 L 13 L BUN/Creatinine Ratio (7 - 25 %) 13.0 12.0 Magnesium (1.6 - 2.3 mg/dL) 1.5 L Prot Electrophoresis Pending Total Protein (PEP) Pending Albumin % (PEP) Pending Dgfoa-6-Idmhujrjm Pending Jmsgv-4-Ukxoeaceg Pending Uvwj-0-Wbcvnlhb Pending Mnto-9-Wbhxrfro Pending Gamma Globulins Pending Abnorm Protein Band 1 Pending Abnorm Protein Band 2 Pending Abnorm Protein Band 3 Pending Hematology CBC w Diff NO MAN DIFF REQ WBC (4.8 - 10.8 /CUMM) 14.3 H RBC (4.70 - 6.10 /CUMM) 3.94 L Hgb (14.0 - 18.0 G/DL) 10.9 L Hct (42 - 52 %) 33.0 L MCV (80.0 - 94.0 FL) 83.8 MCH (27.0 - 31.0 PG) 27.6 MCHC (33.0 - 37.0 G/DL) 33.0 RDW (11.5 - 14.5 %) 14.1 Plt Count (130 - 400 /CUMM) 290 MPV (7.4 - 10.4 FL) 8.3 Gran % (42.2 - 75.2 %) 83.9 H Lymphocytes % (20.5 - 51.1 %) 7.9 L Monocytes % (1.7 - 9.3 %) 6.6 Eosinophils % (0 - 5 %) 1.4 Basophils % (0.0 - 2.0 %) 0.2 Absolute Granulocytes (1.4 - 6.5 /CUMM) 12.0 H Absolute Lymphocytes (1.2 - 3.4 /CUMM) 1.1 L Absolute Monocytes (0.10 - 0.60 /CUMM) 1.0 H Absolute Eosinophils (0.0 - 0.7 /CUMM) 0.2 Absolute Basophils (0.0 - 0.2 /CUMM) 0 04/09 04/09 04/09 1803 1730 1430 Chemistry Sodium (137 - 145 mmol/L) 140 Potassium (3.5 - 5.1 mmol/L) 4.5 Chloride (98 - 107 mmol/L) 97 L Carbon Dioxide (22 - 30 mmol/L) 27 Anion Gap (5 - 16) 16 BUN (9 - 20 mg/dL) 58 H Creatinine (0.7 - 1.2 mg/dL) 4.7 H Estimated GFR (>60 ml/min) 13 L BUN/Creatinine Ratio (7 - 25 %) 12.3 Phosphorus (2.5 - 4.5 mg/dL) 4.2 Magnesium (1.6 - 2.3 mg/dL) 1.5 L Troponin I (<0.11 ng/ml) 0.04 Urines Urine Color (YEL,AMB,STR) STRAW Urine Clarity (CLEAR) CLEAR Urine pH (5.0 - 8.0) 7.5 Ur Specific [place] (1.001 - 1.035) 1.015 Urine Protein (NEG,<30 MG/DL) NEG Urine Ketones (NEG) NEG Urine Nitrite (NEG) NEG Urine Bilirubin (NEG) NEG Urine Urobilinogen (0.1 - 1.0 EU/dl) 0.2 Ur Leukocyte Esterase (NEG) TRACE H Ur Microscopic SEDIMENT EXAMINED Urine RBC (0 - 5 /HPF) 1-3 Urine WBC (0 - 2 /HPF) 1-3 H Ur Epithelial Cells (NONE,FEW) RARE Urine Bacteria (NEG/NONE) RARE H Urine Mucus (FEW,NONE) RARE Urine Hemoglobin (NEG) TRACE-INTACT H Urine Glucose (N MG/DL) NEG 04/09 04/09 04/08 04/08 1015 0648 1634 1634 Chemistry Sodium (137 - 145 mmol/L) 144 Potassium (3.5 - 5.1 mmol/L) 4.3 Chloride (98 - 107 mmol/L) 101 Carbon Dioxide (22 - 30 mmol/L) 30 Anion Gap (5 - 16) 13 BUN (9 - 20 mg/dL) 63 H Creatinine (0.7 - 1.2 mg/dL) 5.0 H Estimated GFR (>60 ml/min) 12 L BUN/Creatinine Ratio (7 - 25 %) 12.6 Calcium (8.4 - 10.2 mg/dL) 9.0 Cancelled Phosphorus (2.5 - 4.5 mg/dL) 4.4 Magnesium (1.6 - 2.3 mg/dL) 1.6 Troponin I (<0.11 ng/ml) 0.03 0.03 Coagulation D-Dimer High Sensitivty Cancelled
[2017-04-11 14:33] VITALS: BP 126/50
[2017-04-11 22:02] VITALS: BP 130/70
[2017-04-12 06:30] VITALS: BP 140/62
--- NOTE | 2017-04-12 07:36 | PN- Urology ---
Surgical Brief Attending Note Brief Attending Note: Pt with increase in WBC: Ucx pending. U/O adequate with SLOW resolution of renal function based on creatinine: would maintain hydration-period of post- obstructive diuresis is no longer evident. Would NOT remove solano at this time until wbc/sepsis resolved, and until creatinine is at baseline. Continue flomax.
[2017-04-12] MEDS ORDERED: TAMSULOSIN HCL0.4 M1 PO (07:59)
[2017-04-12] MEDS ORDERED: NORVASC10 M1 PO (07:59)
--- NOTE | 2017-04-12 08:06 | PN- Housestaff ---
Mulugeta TORRES,Stefanie 04/12/17 0806: Subjective Follow-up For: Hypertensive urgency and pulmonary edema Campylobacter gastroenteritis CÉSAR Obstructive Uropathy Tele-Events Since Last Visit: Normal Sinus Rhythm Subjective: Patient was seen and examined today. Denies abdominal pain/discomfort. Patient denies fever, chills, hematuria/dysuria, chest pain, shortness of breath. Patient states he is unable to empty his bladder compeltely however continues to have solano re-inserted after it was removed this morning. No acute events overnight. Review of Systems Constitutional: Reports: see HPI. Objective Last 24 Hrs of Vital Signs/I&O Vital Signs Date Time Temp Pulse Resp B/P B/P Pulse O2 O2 Flow FiO2 Mean Ox Delivery Rate 04/12 1451 97.6 88 20 136/60 94 Room Air 04/12 0911 97 140/62 04/12 0911 97 140/62 04/12 0911 97 140/62 04/12 0630 97.5 97 20 140/62 92 04/11 2202 97.9 91 20 130/70 92 04/11 2156 91 140/82 04/11 2154 91 140/82 Intake & Output 04/12 1600 04/12 0800 04/12 0000 Intake Total 600 600 400 Output Total 975 775 550 Balance -375 -175 -150 Intake, Oral 600 600 400 Output, Urine 975 775 550 Patient 224 lb Weight Weight Bed scale Measurement Method Physical Exam General Appearance: Alert, Oriented X3, Cooperative Other Physical Findings: HEENT: Atraumatic, PERRLA, EOMI, Mucous Membr. moist/pink Cardiovascular: Regular Rate, Normal S1, Normal S2, No Murmurs Lungs: Clear to Auscultation, Normal Air Movement Abdomen: Normal Bowel Sounds, Soft, No Tenderness, distended Neurological: Normal Gait, Normal Speech Extremities: No Clubbing, No Cyanosis, No Edema, Normal Pulses, No Tenderness/ Swelling Current Medications: Current Medications Sig/Stevie Start time Last Medication Dose Route Stop Time Status Admin Acetaminophen 650 MG Q6P PRN 04/04 1445 AC 04/10 PO 2016 Acetaminophen 1,000 MG Q6P PRN 04/04 1445 AC IV Amlodipine Besylate 10 MG DAILY 04/09 1000 AC 04/12 PO 09 Carvedilol 12.5 MG BID 04/10 1330 AC 04/12 PO 0911 Doxazosin Mesylate 4 MG DAILY 04/10 1715 AC 04/12 PO 0911 Finasteride 5 MG DAILY 04/12 1730 AC PO Heparin Sodium 5,000 UNIT Q8 04/04 2200 AC 04/12 (Porcine) SC 1259 Omeprazole 20 MG DAILY AC 04/12 0700 AC 04/12 PO 0533 Patient Medication 1 ED ONE ONE 04/12 1430 DC 04/12 Teaching ED 04/12 1431 1454 Tamsulosin HCl 0.4 MG BID 04/11 1000 AC 04/12 PO 0911 Last 24 Hrs of Lab/Jian Results Last 24 Hrs of Labs/Mics: Laboratory Tests 04/12/17 0619: Anion Gap 13, Estimated GFR 17 L, BUN/Creatinine Ratio 15.7, CBC w Diff NO MAN DIFF REQ, RBC 3.95 L, MCV 83.7, MCH 28.1, MCHC 33.6, RDW 13.9, MPV 8.4, Gran % 77.1 H, Lymphocytes % 12.9 L, Monocytes % 8.1, Eosinophils % 1.8, Basophils % 0.1, Absolute Granulocytes 8.8 H, Absolute Lymphocytes 1.5, Absolute Monocytes 0.9 H, Absolute Eosinophils 0.2, Absolute Basophils 0 Assessment/Plan Assessment: Mr. Morales is a 61-year-old male w/ PMH of HTN, HLD, GERD, presented to the emergency department with CC of multiple episodes of diarrhea and abdominal pain starting Thursday 03/30 after a eating out with family members. Patient started to have watery diarrhea the night after dinner on 03/30, and had been ongoing since then. Patient went to walkin clinic and was told to maintain hydration with Gatorade as he was diagnosed with viral syndrome. However, he felt the symptoms did not improve at all. He tried to eat a toast and scrambled egg on and could only finish part of the meal, and have to go to restroom repeatedly with watery diarrhea. Patient felt lightheaded and exertional dyspnea and presented to ER. Assessment: Patient initially presented this admission with hypotension, CÉSAR with creatinine of 15, and acute diarrhea. Patient was subsequently given IV fluid hydration and seen by nephrology. Patient was found to have campylobacter in his stool culture and was started on ciprofloxacin (renally dosed). Patient two days prior, had elevated blood pressure with systolics in the 200s and diastolic in the 100s. Patient was subsequently transferred to telemetry for hypertensive urgency and pulmonary edema seen on CXR. Patient received multiple doses of IV lasix after clearing with nephrology and cardiology was consulted. Patient had an ECHO which was normal and serial ECG and trops were negative. Patient received multiple pushes of IV hydralazine and PO hydralazine while continue PO amlodipine. Patient had a repeat CXR on 04/09 evening which showed an increased opacity on the left indicative of asymmetric pulmonary edema vs an infectious/inflammatory process. Patient was given more IV lasix on 04/10 and started on carvedilol 12.5mg. Patient's blood pressure has decreased to the 130s. Patient has been experiencing abdominal discomfort and had a bladder scan on 04/10 showing a PVR of >700cc. Patient was seen by Dr. Tidwell in the evening on 04/10 and had a solano placed. Patient has a large volume of urine. Patient's WBC has decreased and patient remains with no fever and nonproductive cough. Patient's suprapubic tenderness appears to have resolved. Patient is being seen by nephrology. His baseline creatinine is 1.3. Patient's creatinine today has decreased to 3.7. Patient's solano was removed today for a voiding trial. Patient continues to have urinary retention. Patient will continue to have PVR to monitor for obstruction. Repeat creatinine checked tomorrow. Patient may require a solano prior to being discharge tomorrow. Patient requires close follow up with urology. Problems: 1. Hypertensive Urgency 2. Obstructive Uropathy 3. CÉSAR 4. Campylobacter gastroenteritis 5. Questionable Pneumonia Plan: Admitted to telemetry Continue to monitor on tele Continue antihypertensives: carvedilol, amlodipine, hydralazine Continue to monitor BEP - for renal function Continue to monitor CBC Follow up urinalysis and urine culture Cardiology and nephrology consulted. Appreciate recommendations. Urology consulted. Patient may require a solano prior to discharge. Continue tamsulosin at increased dose of 0.4mg BID DVT PPX: heparin SC Diet: Heart healthy diet Code: full code Problem List: 1. CÉSAR (acute kidney injury) 2. Obstructive uropathy 3. Hypertensive urgency 4. Campylobacter gastroenteritis Pain Ratin Pain Location: suprapubic Pain Goal: Remain pain free Pain Plan: tylenol PRN Tomorrow's Labs & Rationales: bep - creatinine wbc - leukocytosis Keagan Garcia MD 04/12/17 1802: Attending MD Review Statement Attending Statement Attending MD Statement: examined this patient, discuss w/resident/PA/HELPER DRIVER, agreed w/resident/PA/HELPER DRIVER, reviewed EMR data (avail), discussed with nursing, amended to note Attending Assessment/Plan: The patient was seen and discussed with house staff. Solano was removed in morning as per original discussion with Urology to do voiding trial. Dr. Tidwell had left a note early in morning indicating not to remove solano yet. The patient still has 300+ PVR on bladder US. The resident discussed with Dr. Tidwell and will leave solano out today. Pending urine PVR and serum Cr in morning will make decision to replace solano. If needs replaced will need to use Lidocaine jelly on catheter as Dr. Tidwell did. Will follow-up BEP in morning and check PVR.
[2017-04-12 08:10] LABS: ABSOLUTE BASOPHIL COUNT 0 /CUMM (0.0-0.2); ABSOLUTE EOSINOPHIL COUNT 0.2 /CUMM (0.0-0.7); ABSOLUTE GRANULOCYTE CT 8.8 /CUMM (1.4-6.5); ABSOLUTE LYMPH COUNT 1.5 /CUMM (1.2-3.4); ABSOLUTE MONOCYTE COUNT 0.9 /CUMM (0.10-0.60); BASOPHIL % 0.1 % (0.0-2.0); EOSINOPHIL % 1.8 % (0-5); GRANULOCYTE % 77.1 % (42.2-75.2); HEMATOCRIT 33.1 % (42-52); MEAN CORPUSCULAR HGB 28.1 PG (27.0-31.0); MEAN CORPUSCULAR HGB CONC 33.6 G/DL (33.0-37.0); MEAN CORPUSCULAR VOLUME 83.7 FL (80.0-94.0); MEAN PLATELET VOLUME 8.4 FL (7.4-10.4); PLATELET COUNT 302 /CUMM (130-400); RBC DISTRIBUTION WIDTH 13.9 % (11.5-14.5); RED BLOOD CELL CT 3.95 /CUMM (4.70-6.10); WHITE BLOOD CELL COUNT 11.4 /CUMM (4.8-10.8)
--- NOTE | 2017-04-12 12:13 | PN- Nephrology ---
Assessment/Plan Nephrology Assessment: Creatinine better after Osorio, not near to baseline. Suggestion: Will need to be watched closely for recurrent retention. No IVF as seesm to be taking adeequate PO. Recheck labs in AM. If has signficant retention will need Osorio back. Subjective Subjective: Osorio taken out and patient having some trouble with urination. He states PVR was 300 cc. Objective Vital Signs and I&Os Vital Signs Date Time Temp Pulse Resp B/P B/P Pulse O2 O2 Flow FiO2 Mean Ox Delivery Rate 04/12 0911 97 140/62 04/12 0911 97 140/62 04/12 0911 97 140/62 04/12 0630 97.5 97 20 140/62 92 04/11 2202 97.9 91 20 130/70 92 04/11 2156 91 140/82 04/11 2154 91 140/82 04/11 1433 97.9 83 20 126/50 96 Nasal 2.0L Cannula Intake & Output 04/12 1600 04/12 0400 04/11 1600 04/11 0400 04/10 1600 04/10 0400 Intake Total 600 400 925 660 Output Total 776 786 9044 2600 1050 200 Balance -175 -150 -225 -2600 -390 -200 Intake, IV 20 Intake, Oral 600 400 925 640 Number 3 1 Bowel Movements Output, Urine 841 803 1801 2600 1050 200 Patient 224 lb 228 lb Weight Weight Bed scale Bed scale Measurement Method Physical Exam: NAD VS as above Lungs: clear CV:no rub Abd: nontender Exts: no edema Neuro: A&O Current Medications: Current Medications Sig/Stevie Start time Last Medication Dose Route Stop Time Status Admin Acetaminophen 650 MG Q6P PRN 04/04 1445 AC 04/10 PO 2016 Acetaminophen 1,000 MG Q6P PRN 04/04 1445 AC IV Amlodipine Besylate 10 MG DAILY 04/09 1000 AC 04/12 PO 0911 Carvedilol 12.5 MG BID 04/10 1330 AC 04/12 PO 0911 Doxazosin Mesylate 4 MG DAILY 04/10 1715 AC 04/12 PO 0911 Heparin Sodium 5,000 UNIT Q8 04/04 2200 AC 04/12 (Porcine) [place] 0532 Hydralazine HCl 25 MG BID 04/11 220 CAN PO Omeprazole 20 MG DAILY AC 04/12 0700 AC 04/12 PO 0533 Tamsulosin HCl 0.4 MG BID 04/11 1000 AC 04/12 PO 0911 Results Pertinent Lab Results: Laboratory Tests 04/12 04/11 0619 1050 Chemistry Sodium (137 - 145 mmol/L) 140 Potassium (3.5 - 5.1 mmol/L) 4.7 Chloride (98 - 107 mmol/L) 103 Carbon Dioxide (22 - 30 mmol/L) 24 Anion Gap (5 - 16) 13 BUN (9 - 20 mg/dL) 58 H Creatinine (0.7 - 1.2 mg/dL) 3.7 H Estimated GFR (>60 ml/min) 17 L BUN/Creatinine Ratio (7 - 25 %) 15.7 Hematology CBC w Diff NO MAN DIFF REQ WBC (4.8 - 10.8 /CUMM) 11.4 H RBC (4.70 - 6.10 /CUMM) 3.95 L Hgb (14.0 - 18.0 G/DL) 11.1 L Hct (42 - 52 %) 33.1 L MCV (80.0 - 94.0 FL) 83.7 MCH (27.0 - 31.0 PG) 28.1 MCHC (33.0 - 37.0 G/DL) 33.6 RDW (11.5 - 14.5 %) 13.9 Plt Count (130 - 400 /CUMM) 302 MPV (7.4 - 10.4 FL) 8.4 Gran % (42.2 - 75.2 %) 77.1 H Lymphocytes % (20.5 - 51.1 %) 12.9 L Monocytes % (1.7 - 9.3 %) 8.1 Eosinophils % (0 - 5 %) 1.8 Basophils % (0.0 - 2.0 %) 0.1 Absolute Granulocytes (1.4 - 6.5 /CUMM) 8.8 H Absolute Lymphocytes (1.2 - 3.4 /CUMM) 1.5 Absolute Monocytes (0.10 - 0.60 /CUMM) 0.9 H Absolute Eosinophils (0.0 - 0.7 /CUMM) 0.2 Absolute Basophils (0.0 - 0.2 /CUMM) 0 Urines Urine Color (YEL,AMB,STR) YEL Urine Clarity (CLEAR) CLEAR Urine pH (5.0 - 8.0) 7.0 Ur Specific [place] (1.001 - 1.035) 1.010 Urine Protein (NEG,<30 MG/DL) TRACE H Urine Ketones (NEG) NEG Urine Nitrite (NEG) NEG Urine Bilirubin (NEG) NEG Urine Urobilinogen (0.1 - 1.0 EU/dl) 0.2 Ur Leukocyte Esterase (NEG) SMALL H Ur Microscopic SEDIMENT EXAMINED Urine RBC (0 - 5 /HPF) 15-25 H Urine WBC (0 - 2 /HPF) 5-10 H Ur Epithelial Cells (NONE,FEW) RARE Urine Hemoglobin (NEG) SMALL H Urine Glucose (N MG/DL) NEG 04/11 04/10 04/10 0620 0900 0644 Chemistry Sodium (137 - 145 mmol/L) 141 142 Potassium (3.5 - 5.1 mmol/L) 4.6 4.1 Chloride (98 - 107 mmol/L) 101 100 Carbon Dioxide (22 - 30 mmol/L) 25 26 Anion Gap (5 - 16) 16 17 H BUN (9 - 20 mg/dL) 57 H 55 H Creatinine (0.7 - 1.2 mg/dL) 4.4 H 4.6 H Estimated GFR (>60 ml/min) 14 L 13 L BUN/Creatinine Ratio (7 - 25 %) 13.0 12.0 Magnesium (1.6 - 2.3 mg/dL) 1.5 L Prot Electrophoresis (()) SEE NOTE Total Protein (PEP) (6.1 - 8.1 g/dL) 6.6 Albumin % (PEP) (3.8 - 4.8 g/dL) 3.3 L Pehah-8-Fclzqftqa (0.2 - 0.3 g/dL) 0.4 H Fiycn-8-Znpgehihk (0.5 - 0.9 g/dL) 1.1 H Ojeu-9-Bckmwtij (0.4 - 0.6 g/dL) 0.4 Jwyb-6-Ynijzsim (0.2 - 0.5 g/dL) 0.4 Gamma Globulins (0.8 - 1.7 g/dL) 0.9 Hematology CBC w Diff NO MAN DIFF REQ WBC (4.8 - 10.8 /CUMM) 14.3 H RBC (4.70 - 6.10 /CUMM) 3.94 L Hgb (14.0 - 18.0 G/DL) 10.9 L Hct (42 - 52 %) 33.0 L MCV (80.0 - 94.0 FL) 83.8 MCH (27.0 - 31.0 PG) 27.6 MCHC (33.0 - 37.0 G/DL) 33.0 RDW (11.5 - 14.5 %) 14.1 Plt Count (130 - 400 /CUMM) 290 MPV (7.4 - 10.4 FL) 8.3 Gran % (42.2 - 75.2 %) 83.9 H Lymphocytes % (20.5 - 51.1 %) 7.9 L Monocytes % (1.7 - 9.3 %) 6.6 Eosinophils % (0 - 5 %) 1.4 Basophils % (0.0 - 2.0 %) 0.2 Absolute Granulocytes (1.4 - 6.5 /CUMM) 12.0 H Absolute Lymphocytes (1.2 - 3.4 /CUMM) 1.1 L Absolute Monocytes (0.10 - 0.60 /CUMM) 1.0 H Absolute Eosinophils (0.0 - 0.7 /CUMM) 0.2 Absolute Basophils (0.0 - 0.2 /CUMM) 0 04/09 04/09 04/09 1803 1730 1430 Chemistry Sodium (137 - 145 mmol/L) 140 Potassium (3.5 - 5.1 mmol/L) 4.5 Chloride (98 - 107 mmol/L) 97 L Carbon Dioxide (22 - 30 mmol/L) 27 Anion Gap (5 - 16) 16 BUN (9 - 20 mg/dL) 58 H Creatinine (0.7 - 1.2 mg/dL) 4.7 H Estimated GFR (>60 ml/min) 13 L BUN/Creatinine Ratio (7 - 25 %) 12.3 Phosphorus (2.5 - 4.5 mg/dL) 4.2 Magnesium (1.6 - 2.3 mg/dL) 1.5 L Troponin I (<0.11 ng/ml) 0.04 Urines Urine Color (YEL,AMB,STR) STRAW Urine Clarity (CLEAR) CLEAR Urine pH (5.0 - 8.0) 7.5 Ur Specific [place] (1.001 - 1.035) 1.015 Urine Protein (NEG,<30 MG/DL) NEG Urine Ketones (NEG) NEG Urine Nitrite (NEG) NEG Urine Bilirubin (NEG) NEG Urine Urobilinogen (0.1 - 1.0 EU/dl) 0.2 Ur Leukocyte Esterase (NEG) TRACE H Ur Microscopic SEDIMENT EXAMINED Urine RBC (0 - 5 /HPF) 1-3 Urine WBC (0 - 2 /HPF) 1-3 H Ur Epithelial Cells (NONE,FEW) RARE Urine Bacteria (NEG/NONE) RARE H Urine Mucus (FEW,NONE) RARE Urine Hemoglobin (NEG) TRACE-INTACT H Urine Glucose (N MG/DL) NEG
[2017-04-12 14:51] VITALS: BP 136/60
[2017-04-12 22:01] VITALS: BP 150/68
--- NOTE | 2017-04-13 05:21 | PN- Housestaff ---
See Addendum Subjective Follow-up For: Hypertensive emergency leading to flash pulmonary edema Benign prostatic hyperplasia leading to urinary retention Complaints: no complaints Tele-Events Since Last Visit: No acute overnight events Subjective: Patient is seen and examined at the bedside he was much comfortable he was saying sorry that he was yesterday very anxious and that sleep to him shouting over the nursing staff. He was not having lower abdominal discomfort and able to urinate. Bladder scan was still showing retention of around 450 cc of urine. Discussed with Dr. Tidwell over the phone, he advised to discharge the patient without Osorio catheter and continue on the same medication. He need to follow to Dr. Tidwell on Saturday or for further management including TURP. We discussed the management plan with the patient and discharged him. Review of Systems Constitutional: Denies: no symptoms. Objective Last 24 Hrs of Vital Signs/I&O Vital Signs Date Time Temp Pulse Resp B/P B/P Pulse O2 O2 Flow FiO2 Mean Ox Delivery Rate 04/13 0908 80 140/60 04/13 0908 140/60 04/13 0908 80 140/60 04/13 0650 98.1 80 20 140/60 93 Room Air 04/13 0039 86 93 04/12 2201 98.1 87 18 150/68 93 04/12 2121 90 150/68 04/12 2120 90 150/68 04/12 1451 97.6 88 20 136/60 94 Room Air Intake & Output 04/13 1600 04/13 0800 04/13 0000 Intake Total 120 120 Output Total 1000 1075 Balance -880 -955 Intake, Oral 120 120 Output, Urine 1000 1075 Physical Exam General Appearance: Alert, Oriented X3, Cooperative, No Acute Distress Cardiovascular: Normal S1, Normal S2 Lungs: Clear to Auscultation, Normal Air Movement Abdomen: distended Neurological: Normal Gait, Normal Speech, Strength at 5/5 X4 Ext Extremities: No Clubbing, No Cyanosis, No Edema, Normal Pulses Vascular: Normal Pulses, Pulses Symmetrical Current Medications: Current Medications Sig/Stevie Start time Last Medication Dose Route Stop Time Status Admin Acetaminophen 650 MG Q6P PRN 04/04 1445 DCD 04/10 PO 2015 Acetaminophen 1,000 MG Q6P PRN 04/04 1445 DCD IV Amlodipine Besylate 10 MG DAILY 04/09 1000 DCD 04/13 PO 0908 Carvedilol 12.5 MG BID 04/10 1330 DCD 04/13 PO 0908 Doxazosin Mesylate 4 MG DAILY 04/10 1715 DCD 04/13 PO 0909 Finasteride 5 MG DAILY 04/12 1730 DCD 04/13 PO 0908 Heparin Sodium 5,000 UNIT Q8 04/04 2200 DCD 04/13 (Porcine) SC 0624 Omeprazole 20 MG DAILY AC 04/12 0700 DCD 04/13 PO 0624 Patient Medication 1 ED ONE ONE 04/12 1430 DC 04/12 Teaching ED 04/12 1431 1454 Tamsulosin HCl 0.4 MG BID 04/11 1000 DCD 04/13 PO 0908 Last 24 Hrs of Lab/Jian Results Last 24 Hrs of Labs/Mics: Laboratory Tests 04/13/17 0650: Anion Gap 15, Estimated GFR 20 L, BUN/Creatinine Ratio 18.4, CBC w Diff NO MAN DIFF REQ, RBC 3.80 L, MCV 83.8, MCH 28.2, MCHC 33.6, RDW 13.9, MPV 8.4, Gran % 71.2, Lymphocytes % 17.1 L, Monocytes % 9.4 H, Eosinophils % 2.1, Basophils % 0.2, Absolute Granulocytes 6.5, Absolute Lymphocytes 1.6, Absolute Monocytes 0.8 H, Absolute Eosinophils 0.2, Absolute Basophils 0 Assessment/Plan Assessment: Patient is a 61-year-old male with past medical history of hypertension, hyperlipidemia, GERD presented to emergency department with multiple episodes of diarrhea and leading to severe hypotension,CÉSAR/ATN. he was volume resuscitated in general medicine floor followed by,hypertensive emergency leading to flash pulmonary edema and transferred to telemetry floor. He was treated by antihypertensive medications and diuretics. Later on he started having retention of the urine secondary to the BPH. Dr. Tidwell was consulted and he advised for Osorio catheterization which was removed yesterday afterwards, patient kept to be observed for 24 hours. Patient was able to void the urine without any discomfort though he was still retaining the urine in the bladder for about 450 [address] discussing with Dr[address] Tidwell we discharged the patient and advised to follow-up Dr. Tidwell within a week of discharge on the Saturday or for TURP. We discharged patient with same medication as he was on in hospital. Problem List: 1. BPH (benign prostatic hyperplasia) 2. CÉSAR (acute kidney injury) 3. Obstructive uropathy Pain Ratin Pain Location: Not applicable Pain Goal: Remain pain free Pain Plan: Avoid NSAIDs Tomorrow's Labs & Rationales: Not applicable
[2017-04-13 06:50] VITALS: BP 140/60
[2017-04-13 08:22] LABS: ABSOLUTE BASOPHIL COUNT 0 /CUMM (0.0-0.2); ABSOLUTE EOSINOPHIL COUNT 0.2 /CUMM (0.0-0.7); ABSOLUTE GRANULOCYTE CT 6.5 /CUMM (1.4-6.5); ABSOLUTE LYMPH COUNT 1.6 /CUMM (1.2-3.4); ABSOLUTE MONOCYTE COUNT 0.8 /CUMM (0.10-0.60); BASOPHIL % 0.2 % (0.0-2.0); EOSINOPHIL % 2.1 % (0-5); GRANULOCYTE % 71.2 % (42.2-75.2); HEMATOCRIT 31.8 % (42-52); MEAN CORPUSCULAR HGB 28.2 PG (27.0-31.0); MEAN CORPUSCULAR HGB CONC 33.6 G/DL (33.0-37.0); MEAN CORPUSCULAR VOLUME 83.8 FL (80.0-94.0); MEAN PLATELET VOLUME 8.4 FL (7.4-10.4); PLATELET COUNT 324 /CUMM (130-400); RBC DISTRIBUTION WIDTH 13.9 % (11.5-14.5); WHITE BLOOD CELL COUNT 9.1 /CUMM (4.8-10.8)
--- NOTE | 2017-04-13 08:46 | PN- Urology ---
Surgical Brief Attending Note Brief Attending Note: Pt voided OK overnight. VSS afebrile. creatinine slowly going down without solano. WBC improved-now wnl. Plan: dc home without solano. pt to return for UROLIFT in near future.
[2017-04-13 09:08] VITALS: BP 140/60
[2017-04-13] MEDS ORDERED: FINASTERIDE5 M1 PO (09:14)
[2017-04-13] MEDS ORDERED: COREG25 M1 PO (09:14)
[2017-04-13] MEDS ORDERED: DOXAZOSIN MESYLA2 M1 PO (09:14)
[2017-04-13] MEDS ORDERED: NORVASC10 M1 PO (13:47)
== END 2017-04-13 11:15 | DRG 682 ==
LOC: ERH 06:49 → 2NB 13:59 → 1NO 13:59 → ERHI 13:59 → ENRESERV 14:38 → ENTRNSPT 15:42 → EDTRNSPT 15:44 → EDTRNSPTSTS 15:44 → 2NB 15:57 → CMPTRNSPT 16:12 → 2NB 20:30 → 1NO 04-09 11:06 → ENPENDDIS 04-13 10:36 → 1NO 04-13 11:15
PROVIDERS: Emergency Medicine; Internal Medicine Adolescent Medicine; Radiology Vascular & Interventional Radiology; Student in an Organized Health Care Education/Training Program
DX: N17.9 Acute kidney failure, unspecified (principal); R57.1 Hypovolemic shock; E87.2 Acidosis; I95.9 Hypotension, unspecified; A04.5 Campylobacter enteritis; E87.79 Other fluid overload; N18.3 Chronic kidney disease, stage 3 (moderate); G47.33 Obstructive sleep apnea (adult) (pediatric); K21.9 Gastro-esophageal reflux disease without esophagitis; I12.9 Hypertensive chronic kidney disease with stage 1 through stage 4 chronic kidney disease, or unspecified chronic kidney disease; I16.0 Hypertensive urgency; E78.5 Hyperlipidemia, unspecified; Z87.891 Personal history of nicotine dependence; F12.929 Cannabis use, unspecified with intoxication, unspecified; N40.0 Benign prostatic hyperplasia without lower urinary tract symptoms; M19.90 Unspecified osteoarthritis, unspecified site; G43.909 Migraine, unspecified, not intractable, without status migrainosus; R19.7 Diarrhea, unspecified; N13.9 Obstructive and reflux uropathy, unspecified; R33.9 Retention of urine, unspecified
CPT/HCPCS: 1NSP; 2NBSP; 84133; 84300; 86021; 86160; 36415; 36592; 71045; 71046; 74176; 76775; 80307; 81001; 82436; 82570; 84165; 86803; 87045; 87071; 87086; 87328; 87329; 93005; 93010; 93306; 96360; 96361; 99291; G0480; J0360; J1644; J1940; J7042; J7060; J7120